=== PATIENT | female | born 1955 | race Caucasian/White ===

== ENCOUNTER → 2016-12-22 | Outpatient (CLI) | payer OTHER ==
--- NOTE | 2016-12-22 18:08 | CT ---
EXAMINATION TYPE: CT brain wo con DATE OF EXAM: 12/22/2016 5:47 PM COMPARISON: NONE HISTORY: Confusion and FITZGERALD. CT DLP: 975.1 mGycm Automated exposure control for dose reduction was used. FINDINGS: There is moderate patchy hypodensity in the periventricular white matter. There is mild enlargement o f the ventricles. There is no mass effect nor midline shift. There is no sign of intracranial hemorrh age. There is mild cerebral atrophy. There is probably hypodensity as well in the jane. IMPRESSION: Chronic small vessel ischemia. Mild normal pressure type hydrocephalus. No acute intracranial abnorma lity.
== END | disposition home or self-care (01) ==
LOC: RADCTMAIN 17:19
PROVIDERS: ATTEND Family Medicine
DX: I67.82 Cerebral ischemia (principal); G91.9 Hydrocephalus, unspecified
CPT/HCPCS: 70450

== ENCOUNTER → 2017-01-30 | Outpatient (CLI) | payer OTHER ==
--- NOTE | 2017-01-30 10:03 | US ---
EXAMINATION TYPE: US abdomen complete DATE OF EXAM: 01/30/2017 9:28 AM COMPARISON: NONE CLINICAL HISTORY: R94.4 Elevated Liver enzymes,Z86.19 HX HEP C. No pain, NPO EXAM MEASUREMENTS: Liver Length: 19.6 cm Gallbladder Wall: 0.1 cm CBD: 0.5 cm CHD: 0.4 Spleen: 10.2 cm Right Kidney: 12.2 x 5.1 x 4.2 cm Left Kidney: 10.7 x 4.9 x 6.1 cm Pancreas: echogenic, main pancreatic duct- 2.1mm Liver: echogenic, no masses or lesions seen Gallbladder: wnl Evidence for sonographic Bruce's sign: neg CBD: wnl CHD: wnl Spleen: wnl Right Kidney: multiple echogenic foci seen. Largest = 1.3 cm in the lower pole Left Kidney: multiple echogenic foci seen. Largest - 0.8 cm, in the upper pole. Upper IVC: seen Abd Aorta: seen The pancreas is echogenic and likely fatty infiltrated. The liver is enlarged measuring 20 cm. It is echogenic and likely fatty infiltrated. The gallbladder is unremarkable. Gallbladder wall measures 1.1 mm. The distal common hepatic duct buzz sures 4 mm. There are multiple echogenic foci seen within the right kidney there are nonshadowing. These may repr esent angiomyolipomas. There is a similar appearance to the left kidney. There is a 1 cm hypoechoic l esion in the upper pole of the left kidney. This does not meet the requirements of a simple cyst. The spleen is not enlarged. Visualized portions of the aorta and IVC are normal. IMPRESSION: 1. HEPATOMEGALY AND FATTY INFILTRATION OF THE LIVER. 2. MULTIPLE ECHOGENIC FOCI WITHIN THE KIDNEYS BILATERALLY THAT ARE NONSHADOWING AND MAY REPRESENT ANG IOMYOLIPOMAS. 3. PROBABLE FATTY INFILTRATION OF THE PANCREAS. 4. 1 CM LESION IN THE UPPER POLE OF THE LEFT KIDNEY DOES NOT MEET THE REQUIREMENTS OF A SIMPLE CYST. CT OR MR WOULD BE SUGGESTED.
== END | disposition home or self-care (01) ==
LOC: RADUSWWP 08:57
PROVIDERS: ATTEND Family Medicine
DX: R16.0 Hepatomegaly, not elsewhere classified (principal); K76.0 Fatty (change of) liver, not elsewhere classified; Z86.19 Personal history of other infectious and parasitic diseases
CPT/HCPCS: 76700

== ENCOUNTER → 2017-02-04 | Outpatient (CLI) | payer OTHER ==
[2017-02-04 12:13] LABS: CH 30.3; CHCM 33.8; HCT 40.3 % (34.0-46.0); HDW 2.71; HGB 13.6 gm/dL (11.4-16.0); MCH 30.3 pg (25.0-35.0); MCHC 33.7 g/dL (31.0-37.0); MCV 89.8 fL (80.0-100.0); Mean Platelet Volume 6.8; RBC 4.48 m/uL (3.80-5.40); RDW 14.1 % (11.5-15.5); WBC 9.4 k/uL (3.8-10.6)
[2017-02-04 13:49] LABS: ALT 129 U/L (9-52); AST 110 U/L (14-36); Alkaline Phosphatase 44 U/L (38-126); Anion Gap 14 mmol/L; Blood Urea Nitrogen 18 mg/dL (7-17); Calcium 9.8 mg/dL (8.4-10.2); Carbon Dioxide 25 mmol/L (22-30); Chloride 103 mmol/L (98-107); Glucose 211 mg/dL (74-99); Non-African American GFR(MDRD) >60 (>60 ml/min/1.73 sqM); Potassium 4.4 mmol/L (3.5-5.1); Sodium 142 mmol/L (137-145); Total Bilirubin 0.6 mg/dL (0.2-1.3); Total Protein 7.3 g/dL (6.3-8.2)
[2017-02-04 14:31] LABS: Vitamin B12 414 pg/mL (239-931)
== END | disposition home or self-care (01) ==
LOC: LABWHC1 11:39
PROVIDERS: ATTEND Psychiatry & Neurology Pain Medicine
DX: G91.2 (Idiopathic) normal pressure hydrocephalus (principal)
CPT/HCPCS: 36415; 80053; 82607; 84439; 84443; 84481; 85027

== ENCOUNTER → 2017-02-13 | Outpatient (CLI) | payer OTHER ==
[2017-02-13 18:06] LABS: Blood Urea Nitrogen 22 mg/dL (7-17); Non-African American GFR(MDRD) >60 (>60 ml/min/1.73 sqM)
--- NOTE | 2017-02-14 07:37 | CT ---
EXAMINATION TYPE: CT abdomen wo/w con DATE OF EXAM: 02/13/2017 6:36 PM HISTORY: Patient poor historian. Left side renal mass. Abnormal ultrasound. CT DLP: 723.8mGycm Automated Exposure Control for Dose Reduction was Utilized. CONTRAST: CT scan of the abdomen is performed with oral and without and with IV Contrast, patient injected with 100 mL of Omnipaque 300. COMPARISON: Complete abdominal ultrasound January 30, 2017. FINDINGS: LUNG BASES: Cardiomegaly is present. Coronary artery calcification in the RCA is noted. LIVER/GB: Noncontrast images show liver diffusely hypodense consistent with fatty infiltration. PANCREAS: No significant abnormality is seen. SPLEEN: There is 1 cm splenule in the inferior splenic hilum on axial image 21. ADRENALS: No significant abnormality is seen. KIDNEYS: There are multiple pole renal calculi identified bilaterally. Central calcifications could r eflect some vascular calcifications making accurate counting difficult. Calculi measure up to 6 mm in size in the left kidney upper pole level on axial image 24 and 6 mm lower pole level right kidney on axial image 39. Lobulated contour to both kidneys is seen. There is symmetric cortical medullary upt marielos and excretion without evidence of hydronephrosis or obstructing renal calculi bilaterally. Corre sponding to ultrasound upper pole level left kidney anteriorly there is 9 mm low dense lesion too sma ll to further characterize seen best image 23 series 11 but felt to reflect simple cyst. BOWEL: Normal-appearing appendix is seen from cecum. Oral contrast does not reach colonic level. Ther e is no suspicious small or large bowel dilatation. LYMPH NODES: No greater than 1cm abdominal lymph nodes are appreciated. OSSEOUS STRUCTURES: There is facet arthropathy lower lumbar levels. There is mild multilevel spurring in the visualized lower thoracic spine. OTHER: There is ectatic course to the abdominal aorta with mild to moderate calcified atherosclerotic change seen. There are small fat-containing umbilical hernia. IMPRESSION: 1. Multiple nonobstructing bilateral renal calculi. There is subcentimeter lesion medially upper pole level left kidney too small to further characterize felt to reflect simple cysts. No worrisome solid or cystic renal masses are noted bilaterally. 2. Diffuse fatty infiltration of liver is confirmed.
== END | disposition home or self-care (01) ==
LOC: RADCTMAIN 17:22
PROVIDERS: ATTEND Family Medicine
DX: N20.0 Calculus of kidney (principal); N28.9 Disorder of kidney and ureter, unspecified; K76.0 Fatty (change of) liver, not elsewhere classified
CPT/HCPCS: 82565; 84520; 74170; 36415; Q9967

== ENCOUNTER 2017-10-29 12:16 | Emergency (ER) | payer OTHER ==
[2017-10-29 12:30] VITALS: RESP 18
--- NOTE | 2017-10-29 13:14 | ED ---
Psych HPI - General Chief Complaint: Psychiatric Symptoms Stated Complaint: suicidal Time Seen by Provider: 10/29/17 12:19 Source: patient, family, EMS, RN notes reviewed Mode of arrival: EMS Limitations: physical limitation - History of Present Illness Initial Comments: This a 62-year-old female presents emergency Department with chief complaint of left ankle pain, difficulty and bleeding. Patient states she fell a few days ago seen at [facility]. Patient states she has CT of her head and neck, x-rays of her pelvis and it's a server engineer left ankle. Everything was normal except for small fracture of her coccyx region. Patient states the pain seems be unbearable and she states ever since she's been home she just been laying underground scooted along because of her left ankle. She states that she was told it was not fracture. Patient denies any headache or dizziness at this time. Patient states that she has been going on a bedpan or and a brief. She has had some problems with urinary tract infections in the past. She does state that she wishes she would just never wake up again she states that she has had thoughts that she rather just be though she states that she is not specifically suicidal. Family has petitioned her because of her thoughts and inability to care of herself at home. He shouldn't was supposed to start antidepressants though has not started them. - Related Data Home Medications Medication Instructions Recorded Confirmed Insulin Glargine,Hum.rec.anlog 25 unit SQ HS 10/29/17 10/29/17 [Lantus Solostar] Lisinopril 40 mg PO DAILY 10/29/17 10/29/17 Sertraline HCl [Zoloft] 50 mg PO DAILY 10/29/17 10/29/17 glipiZIDE [Glucotrol] 10 mg PO AC-BID 10/29/17 10/29/17 metFORMIN HCL 1,000 mg PO BID 10/29/17 10/29/17 traMADol HCL [Ultram] 50 mg PO Q6HR PRN 10/29/17 10/29/17 Previous Rx's Medication Instructions Recorded Acetaminophen-Codeine 300-30mg 1 tab PO Q4H PRN #20 tablet 10/29/17 [Tylenol #3] Ciprofloxacin HCl [Cipro] 500 mg PO Q12HR #14 tablet 10/29/17 Allergies Allergy/AdvReac Type Severity Reaction Status Date / Time Tetracyclines Allergy Unknown Verified 10/29/17 13:11 Review of Systems ROS Statement: Those systems with pertinent positive or pertinent negative responses have been documented in the HPI. ROS Other: All systems not noted in ROS Statement are negative. Past Medical History Past Medical History: Diabetes Mellitus, Hypertension History of Any Multi-Drug Resistant Organisms: None Reported Past Surgical History: Section, Orthopedic Surgery Past Psychological History: Depression Smoking Status: Current every day smoker Past Alcohol Use History: Occasional Past Drug Use History: None Reported General Exam Limitations: no limitations, physical limitation General appearance: alert, in no apparent distress Head exam: Present: atraumatic, normocephalic, normal inspection Eye exam: Present: normal appearance, PERRL, EOMI. Absent: scleral icterus, conjunctival injection, periorbital swelling ENT exam: Present: normal exam, normal oropharynx, mucous membranes moist Neck exam: Present: normal inspection, full ROM. Absent: tenderness, meningismus, lymphadenopathy Respiratory exam: Present: normal lung sounds bilaterally. Absent: respiratory distress, wheezes, rales, rhonchi, stridor Cardiovascular Exam: Present: regular rate, normal rhythm, normal heart sounds. Absent: systolic murmur, diastolic murmur, rubs, gallop, clicks GI/Abdominal exam: Present: soft, normal bowel sounds. Absent: distended, tenderness, guarding, rebound, rigid Extremities exam: Present: other (Left foot and ankle there is moderate ecchymosis noted tenderness over the lateral malleolus. Neurovascular intact) Back exam: Present: full ROM, tenderness (Tenderness of the lower coccyx sacral region) Neurological exam: Present: alert, oriented X3, CN II-XII intact, reflexes normal. Absent: motor sensory deficit Psychiatric exam: Present: depressed Skin exam: Present: warm, dry, intact, normal color. Absent: rash Course Vital Signs 10/29/17 10/29/17 12:21 14:27 Temperature 97.4 F L Pulse Rate 97 102 H Respiratory 18 18 Rate Blood Pressure 196/95 171/80 O2 Sat by Pulse 98 100 Oximetry Medical Decision Making - Medical Decision Making 62-year-old female presented emergency department for ankle pain, psychiatric evaluation. Patient reportedly had a fall a few days ago negative x-rays repeat x-rays here show no acute fracture. Patient was able to ambulate with assistance here she will be given an Aircast splint for support, written short course of pain medication and she is advised to use either her walker or cane that she has at home. Patient was evaluated by EPS his family states that she is depressed though they found no evidence of an patient criteria. She is not suicidal has no plan to harm her self. Patient will be follow-up outpatient and return for any worsening symptoms. Patient and family agree to plan - Lab Data Result diagrams: 10/29/17 13:08 10/29/17 13:08 Lab Results 10/29/17 10/29/17 10/29/17 Range/Units 13:08 13:08 14:20 WBC 9.5 (3.8-10.6) k/uL RBC 5.01 (3.80-5.40) m/uL Hgb 14.7 (11.4-16.0) gm/dL Hct 44.0 (34.0-46.0) % MCV 87.7 (80.0-100.0) fL MCH 29.3 (25.0-35.0) pg MCHC 33.4 (31.0-37.0) g/dL RDW 13.1 (11.5-15.5) % Plt Count 230 (150-450) k/uL Neutrophils % 72 % Lymphocytes % 22 % Monocytes % 4 % Eosinophils % 1 % Basophils % 0 % Neutrophils # 6.8 (1.3-7.7) k/uL Lymphocytes # 2.1 (1.0-4.8) k/uL Monocytes # 0.4 (0-1.0) k/uL Eosinophils # 0.1 (0-0.7) k/uL Basophils # 0.0 (0-0.2) k/uL Sodium 140 (137-145) mmol/L Potassium 3.8 (3.5-5.1) mmol/L Chloride 102 (98-107) mmol/L Carbon Dioxide 23 (22-30) mmol/L Anion Gap 15 mmol/L BUN 18 H (7-17) mg/dL Creatinine 0.56 (0.52-1.04) mg/dL Est GFR (MDRD) Af Amer >60 (>60 ml/min/1.73 sqM) Est GFR (MDRD) Non-Af >60 (>60 ml/min/1.73 sqM) Glucose 262 H (74-99) mg/dL Calcium 9.5 (8.4-10.2) mg/dL Total Bilirubin 0.7 (0.2-1.3) mg/dL AST 44 H (14-36) U/L ALT 58 H (9-52) U/L Alkaline Phosphatase 55 (38-126) U/L Creatine Kinase 338 H (30-135) U/L Total Protein 7.2 (6.3-8.2) g/dL Albumin 4.3 (3.5-5.0) g/dL Urine Color Yellow Urine Appearance Cloudy H (Clear) Urine pH 5.5 (5.0-8.0) Ur Specific [place] 1.019 (1.001-1.035) Urine Protein 1+ H (Negative) Urine Glucose (UA) 4+ H (Negative) Urine Ketones 2+ H (Negative) Urine Blood Small H (Negative) Urine Nitrite Positive H (Negative) Urine Bilirubin Negative (Negative) Urine Urobilinogen <2.0 (<2.0) mg/dL Ur Leukocyte Esterase Large H (Negative) Urine RBC 12 H (0-5) /hpf Urine WBC >182 H (0-5) /hpf Urine WBC Clumps Few H (None) /hpf Ur Squamous Epith Cells 6 H (0-4) /hpf Urine Bacteria Many H (None) /hpf Urine Mucus Rare H (None) /hpf Urine Yeast (Budding) Many H (None) /hpf Urine Opiates Screen Not Detected (NotDetected) Ur Oxycodone Screen Not Detected (NotDetected) Urine Methadone Screen Not Detected (NotDetected) Ur Propoxyphene Screen Not Detected (NotDetected) Ur Barbiturates Screen Not Detected (NotDetected) U Tricyclic Antidepress Not Detected (NotDetected) Ur Phencyclidine Scrn Not Detected (NotDetected) Ur Amphetamines Screen Not Detected (NotDetected) U Methamphetamines Scrn Not Detected (NotDetected) U Benzodiazepines Scrn Not Detected (NotDetected) Urine Cocaine Screen Not Detected (NotDetected) U Marijuana (THC) Screen Not Detected (NotDetected) Serum Alcohol <10 mg/dL Disposition Clinical Impression: Left ankle sprain, UTI (urinary tract infection), Depression Disposition: HOME SELF-CARE Condition: Stable Instructions: Ankle Sprain (ED) Additional Instructions: Please return to the Emergency Department if symptoms worsen or any other concerns. Prescriptions: Acetaminophen-Codeine 300-30mg [Tylenol #3] 1 tab PO Q4H PRN #20 tablet PRN Reason: pain Ciprofloxacin HCl [Cipro] 500 mg PO Q12HR #14 tablet Referrals: Nakita Meyer MD [Primary Care Provider] - 1-2 days Time of Disposition: 16:18
[2017-10-29 13:24] LABS: Basophils % (A) 0 %; Eosinophils # (A) 0.1 k/uL (0-0.7); Eosinophils % (A) 1 %; HGB 14.7 gm/dL (11.4-16.0); Lymphocytes # (A) 2.1 k/uL (1.0-4.8); Lymphocytes % (A) 22 %; MCH 29.3 pg (25.0-35.0); MCHC 33.4 g/dL (31.0-37.0); MCV 87.7 fL (80.0-100.0); Mean Platelet Volume 7.6; Monocytes # (A) 0.4 k/uL (0-1.0); Monocytes % (A) 4 %; Neutrophils # (A) 6.8 k/uL (1.3-7.7); Neutrophils % (A) 72 %; Platelet Count 230 k/uL (150-450); RBC 5.01 m/uL (3.80-5.40); RDW 13.1 % (11.5-15.5); WBC 9.5 k/uL (3.8-10.6)
[2017-10-29 13:32] LABS: ALT 58 U/L (9-52); AST 44 U/L (14-36); Albumin 4.3 g/dL (3.5-5.0); Alcohol <10 mg/dL; Alkaline Phosphatase 55 U/L (38-126); Anion Gap 15 mmol/L; Blood Urea Nitrogen 18 mg/dL (7-17); Calcium 9.5 mg/dL (8.4-10.2); Carbon Dioxide 23 mmol/L (22-30); Chloride 102 mmol/L (98-107); Creatine Kinase 338 U/L (30-135); Glucose 262 mg/dL (74-99); Potassium 3.8 mmol/L (3.5-5.1); Sodium 140 mmol/L (137-145); Total Bilirubin 0.7 mg/dL (0.2-1.3); Total Protein 7.2 g/dL (6.3-8.2)
--- NOTE | 2017-10-29 13:37 | XR ---
EXAMINATION TYPE: XR ankle complete LT DATE OF EXAM: 10/29/2017 COMPARISON: NONE HISTORY: Pain TECHNIQUE: 3 views of the left ankle are submitted for evaluation. FINDINGS: There is no evidence for fracture or dislocation. Ankle mortise is intact. Soft tissues are within normal limits. IMPRESSION: 1. No evidence for acute fracture.
[2017-10-29 14:44] LABS: Appearance,Urine Cloudy (Clear); Bacteria,Urine Many /hpf; Bilirubin,Urine Negative (Negative); Blood,Urine Small (Negative); Budding Yeast,Urine Many /hpf; Color,Urine Yellow; Glucose,Urine (UA) 4+ (Negative); Leukocyte Esterase,Urine Large (Negative); Mucus,Urine Rare /hpf; Nitrite,Urine Positive (Negative); PH, Urine 5.5 (5.0-8.0); Protein,Urine 1+ (Negative); RBC,Urine 12 /hpf (0-5); Specific Gravity,Urine 1.019 (1.001-1.035); Squamous Epithelial Cell,Urine 6 /hpf (0-4); Urobilinogen,Urine <2.0 mg/dL (<2.0); WBC,Urine >182 /hpf (0-5)
[2017-10-29] MEDS: LEVOFLOXACIN 500 MG TAB PO STA ×2 (14:52→15:14)
[2017-10-29] MEDS ORDERED: LISINOPRIL 20 MG TAB PO STA (14:52)
[2017-10-29 14:55] LABS: Amphetamine Screen,Urine Not Detected (NotDetected); Barbiturate Screen,Urine Not Detected (NotDetected); Benzodiazepines Screen,Urine Not Detected (NotDetected); Cocaine Screen,Urine Not Detected (NotDetected); Methadone Screen, Urine Not Detected (NotDetected); Opiate Screen,Urine Not Detected (NotDetected); Oxycodone Screen, Urine Not Detected (NotDetected); Phencyclidine Screen,Urine Not Detected (NotDetected); Tricyclic Antidepressant,Urine Not Detected (NotDetected); Urn Cannabinoid Scrn Not Detected (NotDetected)
[2017-10-29 15:20] LABS: Ketones,Urine 2+ (Negative)
[2017-10-29 16:49] VITALS: BP 162/77; PULSE 116; TEMP 97.3
== END 2017-10-29 16:50 | disposition home or self-care (01) ==
LOC: EC 12:16
DX: S93.402A Sprain of unspecified ligament of left ankle, initial encounter (principal); N39.0 Urinary tract infection, site not specified; F32.9 Major depressive disorder, single episode, unspecified; E11.9 Type 2 diabetes mellitus without complications; I10 Essential (primary) hypertension; Z79.4 Long term (current) use of insulin; Z79.899 Other long term (current) drug therapy; Z88.1 Allergy status to other antibiotic agents; W19.XXXA Unspecified fall, initial encounter
CPT/HCPCS: 82075; 36415; 80053; 82550; 85025; 81001; 80306; 80320; 73610; 99284; 29515; L4350

== ENCOUNTER → 2018-01-08 | Outpatient (CLI) | payer OTHER ==
--- NOTE | 2018-01-09 12:27 | MR ---
MR brain without contrast HISTORY: Memory loss, R 41.3 Multiplanar multisequence imaging through the brain Correlation to CT brain 12/22/2016. There are some technical limitations. There is no restricted diffusion. Cortical atrophy is again noted. White matter demyelination changes are extensive, there is abnormal increased signal also noted within the jane with a correlating low signal on T1-weighted images suggestive of some local encephalomalacia. Some encephalomalacia also terrazas spected within the corpus callosum and left cerebellar hemisphere. The pituitary, cervical medullary junction, cerebellopontine angles are within normal limits. No evident hemorrhage. Prominence of the ventricles likely in accordance with patient's cortical atrophy. The orbits show symmetric appearance . There are normal vascular flow voids. IMPRESSION: Exam is somewhat technically limited. Findings likely represent chronic small vessel isch emic changes, age related atrophy.
== END ==
LOC: RADMRIMAIN 19:45
PROVIDERS: ATTEND Psychiatry & Neurology Pain Medicine
DX: R41.3 Other amnesia (principal)
CPT/HCPCS: 70551

== ENCOUNTER 2018-03-05 14:16 | Inpatient (IN) | payer OTHER ==
[2018-03-05] MEDS ORDERED: SODIUM CHLORIDE 0.9% 1,000 ML IV STA ×2 (14:31)
[2018-03-05] MEDS ORDERED: RX INFO: IV CONTRAST WAS GIVEN 1 EACH MISC MISCELLANE PRN (14:31)
[2018-03-05] MEDS ORDERED: ACETAMINOPHEN IV (For NPO) 1,000 MG in EMPTY BAG 1 BAG IVPB STA (14:31)
[2018-03-05] MEDS ORDERED: cefTRIAXone 2,000 MG in SODIUM CHLORIDE 0.9% 100 ML IVPB STA (14:32)
[2018-03-05] MEDS ORDERED: cefTRIAXone IN SWFI 2,000 MG/20 ML SYRINGE IVP STA (14:34)
--- NOTE | 2018-03-05 14:58 | ED ---
General Adult HPI - General Chief complaint: Neuro Symptoms/Deficit Stated complaint: Poss CVA Time Seen by Provider: 03/05/18 14:22 Source: patient, family, EMS, RN notes reviewed, old records reviewed Mode of arrival: EMS Limitations: no limitations - History of Present Illness Initial comments: This is a 8-year-old female the ER for evaluation. Patient is accepted in transfer for evaluation regarding CVA. Patient had 2 visits to [facility] yesterday for evaluation. Personal for nausea vomiting second was for severe left-sided weakness and paralysis hemiparesis. Patient was found on ground at her house. By family, unknown time of onset of symptoms. Patient has history of CVA with history of diabetes and hypertension. Patient accepted in transfer for evaluation regarding CVA. Patient herself is complaining of severe left-sided weakness - Related Data Home Medications Medication Instructions Recorded Confirmed Insulin Glargine,Hum.rec.anlog 33 unit SQ HS 10/29/17 03/05/18 [Lantus Solostar] Lisinopril 40 mg PO DAILY 10/29/17 03/05/18 Sertraline HCl [Zoloft] 50 mg PO DAILY 10/29/17 03/05/18 glipiZIDE [Glucotrol] 10 mg PO AC-BID 10/29/17 03/05/18 metFORMIN HCL 1,000 mg PO BID 10/29/17 03/05/18 traMADol HCL [Ultram] 50 mg PO Q6HR PRN 10/29/17 03/05/18 Aspirin EC [Ecotrin Low Dose] 81 mg PO DAILY 03/05/18 03/05/18 Allergies Allergy/AdvReac Type Severity Reaction Status Date / Time Tetracyclines Allergy Unknown Verified 03/05/18 14:52 Review of Systems ROS Statement: Those systems with pertinent positive or pertinent negative responses have been documented in the HPI. ROS Other: All systems not noted in ROS Statement are negative. Past Medical History Past Medical History: CVA/TIA, Diabetes Mellitus, Hypertension Additional Past Medical History / Comment(s): cva 2005 History of Any Multi-Drug Resistant Organisms: None Reported Past Surgical History: Section, Orthopedic Surgery Additional Past Surgical History / Comment(s): left knee sx Past Psychological History: Depression Smoking Status: Current every day smoker Past Alcohol Use History: Occasional Past Drug Use History: None Reported General Exam - General Exam Comments Initial Comments: NIH of 15, left-sided hemiparesis with left gaze Limitations: no limitations General appearance: alert, in no apparent distress Head exam: Present: atraumatic, normocephalic, normal inspection Eye exam: Present: normal appearance, PERRL, EOMI. Absent: scleral icterus, conjunctival injection, periorbital swelling ENT exam: Present: normal exam, mucous membranes moist Neck exam: Present: normal inspection. Absent: tenderness, meningismus, lymphadenopathy Respiratory exam: Present: normal lung sounds bilaterally. Absent: respiratory distress, wheezes, rales, rhonchi, stridor Cardiovascular Exam: Present: regular rate, normal rhythm, normal heart sounds. Absent: systolic murmur, diastolic murmur, rubs, gallop, clicks GI/Abdominal exam: Present: soft, normal bowel sounds. Absent: distended, tenderness, guarding, rebound, rigid Extremities exam: Present: normal inspection, full ROM, normal capillary refill. Absent: tenderness, pedal edema, joint swelling, calf tenderness Back exam: Present: normal inspection Neurological exam: Present: alert, oriented X3, CN II-XII intact Psychiatric exam: Present: normal affect, normal mood Skin exam: Present: warm, dry, intact, normal color. Absent: rash Course Vital Signs 03/05/18 03/05/18 03/05/18 14:19 14:30 15:30 Temperature 98.8 F Pulse Rate 99 98 96 Respiratory 18 18 18 Rate Blood Pressure 159/74 182/86 161/77 O2 Sat by Pulse 95 98 98 Oximetry - Reevaluation(s) Reevaluation #1: 03/05/18 14:58 Spoke with transferring physician, positive CVA Reevaluation #2: 03/05/18 16:39 Note TPA secondary to a patient transfer secondary to time of onset, poor historian EKG Findings - EKG Comments: EKG Findings:: EKG shows normal sinus rhythm rate of 97, NH 196, QRS 90, QTc 474 Medical Decision Making - Medical Decision Making 62 female accepted in transfer for CVA with left-sided hemiparesis. Patient also noted to be fevers with UTI. We'll place on antibiotics rehydrate give aspirin admit patient for evaluation regarding CVA. Patient has history of CVA. Patient is poor historian, - Lab Data Result diagrams: 03/05/18 15:00 03/05/18 15:00 Lab Results 03/05/18 03/05/18 03/05/18 Range/Units 15:00 15:00 15:00 WBC 15.5 H (3.8-10.6) k/uL RBC 4.60 (3.80-5.40) m/uL Hgb 13.2 (11.4-16.0) gm/dL Hct 39.1 (34.0-46.0) % MCV 84.9 (80.0-100.0) fL MCH 28.6 (25.0-35.0) pg MCHC 33.7 (31.0-37.0) g/dL RDW 14.0 (11.5-15.5) % Plt Count 240 (150-450) k/uL Neutrophils % 86 % Lymphocytes % 9 % Monocytes % 3 % Eosinophils % 1 % Basophils % 0 % Neutrophils # 13.4 H (1.3-7.7) k/uL Lymphocytes # 1.4 (1.0-4.8) k/uL Monocytes # 0.5 (0-1.0) k/uL Eosinophils # 0.1 (0-0.7) k/uL Basophils # 0.0 (0-0.2) k/uL PT (9.0-12.0) sec INR (<1.2) APTT (22.0-30.0) sec Sodium 139 (137-145) mmol/L Potassium 3.4 L (3.5-5.1) mmol/L Chloride 101 (98-107) mmol/L Carbon Dioxide 24 (22-30) mmol/L Anion Gap 14 mmol/L BUN 17 (7-17) mg/dL Creatinine 0.47 L (0.52-1.04) mg/dL Est GFR (CKD-EPI)AfAm >90 (>60 ml/min/1.73 sqM) Est GFR (CKD-EPI)NonAf >90 (>60 ml/min/1.73 sqM) Glucose 182 H (74-99) mg/dL Calcium 9.2 (8.4-10.2) mg/dL Total Bilirubin 0.4 (0.2-1.3) mg/dL AST 21 (14-36) U/L ALT 38 (9-52) U/L Alkaline Phosphatase 46 (38-126) U/L Total Creatine Kinase 87 (30-135) U/L CK-MB (CK-2) 1.2 (0.0-2.4) ng/mL CK-MB (CK-2) Rel Index 1.4 Troponin I <0.012 (0.000-0.034) ng/mL Total Protein 6.9 (6.3-8.2) g/dL Albumin 4.3 (3.5-5.0) g/dL Urine Color Urine Appearance (Clear) Urine pH (5.0-8.0) Ur Specific [place] (1.001-1.035) Urine Protein (Negative) Urine Glucose (UA) (Negative) Urine Ketones (Negative) Urine Blood (Negative) Urine Nitrite (Negative) Urine Bilirubin (Negative) Urine Urobilinogen (<2.0) mg/dL Ur Leukocyte Esterase (Negative) Urine RBC (0-5) /hpf Urine WBC (0-5) /hpf Ur Squamous Epith Cells (0-4) /hpf Urine Mucus (None) /hpf Influenza Type A RNA (Not Detectd) Influenza Type B (PCR) (Not Detectd) 03/05/18 03/05/18 03/05/18 Range/Units 15:00 15:00 15:20 WBC (3.8-10.6) k/uL RBC (3.80-5.40) m/uL Hgb (11.4-16.0) gm/dL Hct (34.0-46.0) % MCV (80.0-100.0) fL MCH (25.0-35.0) pg MCHC (31.0-37.0) g/dL RDW (11.5-15.5) % Plt Count (150-450) k/uL Neutrophils % % Lymphocytes % % Monocytes % % Eosinophils % % Basophils % % Neutrophils # (1.3-7.7) k/uL Lymphocytes # (1.0-4.8) k/uL Monocytes # (0-1.0) k/uL Eosinophils # (0-0.7) k/uL Basophils # (0-0.2) k/uL PT 10.1 (9.0-12.0) sec INR 1.0 (<1.2) APTT 23.7 (22.0-30.0) sec Sodium (137-145) mmol/L Potassium (3.5-5.1) mmol/L Chloride (98-107) mmol/L Carbon Dioxide (22-30) mmol/L Anion Gap mmol/L BUN (7-17) mg/dL Creatinine (0.52-1.04) mg/dL Est GFR (CKD-EPI)AfAm (>60 ml/min/1.73 sqM) Est GFR (CKD-EPI)NonAf (>60 ml/min/1.73 sqM) Glucose (74-99) mg/dL Calcium (8.4-10.2) mg/dL Total Bilirubin (0.2-1.3) mg/dL AST (14-36) U/L ALT (9-52) U/L Alkaline Phosphatase (38-126) U/L Total Creatine Kinase (30-135) U/L CK-MB (CK-2) (0.0-2.4) ng/mL CK-MB (CK-2) Rel Index Troponin I (0.000-0.034) ng/mL Total Protein (6.3-8.2) g/dL Albumin (3.5-5.0) g/dL Urine Color Yellow Urine Appearance Clear (Clear) Urine pH 5.5 (5.0-8.0) Ur Specific [place] >1.050 H (1.001-1.035) Urine Protein 1+ H (Negative) Urine Glucose (UA) Negative (Negative) Urine Ketones Negative (Negative) Urine Blood Large H (Negative) Urine Nitrite Negative (Negative) Urine Bilirubin Negative (Negative) Urine Urobilinogen <2.0 (<2.0) mg/dL Ur Leukocyte Esterase Moderate H (Negative) Urine RBC 50 H (0-5) /hpf Urine WBC >182 H (0-5) /hpf Ur Squamous Epith Cells 13 H (0-4) /hpf Urine Mucus Occasional H (None) /hpf Influenza Type A RNA Not Detected (Not Detectd) Influenza Type B (PCR) Not Detected (Not Detectd) - Radiology Data Radiology results: report reviewed (S x-ray CT brain CTA had neck negative), image reviewed Disposition Clinical Impression: Cerebrovascular accident, UTI (urinary tract infection) Disposition: ADMITTED IP TO THIS HOSP Condition: Serious Is patient prescribed a controlled substance at d/c from ED?: No Referrals: Nakita Meyer MD [Primary Care Provider] - 1-2 days
--- NOTE | 2018-03-05 15:01 | CT ---
EXAMINATION TYPE: CT brain wo con for TPA DATE OF EXAM: 03/05/2018 COMPARISON: Prior CT brain 12/22/2016 HISTORY: Left sided weakness CT DLP: 853.3 mGycm Automated exposure control for dose reduction was used. Helical imaging through the brain. FINDINGS: Cerebral vascular calcifications are present. Cortical atrophy is again noted. There is no hemorrhage or hydrocephalus. Periventricular white matter shows patchy low attenuation as on prior exam. IMPRESSION: NO ACUTE ABNORMALITY. AGE-RELATED ATROPHY AND CHRONIC SMALL VESSEL ISCHEMIA.
--- NOTE | 2018-03-05 15:15 | CT ---
EXAMINATION TYPE: CT angio head neck DATE OF EXAM: 03/05/2018 HISTORY: Left sided weakness COMPARISON: CT brain same date CT DLP: 274.1 mGycm. Automated Exposure Control for Dose Reduction was Utilized. TECHNIQUE: CTA scan of the neck is performed with IV Contrast, patient injected with 65 mL of Isovue 370, axial images are obtained, coronal and sagittal reformatted images are reviewed. Three-D recons tructed images are created on an independent workstation and reviewed. FINDINGS: Carotid/Vascular Structures: No significant stenosis is evident. The thoracic aorta is patent, there is a three-vessel arch present. Left and right subclavian arteries, left and right common carotid art eries, innominate artery are patent. No evident dissection or embolus. No significant stenosis of the proximal internal carotid arteries is seen. Left vertebral artery is dominant. Basilar artery is pat ent. Internal carotid arteries are patent within the calvarium. No evident aneurysm. Cerebral vascula r calcifications are present. Other: Lung apices show no mass. Degenerative disc changes are present in the visualized spine. IMPRESSION: No evident embolus or aneurysm, no dissection. Cerebral vascular disease is noted.
[2018-03-05 15:16] LABS: Basophils % (A) 0 %; Eosinophils # (A) 0.1 k/uL (0-0.7); Eosinophils % (A) 1 %; HCT 39.1 % (34.0-46.0); HGB 13.2 gm/dL (11.4-16.0); Lymphocytes # (A) 1.4 k/uL (1.0-4.8); Lymphocytes % (A) 9 %; MCH 28.6 pg (25.0-35.0); MCHC 33.7 g/dL (31.0-37.0); MCV 84.9 fL (80.0-100.0); Monocytes # (A) 0.5 k/uL (0-1.0); Monocytes % (A) 3 %; Neutrophils # (A) 13.4 k/uL (1.3-7.7); Neutrophils % (A) 86 %; Platelet Count 240 k/uL (150-450); WBC 15.5 k/uL (3.8-10.6)
[2018-03-05 15:23] LABS: ALT 38 U/L (9-52); AST 21 U/L (14-36); Albumin 4.3 g/dL (3.5-5.0); Alkaline Phosphatase 46 U/L (38-126); Anion Gap 14 mmol/L; Blood Urea Nitrogen 17 mg/dL (7-17); Calcium 9.2 mg/dL (8.4-10.2); Carbon Dioxide 24 mmol/L (22-30); Chloride 101 mmol/L (98-107); Glucose 182 mg/dL (74-99); Potassium 3.4 mmol/L (3.5-5.1); Sodium 139 mmol/L (137-145); Total Bilirubin 0.4 mg/dL (0.2-1.3); Total Protein 6.9 g/dL (6.3-8.2)
[2018-03-05 15:26] LABS: Partial Thromboplastin Time 23.7 sec (22.0-30.0); Prothrombin Time 10.1 sec (9.0-12.0)
[2018-03-05 15:40] LABS: Creatine Kinase 87 U/L (30-135)
[2018-03-05 15:42] LABS: Appearance,Urine Clear (Clear); Bilirubin,Urine Negative (Negative); Blood,Urine Large (Negative); Color,Urine Yellow; Glucose,Urine (UA) Negative (Negative); Ketones,Urine Negative (Negative); Leukocyte Esterase,Urine Moderate (Negative); Mucus,Urine Occasional /hpf; Nitrite,Urine Negative (Negative); PH, Urine 5.5 (5.0-8.0); Protein,Urine 1+ (Negative); RBC,Urine 50 /hpf (0-5); Squamous Epithelial Cell,Urine 13 /hpf (0-4); Urobilinogen,Urine <2.0 mg/dL (<2.0); WBC,Urine >182 /hpf (0-5)
[2018-03-05 15:43] LABS: Specific Gravity,Urine >1.050 (1.001-1.035)
[2018-03-05 15:54] LABS: Creatine Kinase MB 1.2 ng/mL (0.0-2.4); Troponin I <0.012 ng/mL (0.000-0.034)
--- NOTE | 2018-03-05 16:27 | XR ---
EXAMINATION TYPE: XR chest 2V DATE OF EXAM: 03/05/2018 COMPARISON: NONE HISTORY: Altered mental status TECHNIQUE: Frontal and lateral views of the chest are obtained. FINDINGS: The patient is rotated. There are overlying cardiac leads. There is no focal air space [place] city, pleural effusion, or pneumothorax seen. The cardiac silhouette size is enlarged. The osseous structures are intact. IMPRESSION: Cardiomegaly.
[2018-03-05] MEDS ORDERED: ASPIRIN 325 MG TAB PO STA (16:39)
[2018-03-05] MEDS: ASPIRIN 325 MG TAB PO SCH (18:30)
[2018-03-05] MEDS: SODIUM CHLORIDE 0.9% 1,000 ML IV SCH ×2 (18:33→21:39)
--- NOTE | 2018-03-05 18:40 | P.HPIM ---
History of Present Illness H&P Date: 03/05/18 Chief Complaint: Left-sided weakness overall The patient is a right hand dominant 62-year-old obese female with a past medicall history of type 2 diabetes known to be insulin-dependent, essential hypertension who presents to the ER after being transferred here from [place]. The patient reports that her problems began last night when she fell approximately 10 PM was able to get up, EMS was called and she was taken to [place] where they reportedly did a CAT scan urinalysis which was reportedly negative, the patient reports that she was discharged home not being able to ambulate and subsequently fell at approximately 3 AM this morning, the patient reported feeling lightheaded prior to her fall, she reports a history of several episodes of diarrhea preceding the event. On waking up at approximately 11:30 today the patient was unable to move the left side of her body, she was also slurring her speech, and had a left-sided facial droop and eyelid ptosis. The patient does report some head trauma in the occipital area but denies any loss of consciousness or blurry vision. The patient has previously been seen by Dr. Blake in neurology clinic, the patient is an ongoing smoker. The patient denied any chest pain or shortness of breath. In the ER she was given aspirin and recommended for admission to rule out right MCA stroke. The patient's previous workup done at [place] was sent here on disc, on admission the patient was noted to have a urinalysis is of a UTI she was started on Rocephin. Also with noted leukocytosis of 15 Review of Systems 14 point review of systems negative except per HPI Past Medical History Past Medical History: CVA/TIA, Diabetes Mellitus, Hypertension Additional Past Medical History / Comment(s): cva 2005 History of Any Multi-Drug Resistant Organisms: None Reported Past Surgical History: Section, Orthopedic Surgery Additional Past Surgical History / Comment(s): left knee sx Past Psychological History: Depression Smoking Status: Current every day smoker Past Alcohol Use History: Occasional Past Drug Use History: None Reported Medications and Allergies Home Medications Medication Instructions Recorded Confirmed Type Insulin Glargine,Hum.rec.anlog 33 unit SQ HS 10/29/17 03/05/18 History [Lantus Solostar] Lisinopril 40 mg PO DAILY 10/29/17 03/05/18 History Sertraline HCl [Zoloft] 50 mg PO DAILY 10/29/17 03/05/18 History glipiZIDE [Glucotrol] 10 mg PO AC-BID 10/29/17 03/05/18 History metFORMIN HCL 1,000 mg PO BID 10/29/17 03/05/18 History traMADol HCL [Ultram] 50 mg PO Q6HR PRN 10/29/17 03/05/18 History Aspirin EC [Ecotrin Low Dose] 81 mg PO DAILY 03/05/18 03/05/18 History Allergies Allergy/AdvReac Type Severity Reaction Status Date / Time Tetracyclines Allergy Unknown Verified 03/05/18 14:52 Physical Exam Vitals: Vital Signs Temp Pulse Pulse Resp BP BP Pulse Ox 03/05/18 17:42 93 16 159/74 99 03/05/18 16:30 90 16 180/81 96 03/05/18 16:00 96 18 155/75 98 03/05/18 15:30 96 18 161/77 98 03/05/18 15:15 96 16 174/79 98 03/05/18 15:00 88 18 190/83 99 03/05/18 14:45 100 18 166/88 98 03/05/18 14:30 98 18 182/86 98 03/05/18 14:19 98.8 F 99 18 159/74 95 Intake and Output 03/05/18 03/05/18 03/05/18 06:59 14:59 22:59 Other: Weight 68.039 kg Constitutional: No acute distress, conversant, pleasant Eyes: Anicteric sclerae, moist conjunctiva, left eye ptosis ENMT: NC/AT,Oropharynx clear, no erythema, exudates Neck:Supple, FROM, no masses, or JVD, No carotid bruits; No thyromegaly Lungs: Clear to auscultation, Clear to percussion, Normal respiratory effort, no accessory muscle use Cardiovascular: Heart regular in rate and rhythm, No murmurs, gallops, or rubs no peripheral edema Abdominal: Soft Nontender, nom distended, no guarding, no rebound or rigidity, Normoactive bowel sounds No hepatomegaly, No splenomegaly, No palpable mass No abdominal wall hernia noted Skin: Normal temperature, tone, texture, turgor, No induration No subcutaneous nodules, No rash, lesions, No ulcers Extremities:No digital cyanosis No clubbing, Pedal pulses intact and symmetrical Radial pulses intact and symmetrical Normal gait and station, No calf tenderness Psychiatric: Alert and oriented to person, place and time, Appropriate affect Intact judgement Neuro: Left-sided hemiparesis, left-sided facial droop, eyelid ptosis. Results CBC & Chem 7: 03/05/18 15:00 03/05/18 15:00 Labs: Abnormal Lab Results - Last 24 Hours (Table) 03/05/18 03/05/18 03/05/18 Range/Units 15:00 15:00 15:20 WBC 15.5 H (3.8-10.6) k/uL Neutrophils # 13.4 H (1.3-7.7) k/uL Potassium 3.4 L (3.5-5.1) mmol/L Creatinine 0.47 L (0.52-1.04) mg/dL Glucose 182 H (74-99) mg/dL Ur Specific [place] >1.050 H (1.001-1.035) Urine Protein 1+ H (Negative) Urine Blood Large H (Negative) Ur Leukocyte Esterase Moderate H (Negative) Urine RBC 50 H (0-5) /hpf Urine WBC >182 H (0-5) /hpf Ur Squamous Epith Cells 13 H (0-4) /hpf Urine Mucus Occasional H (None) /hpf Assessment and Plan (1) Left hemiparesis Current Visit: Yes Status: Acute Code(s): G81.94 - HEMIPLEGIA, UNSPECIFIED AFFECTING LEFT NONDOMINANT SIDE SNOMED Code(s): 670110019 (2) Hypertensive emergency Current Visit: Yes Status: Acute Code(s): I16.1 - HYPERTENSIVE EMERGENCY SNOMED Code(s): 636118706342578 (3) Sepsis Current Visit: Yes Status: Acute Code(s): A41.9 - SEPSIS, UNSPECIFIED ORGANISM SNOMED Code(s): 86816553 (4) Type 2 diabetes mellitus with hyperglycemia Current Visit: Yes Status: Acute Code(s): E11.65 - TYPE 2 DIABETES MELLITUS WITH HYPERGLYCEMIA SNOMED Code(s): 168371021034146 (5) UTI (urinary tract infection) Current Visit: Yes Status: Acute Code(s): N39.0 - URINARY TRACT INFECTION, SITE NOT SPECIFIED SNOMED Code(s): 90522889 (6) Recurrent falls Current Visit: Yes Status: Acute Code(s): R29.6 - REPEATED FALLS SNOMED Code(s): 148309767 Plan: Patient is admitted to the telemetry unit on the neurology unit, and is currently nothing by mouth plan to do a swallow eval, continue with daily aspirin, will order MRI of the head, carotid Dopplers, echocardiogram, and A1c. Patient with hypertensive emergency we'll allow permissive hypertension in attempt to get her blood pressure down systolically in the 150-160 range. Continue with neuro checks consult PTOT and neurology for further recommendations. Review of the patient's records indicates she had a MRI of the head 01/03/18 indicating cerebral atrophy with chronic vessel ischemic disease we'll continue to treat the patient's UTI with Rocephin, start her on gentle hydration with normal saline, check blood and urine cultures, place her on fall precautions and continue to follow her clinical course. We'll place her on lower extremity SCDs for DVT prophylaxis
[2018-03-05 18:58] LABS: Glucose,Whole Blood 109 mg/dL (75-99)
[2018-03-05] MEDS: ATORVASTATIN 20 MG TAB PO SCH (20:18)
[2018-03-05] MEDS: INSULIN DETEMIR 100 UNIT/ML 10 ML VIAL SQ SCH (20:30)
[2018-03-05] MEDS: NICOTINE 14MG/24HR PATCH TRANSDERM SCH (20:49)
[2018-03-06 01:12] LABS: Hemoglobin A1C 7.4 % (4.0-6.0)
[2018-03-06 02:45] LABS: Glucose,Whole Blood 108 mg/dL (75-99)
[2018-03-06 06:40] LABS: Cholesterol 196 mg/dL (<200); HDL Cholesterol 49 mg/dL (40-60); LDL Cholesterol,Calculated 122 mg/dL (0-99); Triglycerides 127 mg/dL (<150)
[2018-03-06 06:45] LABS: Glucose,Whole Blood 159 mg/dL (75-99)
[2018-03-06] MEDS ORDERED: cloNIDine HCL 0.2 MG TAB PO STA (08:11)
--- NOTE | 2018-03-06 08:53 | P.PN ---
Subjective Progress Note Date: 03/06/18 Patient wanting to go home because she had poor sleep last night also complain of stuffiness. Patient would still slurred speech, reports that her tongue feels heavy, still with left sided hemiparesis. Eyelid ptosis and facial droop. Patient's blood pressure elevated systolically in the 200s this morning. Scheduled for MRI shortly. Objective - Vital Signs Vital signs: Vital Signs Temp 97.8 F 03/06/18 04:00 Pulse 90 03/06/18 04:00 Resp 16 03/06/18 04:00 BP 187/99 03/06/18 04:00 Pulse Ox 99 03/06/18 04:00 Intake & Output 03/05/18 03/06/18 03/06/18 18:59 06:59 18:59 Intake Total 100 0 Output Total 850 Balance 100 -850 Weight 68.039 kg 68.5 kg Intake: Intake, IV Titration 100 Amount Sodium Chloride 0.9% 1, 100 000 ml @ 100 mls/hr IV . Q10H [facility] Rx#:[id number] Oral 0 Output: Urine 850 Other: Voiding Method Indwelling Catheter Indwelling Catheter # Voids 1 - Labs CBC & Chem 7: 03/05/18 15:00 03/05/18 15:00 Labs: Abnormal Lab Results - Last 24 Hours (Table) 03/05/18 03/05/18 03/05/18 Range/Units 15:00 15:00 15:20 WBC 15.5 H (3.8-10.6) k/uL Neutrophils # 13.4 H (1.3-7.7) k/uL Potassium 3.4 L (3.5-5.1) mmol/L Creatinine 0.47 L (0.52-1.04) mg/dL Glucose 182 H (74-99) mg/dL POC Glucose (mg/dL) (75-99) mg/dL LDL Cholesterol, Calc (0-99) mg/dL Ur Specific [place] >1.050 H (1.001-1.035) Urine Protein 1+ H (Negative) Urine Blood Large H (Negative) Ur Leukocyte Esterase Moderate H (Negative) Urine RBC 50 H (0-5) /hpf Urine WBC >182 H (0-5) /hpf Ur Squamous Epith Cells 13 H (0-4) /hpf Urine Mucus Occasional H (None) /hpf 03/05/18 03/06/18 03/06/18 Range/Units 18:55 02:34 06:13 WBC (3.8-10.6) k/uL Neutrophils # (1.3-7.7) k/uL Potassium (3.5-5.1) mmol/L Creatinine (0.52-1.04) mg/dL Glucose (74-99) mg/dL POC Glucose (mg/dL) 109 H 108 H (75-99) mg/dL LDL Cholesterol, Calc 122 H (0-99) mg/dL Ur Specific [place] (1.001-1.035) Urine Protein (Negative) Urine Blood (Negative) Ur Leukocyte Esterase (Negative) Urine RBC (0-5) /hpf Urine WBC (0-5) /hpf Ur Squamous Epith Cells (0-4) /hpf Urine Mucus (None) /hpf 03/06/18 Range/Units 06:31 WBC (3.8-10.6) k/uL Neutrophils # (1.3-7.7) k/uL Potassium (3.5-5.1) mmol/L Creatinine (0.52-1.04) mg/dL Glucose (74-99) mg/dL POC Glucose (mg/dL) 159 H (75-99) mg/dL LDL Cholesterol, Calc (0-99) mg/dL Ur Specific [place] (1.001-1.035) Urine Protein (Negative) Urine Blood (Negative) Ur Leukocyte Esterase (Negative) Urine RBC (0-5) /hpf Urine WBC (0-5) /hpf Ur Squamous Epith Cells (0-4) /hpf Urine Mucus (None) /hpf Assessment and Plan (1) Left hemiparesis Narrative/Plan: * Concern for acute MCA CVA with resultant left hemiparesis facial droop, slurred speech and eyelid ptosis * Continue with daily aspirin 325 mg by mouth daily * Neurology Dr. Blake has been consulted for further recommendations * Bedside swallow eval, PT OT consultation * Patient scheduled for MRI and echocardiogram shortly Current Visit: Yes Status: Acute Code(s): G81.94 - HEMIPLEGIA, UNSPECIFIED AFFECTING LEFT NONDOMINANT SIDE SNOMED Code(s): 144716933 (2) Hypertensive emergency Narrative/Plan: * Target blood pressure range systolically 150s to 160s, continue to allow permissive hypertension * We'll give her clonidine 0.2 mg 1 and restart her home dose of lisinopril 40 mg by mouth daily * Continue to monitor closely * Current Visit: Yes Status: Acute Code(s): I16.1 - HYPERTENSIVE EMERGENCY SNOMED Code(s): 221811566239310 (3) Sepsis Narrative/Plan: * Secondary to UTI urine cultures ordered * Patient afebrile, CBC pending * Continue empiric treatment with Rocephin Current Visit: Yes Status: Acute Code(s): A41.9 - SEPSIS, UNSPECIFIED ORGANISM SNOMED Code(s): 42016132 (4) Type 2 diabetes mellitus with hyperglycemia Narrative/Plan: * Continue with correctional scale coverage, patient nothing by mouth we'll advance diet if she passes her bedside swallow * A1c pending * Continue to monitor blood sugars Current Visit: Yes Status: Acute Code(s): E11.65 - TYPE 2 DIABETES MELLITUS WITH HYPERGLYCEMIA SNOMED Code(s): 038302946287556 (5) UTI (urinary tract infection) Current Visit: Yes Status: Acute Code(s): N39.0 - URINARY TRACT INFECTION, SITE NOT SPECIFIED SNOMED Code(s): 29445533 (6) Recurrent falls Current Visit: Yes Status: Acute Code(s): R29.6 - REPEATED FALLS SNOMED Code(s): 888856181 Plan: Anticipate discharge in 2 days
[2018-03-06 09:38] LABS: Basophils % (A) 0 %; Eosinophils # (A) 0.1 k/uL (0-0.7); Eosinophils % (A) 1 %; HCT 41.2 % (34.0-46.0); HGB 13.6 gm/dL (11.4-16.0); Lymphocytes # (A) 1.4 k/uL (1.0-4.8); Lymphocytes % (A) 10 %; MCH 28.4 pg (25.0-35.0); MCHC 32.9 g/dL (31.0-37.0); MCV 86.1 fL (80.0-100.0); Mean Platelet Volume 7.5; Monocytes # (A) 0.5 k/uL (0-1.0); Monocytes % (A) 4 %; Neutrophils # (A) 11.5 k/uL (1.3-7.7); Neutrophils % (A) 85 %; Platelet Count 235 k/uL (150-450); RBC 4.78 m/uL (3.80-5.40); WBC 13.6 k/uL (3.8-10.6)
[2018-03-06 10:09] LABS: Anion Gap 17 mmol/L; Blood Urea Nitrogen 11 mg/dL (7-17); Calcium 8.9 mg/dL (8.4-10.2); Carbon Dioxide 19 mmol/L (22-30); Chloride 104 mmol/L (98-107); Glucose 153 mg/dL (74-99); Potassium 3.2 mmol/L (3.5-5.1); Sodium 140 mmol/L (137-145)
[2018-03-06] MEDS: cefTRIAXone IN SWFI 1,000 MG/10 ML SYRINGE IVP SCH (11:06)
[2018-03-06] MEDS: LISINOPRIL 20 MG TAB PO SCH (11:06)
[2018-03-06] MEDS: ASPIRIN 325 MG TAB PO SCH (11:06)
[2018-03-06 11:55] LABS: Glucose,Whole Blood 193 mg/dL (75-99)
--- NOTE | 2018-03-06 13:48 | MR ---
Brain MRI without contrast HISTORY: Left-sided hemiparesis, weakness Multiplanar multisequence imaging through the brain Correlation to prior brain MR 01/08/2018 Restricted diffusion is noted within the jane which is an interval finding compatible with subacute i schemia. Corresponding signal change is noted on inversion recovery and T2-weighted sequences. White matter signal changes are again noted as on prior on inversion recovery and T2-weighted sequences, th ere are confluent and scattered areas of hyperintensity present. Cortical atrophy is noted. There is no evident hemorrhage or hydrocephalus. Increased signal is noted within the jane as on prior on inve rsion recovery and T2-weighted sequences. Focal encephalomalacia again noted within the jane and infe rior left cerebellar hemisphere with some surrounding gliosis. Cerebellopontine angles, corpus callosum, pituitary, cervical medullary junction are stable. IMPRESSION: Subacute infarct in the brainstem. Chronic small vessel ischemic changes. Additional find ings above.
--- NOTE | 2018-03-06 16:23 | ECHOF ---
Referral Reason:L hemiparesis MEASUREMENTS -------- HEIGHT: 160.0 cm WEIGHT: 68.5 kg BP: IVSd: 1.4 cm (0.6 - 1.1) LVIDd: 4.1 cm (3.9 - 5.3) LVPWd: 1.3 cm (0.6 - 1.1) IVSs: 1.6 cm LVIDs: 3.9 cm LVPWs: 0.8 cm LAESV Index (A-L): 39.54 ml/m Ao Diam: 3.9 cm (2.0 - 3.7) LA Diam: 3.7 cm (2.7 - 3.8) MV EXCURSION: 12.148 mm (> 18.000) MV EF SLOPE: 62 mm/s (70 - 150) EPSS: 0.3 cm MV E [place]: 0.61 m/s MV DecT: 198 ms MV A [place]: 1.00 m/s MV E/A Ratio: 0.61 AR PHT: 452 ms RAP: 5.00 mmHg RVSP: 11.07 mmHg FINDINGS -------- Sinus rhythm. This was a technically adequate study. The left ventricular size is normal. There is mild concentric left ventricular hypertrophy. Overa ll left ventricular systolic function is normal with, an EF between 55 - 60 %. The right ventricle is normal in size. The left atrial size is normal. LA is moderately dilated 34-39 ml/m2 The right atrial size is normal. There is mild aortic valve sclerosis. There is mild aortic regurgitation. Mild mitral annular calcification present. Mild mitral regurgitation is present. Mild tricuspid regurgitation present. There is no evidence of pulmonary hypertension. The right v entricular systolic pressure, as measured by Doppler, is 11.07mmHg. There is no pulmonic regurgitation present. The aortic root size is normal. There is no pericardial effusion. CONCLUSIONS -------- 1. The left ventricular size is normal. 2. There is mild concentric left ventricular hypertrophy. 3. Overall left ventricular systolic function is normal with, an EF between 55 - 60 %. 4. LA is moderately dilated 34-39 ml/m2 5. There is mild aortic valve sclerosis. 6. There is mild aortic regurgitation. 7. Mild mitral annular calcification present. 8. Mild mitral regurgitation is present. 9. Mild tricuspid regurgitation present. 10. There is no evidence of pulmonary hypertension. 11. The right ventricular systolic pressure, as measured by Doppler, is 11.07mmHg. 12. There is no pulmonic regurgitation present. 13. The aortic root size is normal. 14. There is no pericardial effusion. PROJECT ECONOMIST: Deepika Johnson RDCS
[2018-03-06] MEDS: SODIUM CHLORIDE 0.9% 1,000 ML IV SCH ×2 (17:59→19:45)
[2018-03-06 18:46] LABS: Glucose,Whole Blood 178 mg/dL (75-99)
--- NOTE | 2018-03-06 19:18 | P.CNNES ---
History of Present Illness Consult date: 03/06/18 Requesting physician: Jonnie Marr Reason for Consult: CVA History of Present Illness: Patient is a pleasant 62-year-old female who is being evaluated by the neurology service on 03/06/2018 per the request of Dr. Marr for CVA. Patient has a history of hypertension, and insulin-dependent diabetes mellitus. Patient is transferred here from [facility] for stroke. Patient states she was going to the bathroom last evening and her left leg gave out on her and she fell. Family was unable to pick the patient up and called 911. Patient was taken to [facility]. Patient had a computed tomography scan which was reportedly negative. And the patient was discharged home. Patient could not move her left side and family placed her on the floor on a blanket. In the morning patient still was unable to move some they called 911 and patient was again taken to [facility]. Patient was transferred to [facility] for neurological consult. Patient states she takes low-dose aspirin in the home setting. CTA shows no evidence of embolus or aneurysm. CT of the brain showed no acute findings. MRI of the brain showed an acute brainstem infarct. Vital signs on admission were temp 98.8, pulse 99, respiratory rate 18, blood pressure 159/74, and O2 sat 95% on room air. WBC was 15.5, potassium 3.4, creatinine 0.47, and glucose was 182. Urinalysis revealed a UTI. At the time of my evaluation, patient's resting comfortably in bed and appears to be in no acute distress. Family is at the bedside. Review of Systems REVIEW OF SYSTEMS: Otherwise unremarkable and noncontributory. Past Medical History Past Medical History: CVA/TIA, Diabetes Mellitus, Hypertension Additional Past Medical History / Comment(s): cva 2005 History of Any Multi-Drug Resistant Organisms: None Reported Past Surgical History: Section, Orthopedic Surgery Additional Past Surgical History / Comment(s): left knee sx Past Psychological History: Depression Smoking Status: Current every day smoker Past Alcohol Use History: Occasional Past Drug Use History: None Reported Medications and Allergies Home Medications Medication Instructions Recorded Confirmed Type Insulin Glargine,Hum.rec.anlog 33 unit SQ HS 10/29/17 03/05/18 History [Lantus Solostar] Lisinopril 40 mg PO DAILY 10/29/17 03/05/18 History Sertraline HCl [Zoloft] 50 mg PO DAILY 10/29/17 03/05/18 History glipiZIDE [Glucotrol] 10 mg PO AC-BID 10/29/17 03/05/18 History metFORMIN HCL 1,000 mg PO BID 10/29/17 03/05/18 History traMADol HCL [Ultram] 50 mg PO Q6HR PRN 10/29/17 03/05/18 History Aspirin EC [Ecotrin Low Dose] 81 mg PO DAILY 03/05/18 03/05/18 History Allergies Allergy/AdvReac Type Severity Reaction Status Date / Time Tetracyclines Allergy Unknown Verified 03/05/18 14:52 Physical Examination - Vital Signs Vital Signs: Vital Signs Temp Pulse Resp BP Pulse Ox 03/06/18 16:00 99.1 F 85 18 135/71 94 L 03/06/18 15:35 93 L 03/06/18 12:00 100 F H 91 18 148/86 100 03/06/18 08:00 100.1 F H 89 16 217/106 90 L 03/06/18 04:00 97.8 F 79 16 187/99 99 03/06/18 00:00 98 F 88 16 188/102 97 03/05/18 21:10 98.8 F 90 16 188/117 95 03/05/18 20:00 86 16 Intake and Output 03/06/18 03/06/18 03/06/18 06:59 14:59 22:59 Intake Total 0 500 230 Output Total 850 900 Balance -850 500 -670 Intake: Intake, IV Titration 500 Amount Sodium Chloride 0.9% 1, 500 000 ml @ 100 mls/hr IV . Q10H [facility] Rx#:[id number] Oral 0 230 Output: Urine 850 900 Other: Voiding Method Indwelling Catheter Indwelling Catheter # Voids 1 Weight 68.5 kg PHYSICAL EXAM: GENERAL APPEARANCE: Patient is a well-developed, female who appears to be in no acute distress. HEENT: Normocephalic, atraumatic, left facial droop noted Neck is supple with no masses felt. CARDIOVASCULAR: Regular rate and rhythm. ABDOMEN: Nontender, nondistended. EXTREMITIES: Show no edema or clubbing. NEUROLOGICAL EXAM: Patient is awake, alert, and oriented 3. Speech is slightly dysarthric due to left facial droop. Language is normal. Strength is 5/5 in right upper and lower extremity. Strength is 0/5 in left upper and lower extremity. Left facial droop noted on cranial nerve testing. Sensory exam to light touch is normal in all 4 extremities. No tremors or seizure-like activity noted. Results - Laboratory Findings CBC and BMP: 03/06/18 06:13 03/06/18 06:13 Abnormal Lab Findings: Abnormal Labs 03/05/18 03/05/18 03/05/18 15:00 15:00 15:20 WBC 15.5 H Neutrophils # 13.4 H Potassium 3.4 L Carbon Dioxide Creatinine 0.47 L Glucose 182 H POC Glucose (mg/dL) LDL Cholesterol, Calc Ur Specific [place] >1.050 H Urine Protein 1+ H Urine Blood Large H Ur Leukocyte Esterase Moderate H Urine RBC 50 H Urine WBC >182 H Ur Squamous Epith Cells 13 H Urine Mucus Occasional H 03/05/18 03/06/18 03/06/18 18:55 02:34 06:13 WBC Neutrophils # Potassium Carbon Dioxide Creatinine Glucose POC Glucose (mg/dL) 109 H 108 H LDL Cholesterol, Calc 122 H Ur Specific [place] Urine Protein Urine Blood Ur Leukocyte Esterase Urine RBC Urine WBC Ur Squamous Epith Cells Urine Mucus 03/06/18 03/06/18 03/06/18 06:13 06:13 06:31 WBC 13.6 H Neutrophils # 11.5 H Potassium 3.2 L Carbon Dioxide 19 L Creatinine 0.46 L Glucose 153 H POC Glucose (mg/dL) 159 H LDL Cholesterol, Calc Ur Specific [place] Urine Protein Urine Blood Ur Leukocyte Esterase Urine RBC Urine WBC Ur Squamous Epith Cells Urine Mucus 03/06/18 03/06/18 11:52 18:29 WBC Neutrophils # Potassium Carbon Dioxide Creatinine Glucose POC Glucose (mg/dL) 193 H 178 H LDL Cholesterol, Calc Ur Specific [place] Urine Protein Urine Blood Ur Leukocyte Esterase Urine RBC Urine WBC Ur Squamous Epith Cells Urine Mucus Assessment and Plan (1) Cerebrovascular accident Current Visit: Yes Status: Acute Code(s): I63.9 - CEREBRAL INFARCTION, UNSPECIFIED SNOMED Code(s): 238617030 (2) Hypertensive emergency Current Visit: Yes Status: Acute Code(s): I16.1 - HYPERTENSIVE EMERGENCY SNOMED Code(s): 159457091293633 (3) Left hemiparesis Current Visit: Yes Status: Acute Code(s): G81.94 - HEMIPLEGIA, UNSPECIFIED AFFECTING LEFT NONDOMINANT SIDE SNOMED Code(s): 752102354 (4) Type 2 diabetes mellitus with hyperglycemia Current Visit: Yes Status: Acute Code(s): E11.65 - TYPE 2 DIABETES MELLITUS WITH HYPERGLYCEMIA SNOMED Code(s): 353071988180462 (5) UTI (urinary tract infection) Current Visit: Yes Status: Acute Code(s): N39.0 - URINARY TRACT INFECTION, SITE NOT SPECIFIED SNOMED Code(s): 46468067 Plan: Recommendation: MRI of the brain shows patient had an acute brainstem infarct. No evidence of hemorrhage. CTA did not show evidence of any stenosis or aneurysmal change. Patient continues to have left hemiparesis. I will switch her aspirin to Plavix 75 mg by mouth daily. I will order an EEG, fasting lipid panel, and serum homocysteine level. I recommend PT OT and speech to evaluate and treat. Continue neurological checks. I will continue to follow with you. Further recommendations to follow. Thank you for allowing me to participate in the care of your patient. Feel free to call with any questions or concerns. I performed an examination of the patient and discussed the management with the SMALLTALK DEVELOPER. I have reviewed the SMALLTALK DEVELOPER notes and agree with the findings and plan of care.
[2018-03-06] MEDS: NICOTINE 14MG/24HR PATCH TRANSDERM SCH (19:44)
[2018-03-06] MEDS: ATORVASTATIN 20 MG TAB PO SCH (19:45)
[2018-03-06 21:13] LABS: Cholesterol 195 mg/dL (<200); HDL Cholesterol 46 mg/dL (40-60); LDL Cholesterol,Calculated 116 mg/dL (0-99); Triglycerides 166 mg/dL (<150)
[2018-03-06] MEDS: INSULIN DETEMIR 100 UNIT/ML 10 ML VIAL SQ SCH (21:38)
[2018-03-07] MEDS: LISINOPRIL 20 MG TAB PO SCH (05:37)
[2018-03-07 06:35] LABS: Glucose,Whole Blood 178 mg/dL (75-99)
[2018-03-07] MEDS ORDERED: cloNIDine HCL 0.1 MG TAB PO STA (07:14)
[2018-03-07 07:41] LABS: Basophils % (A) 0 %; Eosinophils # (A) 0.1 k/uL (0-0.7); Eosinophils % (A) 1 %; HCT 44.8 % (34.0-46.0); HGB 14.1 gm/dL (11.4-16.0); Lymphocytes # (A) 1.4 k/uL (1.0-4.8); Lymphocytes % (A) 14 %; MCH 27.8 pg (25.0-35.0); MCHC 31.5 g/dL (31.0-37.0); MCV 88.3 fL (80.0-100.0); Mean Platelet Volume 6.8; Monocytes # (A) 0.4 k/uL (0-1.0); Monocytes % (A) 4 %; Neutrophils # (A) 8.2 k/uL (1.3-7.7); Neutrophils % (A) 80 %; Platelet Count 216 k/uL (150-450); RBC 5.08 m/uL (3.80-5.40); WBC 10.3 k/uL (3.8-10.6)
[2018-03-07 08:04] LABS: Anion Gap 19 mmol/L; Blood Urea Nitrogen 14 mg/dL (7-17); Carbon Dioxide 19 mmol/L (22-30); Chloride 105 mmol/L (98-107); Glucose 184 mg/dL (74-99); Potassium 3.2 mmol/L (3.5-5.1); Sodium 143 mmol/L (137-145)
[2018-03-07] MEDS: ASPIRIN 325 MG TAB PO SCH (09:09)
[2018-03-07] MEDS: amLODIPine 10 MG TAB PO SCH (09:09)
[2018-03-07] MEDS: SODIUM CHLORIDE 0.9% 1,000 ML IV SCH ×2 (09:09→21:53)
[2018-03-07] MEDS: FLUTICASONE 50MCG/SPRAY NASAL 16GM EA NOSTRIL PRN (10:01)
[2018-03-07] MEDS: cefTRIAXone IN SWFI 1,000 MG/10 ML SYRINGE IVP SCH (10:01)
--- NOTE | 2018-03-07 10:26 | P.PN ---
Subjective Progress Note Date: 03/07/18 Patient reports poor sleep last night. Patient would still slurred speech, reports that her tongue feels heavy, still with left sided hemiparesis. Eyelid ptosis and facial droop. Patient's blood pressure have been improved but are still elevated. No acute events overnight Objective - Vital Signs Vital signs: Vital Signs Temp 98.2 F 03/07/18 08:00 Pulse 83 03/07/18 08:00 Resp 18 03/07/18 08:00 BP 154/92 03/07/18 08:00 Pulse Ox 94 L 03/07/18 08:00 Intake & Output 03/06/18 03/07/18 03/07/18 18:59 06:59 18:59 Intake Total 730 Output Total 900 850 Balance -170 -850 Weight 67.5 kg Intake: Intake, IV Titration 500 Amount Sodium Chloride 0.9% 1, 500 000 ml @ 100 mls/hr IV . Q10H [facility] Rx#:[id number] Oral 230 Output: Urine 900 850 Other: Voiding Method Indwelling Catheter Indwelling Catheter # Voids 0 # Bowel Movements 0 - Exam Constitutional: No acute distress, conversant, pleasant Eyes: Anicteric sclerae, moist conjunctiva, left eye ptosis ENMT: NC/AT,Oropharynx clear, no erythema, exudates Neck:Supple, FROM, no masses, or JVD, No carotid bruits; No thyromegaly Lungs: Clear to auscultation, Clear to percussion, Normal respiratory effort, no accessory muscle use Cardiovascular: Heart regular in rate and rhythm, No murmurs, gallops, or rubs no peripheral edema Abdominal: Soft Nontender, nom distended, no guarding, no rebound or rigidity, Normoactive bowel sounds No hepatomegaly, No splenomegaly, No palpable mass No abdominal wall hernia noted Skin: Normal temperature, tone, texture, turgor, No induration No subcutaneous nodules, No rash, lesions, No ulcers Extremities:No digital cyanosis No clubbing, Pedal pulses intact and symmetrical Radial pulses intact and symmetrical Normal gait and station, No calf tenderness Psychiatric: Alert and oriented to person, place and time, Appropriate affect Intact judgement Neuro: Left-sided hemiparesis, left-sided facial droop, eyelid ptosis. - Labs CBC & Chem 7: 03/07/18 07:08 03/07/18 07:08 Labs: Abnormal Lab Results - Last 24 Hours (Table) 03/05/18 03/06/18 03/06/18 Range/Units 18:10 06:13 11:52 Neutrophils # (1.3-7.7) k/uL Potassium 3.2 L (3.5-5.1) mmol/L Carbon Dioxide 19 L (22-30) mmol/L Creatinine 0.46 L (0.52-1.04) mg/dL Glucose 153 H (74-99) mg/dL POC Glucose (mg/dL) 193 H (75-99) mg/dL Hemoglobin A1c 7.4 H (4.0-6.0) % Triglycerides (<150) mg/dL LDL Cholesterol, Calc (0-99) mg/dL 03/06/18 03/06/18 03/07/18 Range/Units 18:29 20:35 06:32 Neutrophils # (1.3-7.7) k/uL Potassium (3.5-5.1) mmol/L Carbon Dioxide (22-30) mmol/L Creatinine (0.52-1.04) mg/dL Glucose (74-99) mg/dL POC Glucose (mg/dL) 178 H 178 H (75-99) mg/dL Hemoglobin A1c (4.0-6.0) % Triglycerides 166 H (<150) mg/dL LDL Cholesterol, Calc 116 H (0-99) mg/dL 03/07/18 03/07/18 Range/Units 07:08 07:08 Neutrophils # 8.2 H (1.3-7.7) k/uL Potassium 3.2 L (3.5-5.1) mmol/L Carbon Dioxide 19 L (22-30) mmol/L Creatinine 0.45 L (0.52-1.04) mg/dL Glucose 184 H (74-99) mg/dL POC Glucose (mg/dL) (75-99) mg/dL Hemoglobin A1c (4.0-6.0) % Triglycerides (<150) mg/dL LDL Cholesterol, Calc (0-99) mg/dL Microbiology - Last 24 Hours (Table) 03/05/18 18:10 Blood Culture - Preliminary Blood No Growth after 24 hours 03/05/18 18:21 Blood Culture - Preliminary Blood No Growth after 24 hours 03/05/18 15:20 Urine Culture - Preliminary Urine,Clean Catch Assessment and Plan (1) Brainstem stroke Narrative/Plan: MRI confirming subacute brainstem stroke with resultant left hemiparesis facial droop, slurred speech and eyelid ptosis * Continue with daily aspirin 325 mg by mouth daily * Neurology Dr. Blake has been consulted for further recommendations * Patient passed bedside swallow was advanced to a diabetic diet * Echocardiogram showing normal LV function with EF of 55-60%with moderately dilated left atrium Current Visit: Yes Status: Acute Code(s): I63.9 - CEREBRAL INFARCTION, UNSPECIFIED SNOMED Code(s): 681883375 (2) Hypertensive emergency Narrative/Plan: * Target blood pressure range systolically 150s to 160s, continue to allow permissive hypertension * We'll give her clonidine 0.1 mg 1 and continue home dose of lisinopril 40 mg by mouth daily and Norvasc 10 mg by mouth daily we will add chlorthalidone to regimen * Continue to monitor closely * Current Visit: Yes Status: Acute Code(s): I16.1 - HYPERTENSIVE EMERGENCY SNOMED Code(s): 476825168621859 (3) Hyperlipidemia LDL goal <70 Narrative/Plan: * LDL 116 * Initiated on Lipitor this hospitalization will continue with 20 mg daily at bedtime Current Visit: Yes Status: Acute Code(s): E78.5 - HYPERLIPIDEMIA, UNSPECIFIED SNOMED Code(s): 15246373 (4) Hypokalemia Narrative/Plan: * Replace and recheck Current Visit: Yes Status: Acute Code(s): E87.6 - HYPOKALEMIA SNOMED Code( s): 59145449 (5) Type 2 diabetes mellitus with hyperglycemia Narrative/Plan: * Continue with correctional scale coverage, patient nothing by mouth we'll advance to diabetic diet * A1c is 7.4 * Continue to monitor blood sugars Current Visit: Yes Status: Acute Code(s): E11.65 - TYPE 2 DIABETES MELLITUS WITH HYPERGLYCEMIA SNOMED Code(s): 508358519250887 (6) Sepsis Narrative/Plan: * Secondary to UTI urine cultures ordered * Patient afebrile, CBC pending * Continue empiric treatment with Rocephin Current Visit: Yes Status: Resolved Code(s): A41.9 - SEPSIS, UNSPECIFIED ORGANISM SNOMED Code(s): 89420637 (7) UTI (urinary tract infection) Narrative/Plan: * Continue Rocephin and urine cultures are pending Current Visit: Yes Status: Acute Code(s): N39.0 - URINARY TRACT INFECTION, SITE NOT SPECIFIED SNOMED Code(s): 04508961 (8) Recurrent falls Current Visit: Yes Status: Acute Code(s): R29.6 - REPEATED FALLS SNOMED Code(s): 820707995 (9) Left hemiparesis Narrative/Plan: * Secondary to problem #1 Current Visit: Yes Status: Acute Code(s): G81.94 - HEMIPLEGIA, UNSPECIFIED AFFECTING LEFT NONDOMINANT SIDE SNOMED Code(s): 294953102 Plan: Initiate Lovenox for DVT prophylaxis
[2018-03-07] MEDS ORDERED: POTASSIUM CHLORIDE ER 20 MEQ TAB.ER PO ONE (11:00)
[2018-03-07 12:06] LABS: Glucose,Whole Blood 171 mg/dL (75-99)
[2018-03-07] MEDS: ENOXAPARIN 40 MG/0.4 ML SYRINGE SQ SCH (12:33)
[2018-03-07] MEDS: CHLORTHALIDONE 25 MG TAB PO SCH (12:33)
[2018-03-07 17:06] LABS: Glucose,Whole Blood 168 mg/dL (75-99)
--- NOTE | 2018-03-07 19:25 | P.PN ---
Subjective Progress Note Date: 03/07/18 Patient is a pleasant 62-year-old female who is being followed by the neurology service for CVA. Patient came in with left-sided hemiparesis and left facial droop. Left-sided weakness continues. Patient states she slept a few hours last night and therefore feels somewhat better. No improvement of left hemiparesis although. Patient had MRI of the brain which showed an acute brainstem infarct. CTA did not show any evidence of embolus or aneurysm. At the time of my evaluation, patient's resting comfortably in bed and appears to be in no acute distress. Objective - Vital Signs Vital signs: Vital Signs Temp 97.1 F L 03/07/18 15:34 Pulse 78 03/07/18 15:34 Resp 18 03/07/18 15:34 BP 152/76 03/07/18 15:34 Pulse Ox 94 L 03/07/18 15:34 Intake & Output 03/07/18 03/07/18 03/08/18 06:59 18:59 06:59 Intake Total 2130 Output Total 850 Balance -850 2130 Weight 67.5 kg 67.5 kg Intake: Intake, IV Titration 1600 Amount Sodium Chloride 0.9% 1, 1600 000 ml @ 100 mls/hr IV . Q10H [facility] Rx#:[id number] Oral 530 Output: Urine 850 Other: Voiding Method Indwelling Catheter Indwelling Catheter # Voids 0 0 # Bowel Movements 0 - Exam PHYSICAL EXAM: GENERAL APPEARANCE: Patient is a well-developed, female who appears to be in no acute distress. HEENT: Normocephalic, atraumatic, left facial droop noted, left ptosis Neck is supple with no masses felt. CARDIOVASCULAR: Regular rate and rhythm. ABDOMEN: Nontender, nondistended. EXTREMITIES: Show no edema or clubbing. NEUROLOGICAL EXAM: Patient is awake, alert, and oriented 3. Speech is mildly dysarthric due to left facial droop. Language is normal. Strength is 5/5 in right upper and lower extremity. Strength is 0/5 in left upper and lower extremity. Left facial droop noted on cranial nerve testing. Sensory exam to light touch is normal in all 4 extremities. No tremors or seizure-like activity noted. - Labs CBC & Chem 7: 03/07/18 07:08 03/07/18 07:08 Labs: Abnormal Lab Results - Last 24 Hours (Table) 03/05/18 03/06/18 03/07/18 Range/Units 18:10 20:35 06:32 Neutrophils # (1.3-7.7) k/uL Potassium (3.5-5.1) mmol/L Carbon Dioxide (22-30) mmol/L Creatinine (0.52-1.04) mg/dL Glucose (74-99) mg/dL POC Glucose (mg/dL) 178 H (75-99) mg/dL Hemoglobin A1c 7.4 H (4.0-6.0) % Triglycerides 166 H (<150) mg/dL LDL Cholesterol, Calc 116 H (0-99) mg/dL 03/07/18 03/07/18 03/07/18 Range/Units 07:08 07:08 12:01 Neutrophils # 8.2 H (1.3-7.7) k/uL Potassium 3.2 L (3.5-5.1) mmol/L Carbon Dioxide 19 L (22-30) mmol/L Creatinine 0.45 L (0.52-1.04) mg/dL Glucose 184 H (74-99) mg/dL POC Glucose (mg/dL) 171 H (75-99) mg/dL Hemoglobin A1c (4.0-6.0) % Triglycerides (<150) mg/dL LDL Cholesterol, Calc (0-99) mg/dL 03/07/18 Range/Units 17:01 Neutrophils # (1.3-7.7) k/uL Potassium (3.5-5.1) mmol/L Carbon Dioxide (22-30) mmol/L Creatinine (0.52-1.04) mg/dL Glucose (74-99) mg/dL POC Glucose (mg/dL) 168 H (75-99) mg/dL Hemoglobin A1c (4.0-6.0) % Triglycerides (<150) mg/dL LDL Cholesterol, Calc (0-99) mg/dL Microbiology - Last 24 Hours (Table) 03/05/18 15:20 Urine Culture - Final Urine,Clean Catch Strep agalactiae - (group b) 03/05/18 18:10 Blood Culture - Preliminary Blood No Growth after 24 hours 03/05/18 18:21 Blood Culture - Preliminary Blood No Growth after 24 hours Assessment and Plan (1) Cerebrovascular accident Current Visit: Yes Status: Acute Code(s): I63.9 - CEREBRAL INFARCTION, UNSPECIFIED SNOMED Code(s): 464888348 (2) Hypertensive emergency Current Visit: Yes Status: Acute Code(s): I16.1 - HYPERTENSIVE EMERGENCY SNOMED Code(s): 579797223944898 (3) Left hemiparesis Current Visit: Yes Status: Acute Code(s): G81.94 - HEMIPLEGIA, UNSPECIFIED AFFECTING LEFT NONDOMINANT SIDE SNOMED Code(s): 817054110 (4) Type 2 diabetes mellitus with hyperglycemia Current Visit: Yes Status: Acute Code(s): E11.65 - TYPE 2 DIABETES MELLITUS WITH HYPERGLYCEMIA SNOMED Code(s): 590734596646231 (5) UTI (urinary tract infection) Current Visit: Yes Status: Acute Code(s): N39.0 - URINARY TRACT INFECTION, SITE NOT SPECIFIED SNOMED Code(s): 34228134 Plan: Recommendation: MRI of the brain shows patient had an acute brainstem infarct. No evidence of hemorrhage. CTA did not show evidence of any stenosis or aneurysmal change. Patient continues to have left hemiparesis. Continue Plavix 75 mg by mouth daily. EEG was ordered. Her fasting lipid panel was elevated and I will increase Lipitor to 40 mg daily at bedtime. Serum homocysteine level is pending. I recommend PT OT and speech to evaluate and treat. Continue neurological checks. I will continue to follow with you. Further recommendations to follow. I performed an examination of the patient and discussed the management with the [employer]. I have reviewed the [employer] WORK[employer] notes and agree with the findings and plan of care.
[2018-03-07] MEDS: INSULIN DETEMIR 100 UNIT/ML 10 ML VIAL SQ SCH (21:53)
[2018-03-07] MEDS: CLOPIDOGREL 75 MG TAB PO SCH (21:53)
[2018-03-07] MEDS: ZOLPIDEM 5 MG TAB PO SCH (21:54)
[2018-03-07] MEDS: NICOTINE 14MG/24HR PATCH TRANSDERM SCH (21:54)
[2018-03-07] MEDS: ATORVASTATIN 40 MG TAB PO SCH (21:55)
[2018-03-08 00:01] LABS: Glucose,Whole Blood 219 mg/dL (75-99)
[2018-03-08] MEDS: SODIUM CHLORIDE 0.9% 1,000 ML IV SCH ×2 (05:56→16:12)
[2018-03-08 06:00] LABS: Glucose,Whole Blood 193 mg/dL (75-99)
[2018-03-08] MEDS: INSULIN ASPART 100 UNIT/ML 1 ML 10 ML VIAL SQ PRN ×2 (06:52→18:09)
--- NOTE | 2018-03-08 08:55 | P.PN ---
Subjective Progress Note Date: 03/08/18 Patient reports poor sleep last night and continues to perseverate on reportedly her sleep was despite my redirection that she should be more focused on, ongoing plan of care in regards to rehab. Patient would still slurred speech, reports that her tongue feels heavy, still with left sided hemiparesis. Eyelid ptosis and facial droop. Patient's blood pressure have been improved but are still elevated. No acute events overnight Objective - Vital Signs Vital signs: Vital Signs Temp 97.0 F L 03/08/18 08:00 Pulse 92 03/08/18 08:00 Resp 16 03/08/18 08:00 BP 176/84 03/08/18 08:00 Pulse Ox 95 03/08/18 08:00 Intake & Output 03/07/18 03/08/18 03/08/18 18:59 06:59 18:59 Intake Total 2130 Balance 2130 Weight 67.5 kg Intake: Intake, IV Titration 1600 Amount Sodium Chloride 0.9% 1, 1600 000 ml @ 100 mls/hr IV . Q10H [facility] Rx#:[id number] Oral 530 Other: Voiding Method Indwelling Catheter Incontinent Incontinent # Voids 0 2 # Bowel Movements 0 - Exam Constitutional: No acute distress, conversant, pleasant Eyes: Anicteric sclerae, moist conjunctiva, left eye ptosis ENMT: NC/AT,Oropharynx clear, no erythema, exudates Neck:Supple, FROM, no masses, or JVD, No carotid bruits; No thyromegaly Lungs: Clear to auscultation, Clear to percussion, Normal respiratory effort, no accessory muscle use Cardiovascular: Heart regular in rate and rhythm, No murmurs, gallops, or rubs no peripheral edema Abdominal: Soft Nontender, nom distended, no guarding, no rebound or rigidity, Normoactive bowel sounds No hepatomegaly, No splenomegaly, No palpable mass No abdominal wall hernia noted Skin: Normal temperature, tone, texture, turgor, No induration No subcutaneous nodules, No rash, lesions, No ulcers Extremities:No digital cyanosis No clubbing, Pedal pulses intact and symmetrical Radial pulses intact and symmetrical Normal gait and station, No calf tenderness Psychiatric: Alert and oriented to person, place and time, Appropriate affect Intact judgement Neuro: Left-sided hemiparesis, left-sided facial droop, eyelid ptosis. - Labs CBC & Chem 7: 03/07/18 07:08 03/07/18 07:08 Labs: Abnormal Lab Results - Last 24 Hours (Table) 03/07/18 03/07/18 03/07/18 Range/Units 12:01 17:01 23:59 POC Glucose (mg/dL) 171 H 168 H 219 H (75-99) mg/dL 03/08/18 Range/Units 05:55 POC Glucose (mg/dL) 193 H (75-99) mg/dL Microbiology - Last 24 Hours (Table) 03/05/18 18:10 Blood Culture - Preliminary Blood No Growth after 48 hours 03/05/18 18:21 Blood Culture - Preliminary Blood No Growth after 48 hours 03/05/18 15:20 Urine Culture - Final Urine,Clean Catch Strep agalactiae - (group b) Assessment and Plan (1) Brainstem stroke Narrative/Plan: MRI confirming subacute brainstem stroke with resultant left hemiparesis facial droop, slurred speech and eyelid ptosis * Continue with daily aspirin 325 mg by mouth daily * Neurology Dr. Blake has been consulted for further recommendations * Patient passed bedside swallow was advanced to a diabetic diet * Echocardiogram showing normal LV function with EF of 55-60%with moderately dilated left atrium * Consult placed for rehab Current Visit: Yes Status: Acute Code(s): I63.9 - CEREBRAL INFARCTION, UNSPECIFIED SNOMED Code(s): 324198703 (2) Hypertensive emergency Narrative/Plan: * Blood pressure still elevated today Target blood pressure range systolically 150s to 160s, continue to allow permissive hypertension * Add metoprolol 25 mg by mouth twice a day to regimen continue home dose of lisinopril 40 mg by mouth daily and Norvasc 10 mg by mouth daily , chlorthalidone 25 mg by mouth daily * Continue to monitor closely Current Visit: Yes Status: Acute Code(s): I16.1 - HYPERTENSIVE EMERGENCY SNOMED Code(s): 561098441767739 (3) Hyperlipidemia LDL goal <70 Narrative/Plan: * LDL 116 * Initiated on Lipitor this hospitalization will continue with 20 mg daily at bedtime Current Visit: Yes Status: Acute Code(s): E78.5 - HYPERLIPIDEMIA, UNSPECIFIED SNOMED Code(s): 61020343 (4) Hypokalemia Narrative/Plan: * Replace and recheck Current Visit: Yes Status: Acute Code(s): E87.6 - HYPOKALEMIA SNOMED Code( s): 30198225 (5) Type 2 diabetes mellitus with hyperglycemia Narrative/Plan: * Continue with correctional scale coverage, patient nothing by mouth we'll advance to diabetic diet * A1c is 7.4 * Continue to monitor blood sugars Current Visit: Yes Status: Acute Code(s): E11.65 - TYPE 2 DIABETES MELLITUS WITH HYPERGLYCEMIA SNOMED Code(s): 787874046930360 (6) Sepsis Narrative/Plan: * Secondary to UTI urine cultures ordered * Patient afebrile, CBC pending * Continue empiric treatment with Rocephin Current Visit: Yes Status: Resolved Code(s): A41.9 - SEPSIS, UNSPECIFIED ORGANISM SNOMED Code(s): 01766179 (7) UTI (urinary tract infection) Narrative/Plan: * Continue Rocephin and urine cultures growing group B strep agalactiae Current Visit: Yes Status: Acute Code(s): N39.0 - URINARY TRACT INFECTION, SITE NOT SPECIFIED SNOMED Code(s): 08028512 (8) Recurrent falls Current Visit: Yes Status: Acute Code(s): R29.6 - REPEATED FALLS SNOMED Code(s): 952835501 (9) Left hemiparesis Current Visit: Yes Status: Acute Code(s): G81.94 - HEMIPLEGIA, UNSPECIFIED AFFECTING LEFT NONDOMINANT SIDE SNOMED Code(s): 110553392 Plan: Patient needs improved blood pressure control antihypertensive regimen adjusted , patient will continue to remain on selective until her blood pressure is improved and a rehab consult placed.
[2018-03-08] MEDS: LISINOPRIL 20 MG TAB PO SCH (09:43)
[2018-03-08] MEDS: CHLORTHALIDONE 25 MG TAB PO SCH (09:43)
[2018-03-08] MEDS: amLODIPine 10 MG TAB PO SCH (09:43)
[2018-03-08] MEDS: CLOPIDOGREL 75 MG TAB PO SCH (09:43)
[2018-03-08] MEDS: ENOXAPARIN 40 MG/0.4 ML SYRINGE SQ SCH (09:43)
[2018-03-08] MEDS: METOPROLOL TARTRATE 25 MG TAB PO SCH ×2 (09:44→21:29)
[2018-03-08] MEDS: cefTRIAXone IN SWFI 1,000 MG/10 ML SYRINGE IVP SCH (09:44)
[2018-03-08 09:45] LABS: Anion Gap 17 mmol/L; Blood Urea Nitrogen 19 mg/dL (7-17); Calcium 9.6 mg/dL (8.4-10.2); Carbon Dioxide 22 mmol/L (22-30); Chloride 103 mmol/L (98-107); Glucose 273 mg/dL (74-99); Potassium 3.5 mmol/L (3.5-5.1); Sodium 142 mmol/L (137-145)
--- NOTE | 2018-03-08 10:42 | P.CONS ---
History of Present Illness - Chief Complaint Gait disturbance, left hemiplegia - History of Present Illness I had the opportunity to see patient for inpatient rehab consultation with regard to gait disturbance. She was admitted to [facility] March 05 acute onset left-sided weakness. Seen by Dr. Blake who reports head CT and CTA negative. Chest x-ray with cardiomegaly. Brain MRI demonstrated subacute brainstem infarct as well as chronic ischemic change. PT evaluated patient. OT and speech prescribed. Previous functional history as elicited from patient: 62-year-old right-handed white female who is lives in one floor home with sister in mother. Retired. They share the cooking and laundry. Laundry in basement. Patient independent with standing shower and gait with out device. Does not drive. Smokes a half pack per day and does not drink alcohol. Family history father with strokes and [place]. Review of Systems Review of systems: ENT: Denies sneezes or discharge. Eyes: Denies discharge or photophobia. Cardiac: Denies chest pain or palpitation. Pulmonary: Denies cough or shortness of breath. Breast: Denies discharge or lumps. Gastrointestinal: Denies nausea, emesis, constipation, diarrhea. Genitourinary: Denies discharge or frequency. Musculoskeletal: Denies muscle or bone aches. Neurologic: Left-sided weakness and numbness. Endocrine: Denies shakes or sweats. Oncology: Denies cancers. Dermatologic: Denies rash, itching, pruritus. ALLERGY/immunology: Denies sneezes, rashes. Past Medical History Past Medical History: CVA/TIA, Diabetes Mellitus, Hypertension Additional Past Medical History / Comment(s): cva 2005 History of Any Multi-Drug Resistant Organisms: None Reported Past Surgical History: Section, Orthopedic Surgery Additional Past Surgical History / Comment(s): left knee sx Past Psychological History: Depression Smoking Status: Current every day smoker Past Alcohol Use History: Occasional Past Drug Use History: None Reported Medications and Allergies Home Medications Medication Instructions Recorded Confirmed Type Insulin Glargine,Hum.rec.anlog 33 unit SQ HS 10/29/17 03/05/18 History [Lantus Solostar] Lisinopril 40 mg PO DAILY 10/29/17 03/05/18 History Sertraline HCl [Zoloft] 50 mg PO DAILY 10/29/17 03/05/18 History glipiZIDE [Glucotrol] 10 mg PO AC-BID 10/29/17 03/05/18 History metFORMIN HCL 1,000 mg PO BID 10/29/17 03/05/18 History traMADol HCL [Ultram] 50 mg PO Q6HR PRN 10/29/17 03/05/18 History Aspirin EC [Ecotrin Low Dose] 81 mg PO DAILY 03/05/18 03/05/18 History Allergies Allergy/AdvReac Type Severity Reaction Status Date / Time Tetracyclines Allergy Unknown Verified 03/05/18 14:52 Physical Exam Vitals: Vital Signs Temp Pulse Resp BP Pulse Ox 03/08/18 08:00 97.0 F L 92 16 176/84 95 03/08/18 04:00 97.8 F 80 18 175/86 95 03/08/18 00:00 98.7 F 87 18 157/76 97 03/07/18 20:00 97.7 F 92 18 158/74 95 03/07/18 15:34 97.1 F L 78 18 152/76 94 L 03/07/18 12:00 97 F L 80 18 161/80 96 Intake and Output 03/07/18 03/08/18 03/08/18 22:59 06:59 14:59 Intake Total 1830 Balance 1830 Intake: Intake, IV Titration 1600 Amount Sodium Chloride 0.9% 1, 1600 000 ml @ 100 mls/hr IV . Q10H [facility] Rx#:[id number] Oral 230 Other: Voiding Method Incontinent Incontinent Incontinent # Voids 1 2 # Bowel Movements 0 0 Skin: Good color, texture, turgor. General: Medium build and comfortable appearance. Head: Normocephalic, atraumatic. Eyes: Symmetric. Pupils equal round. Ears: Symmetric. Hearing within normal limits. Mouth: Clear. Neck: Supple. Carotid without bruit. Cardiac: Regular rate and rhythm. Lungs: Clear anteriorly and posteriorly. Abdomen: Soft active nontender. Extremities: Normal tone. Neurological: Mental status: Alert, cooperative, pleasant. Cranial nerves: Symmetric facial tone and trapezius. Motor: Normal strength and isolation right arm and leg. Left arm and leg poor and generally in flexion synergy. Sensation: Intact depressed left side. DTRs: Symmetric and equal throughout. Mobility: Sits with moderate assistance. Results CBC & Chem 7: 03/07/18 07:08 03/08/18 09:16 Labs: Abnormal Lab Results - Last 24 Hours (Table) 03/07/18 03/07/18 03/07/18 Range/Units 12:01 17:01 23:59 BUN (7-17) mg/dL Creatinine (0.52-1.04) mg/dL Glucose (74-99) mg/dL POC Glucose (mg/dL) 171 H 168 H 219 H (75-99) mg/dL 03/08/18 03/08/18 Range/Units 05:55 09:16 BUN 19 H (7-17) mg/dL Creatinine 0.50 L (0.52-1.04) mg/dL Glucose 273 H (74-99) mg/dL POC Glucose (mg/dL) 193 H (75-99) mg/dL Microbiology - Last 24 Hours (Table) 03/05/18 18:10 Blood Culture - Preliminary Blood No Growth after 48 hours 03/05/18 18:21 Blood Culture - Preliminary Blood No Growth after 48 hours 03/05/18 15:20 Urine Culture - Final Urine,Clean Catch Strep agalactiae - (group b) Chest x-ray: report reviewed (Cardiomegaly.) CT Scan - head: report reviewed (Due to. CTA negative.) MRI - head: report reviewed (Brainstem infarct. Chronic ischemic change.) Assessment and Plan (1) Brainstem stroke Current Visit: Yes Status: Acute Code(s): I63.9 - CEREBRAL INFARCTION, UNSPECIFIED SNOMED Code(s): 880986404 Plan: Impression: 1. Gait disturbance. 2. Brainstem stroke result in left hemiparesthesias. 3. Diabetes. 4. Hypertension. Comments and plan: At this time PT, OT, MEDICAL CLAIMS REPRESENTATIVE ordered. Follow therapies with yourself. 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
--- NOTE | 2018-03-08 15:48 | EEG ---
ELECTROENCEPHALOGRAM REPORT DATE OF SERVICE: 03/08/2018. REASON FOR TESTING: Stroke. DESCRIPTION OF THE PROCEDURE: This EEG was performed using a 21 channel digital electroencephalograph, following international 10-20 system. DESCRIPTION OF THE RECORDING: From the beginning of the tracing, with patient's eyes closed, the background rhythm was mostly consisting of 8 Hz alpha frequency in the posterior occipital leads. No obvious asymmetry is seen. Photic stimulation was performed with a minimal driving response seen. No pathological waves were elicited. Frequent muscle and movement artifacts are seen. Hyperventilation was not performed. The patient does reach stage II of sleep during the tracing and occasional sleep spindles are seen. No epileptiform discharges were seen throughout the tracing. Her EKG lead showed a regular rate and rhythm. INTERPRETATION: This asleep and awake EEG can be considered within normal limits. There was no asymmetry seen. No epileptiform discharges were noticed. The absence of epileptiform discharges does not rule out the diagnosis of epilepsy, therefore clinical correlation is recommended. MMCHARLY / BROOK: [id number] /
[2018-03-08] MEDS: FLUTICASONE 50MCG/SPRAY NASAL 16GM EA NOSTRIL PRN (15:56)
--- NOTE | 2018-03-08 16:38 | P.PN ---
Subjective Progress Note Date: 03/08/18 Patient is a pleasant 62-year-old female who is being followed by the neurology service for CVA. Patient came in with left-sided hemiparesis and left facial droop. Left-sided weakness continues. Patient states she slept a few hours last night and therefore feels somewhat better. No improvement of left hemiparesis although. Patient had MRI of the brain which showed an acute brainstem infarct. CTA did not show any evidence of embolus or aneurysm. At the time of my evaluation, patient's resting comfortably in bed and appears to be in no acute distress. 03/08/2018 Patient is a pleasant 62-year-old female who is being followed by the neurology service for CVA. Patient continues to have left hemiparesis and left facial droop. Patient has left ptosis. Patient had CTA which did not show any evidence of embolus or aneurysm. Patient did have MRI of the brain which did show an acute brainstem infarct. EEG was done and was normal. Patient is eating and swallowing without difficulty. At the time of my evaluation, patient is resting comfortably in bed and appears to be in no acute distress. Objective - Vital Signs Vital signs: Vital Signs Temp 97.0 F L 03/08/18 16:00 Pulse 80 03/08/18 16:00 Resp 16 03/08/18 16:00 BP 165/77 03/08/18 16:00 Pulse Ox 93 L 03/08/18 16:00 Intake & Output 03/07/18 03/08/18 03/08/18 18:59 06:59 18:59 Intake Total 2130 356 Balance 2130 356 Weight 67.5 kg Intake: Intake, IV Titration 1600 Amount Sodium Chloride 0.9% 1, 1600 000 ml @ 100 mls/hr IV . Q10H [facility] Rx#:[id number] Oral 530 356 Other: Voiding Method Indwelling Catheter Incontinent Incontinent # Voids 0 2 2 # Bowel Movements 0 0 - Exam PHYSICAL EXAM: GENERAL APPEARANCE: Patient is a well-developed, female who appears to be in no acute distress. HEENT: Normocephalic, atraumatic, left facial droop noted, left ptosis Neck is supple with no masses felt. CARDIOVASCULAR: Regular rate and rhythm. ABDOMEN: Nontender, nondistended. EXTREMITIES: Show no edema or clubbing. NEUROLOGICAL EXAM: Patient is awake, alert, and oriented 3. Speech is mildly dysarthric due to left facial droop. Language is normal. Strength is 5/5 in right upper and lower extremity. Strength is 0/5 in left upper and lower extremity. Left facial droop mildly improved on cranial nerve testing. Patient does appear to have a new right facial droop as well. Sensory exam to light touch is normal in all 4 extremities. No tremors or seizure-like activity noted. - Labs CBC & Chem 7: 03/07/18 07:08 03/08/18 09:16 Labs: Abnormal Lab Results - Last 24 Hours (Table) 03/07/18 03/07/18 03/08/18 Range/Units 17:01 23:59 05:55 BUN (7-17) mg/dL Creatinine (0.52-1.04) mg/dL Glucose (74-99) mg/dL POC Glucose (mg/dL) 168 H 219 H 193 H (75-99) mg/dL 03/08/18 Range/Units 09:16 BUN 19 H (7-17) mg/dL Creatinine 0.50 L (0.52-1.04) mg/dL Glucose 273 H (74-99) mg/dL POC Glucose (mg/dL) (75-99) mg/dL Microbiology - Last 24 Hours (Table) 03/05/18 18:10 Blood Culture - Preliminary Blood No Growth after 48 hours 03/05/18 18:21 Blood Culture - Preliminary Blood No Growth after 48 hours 03/05/18 15:20 Urine Culture - Final Urine,Clean Catch Strep agalactiae - (group b) Assessment and Plan (1) Cerebrovascular accident Current Visit: Yes Status: Acute Code(s): I63.9 - CEREBRAL INFARCTION, UNSPECIFIED SNOMED Code(s): 753759670 (2) Hypertensive emergency Current Visit: Yes Status: Acute Code(s): I16.1 - HYPERTENSIVE EMERGENCY SNOMED Code(s): 970826039117741 (3) Left hemiparesis Current Visit: Yes Status: Acute Code(s): G81.94 - HEMIPLEGIA, UNSPECIFIED AFFECTING LEFT NONDOMINANT SIDE SNOMED Code(s): 343879705 (4) Type 2 diabetes mellitus with hyperglycemia Current Visit: Yes Status: Acute Code(s): E11.65 - TYPE 2 DIABETES MELLITUS WITH HYPERGLYCEMIA SNOMED Code(s): 442940792111896 (5) UTI (urinary tract infection) Current Visit: Yes Status: Acute Code(s): N39.0 - URINARY TRACT INFECTION, SITE NOT SPECIFIED SNOMED Code(s): 30914164 Plan: Recommendation: MRI of the brain shows patient had an acute brainstem infarct. No evidence of hemorrhage. CTA did not show evidence of any stenosis or aneurysmal change. Patient continues to have left hemiparesis. Continue Plavix 75 mg by mouth daily. EEG was normal. Her fasting lipid panel was elevated and she will continue Lipitor 40 mg daily at bedtime. Serum homocysteine level is normal. I recommend PT OT and speech to evaluate and treat. Continue neurological checks. Patient was evaluated for possible inpatient rehab. I do feel patient needs inpatient rehab following discharge. I will continue to follow with you on an as-needed basis. Feel free to call with any questions or concerns. I performed an examination of the patient and discussed the management with the UTILITIES GROUND WORKER. I have reviewed the UTILITIES GROUND WORKER notes and agree with the findings and plan of care.
[2018-03-08 16:59] LABS: Glucose,Whole Blood 258 mg/dL (75-99)
[2018-03-08 20:49] LABS: Glucose,Whole Blood 265 mg/dL (75-99)
[2018-03-08] MEDS ORDERED: ACETAMINOPHEN TAB 325 MG TAB PO PRN (21:02)
[2018-03-08] MEDS: ATORVASTATIN 40 MG TAB PO SCH (21:29)
[2018-03-08] MEDS: ZOLPIDEM 5 MG TAB PO SCH (21:32)
[2018-03-08] MEDS: INSULIN DETEMIR 100 UNIT/ML 10 ML VIAL SQ SCH (21:32)
[2018-03-09] MEDS: SODIUM CHLORIDE 0.9% 1,000 ML IV SCH ×2 (02:12→11:58)
[2018-03-09 05:57] LABS: Glucose,Whole Blood 247 mg/dL (75-99)
[2018-03-09] MEDS ORDERED: METOPROLOL TARTRATE 50 MG TAB PO STA (07:30)
[2018-03-09] MEDS: NICOTINE 14MG/24HR PATCH TRANSDERM SCH (07:39)
[2018-03-09] MEDS: cefTRIAXone IN SWFI 1,000 MG/10 ML SYRINGE IVP SCH (09:26)
[2018-03-09] MEDS: amLODIPine 10 MG TAB PO SCH (09:26)
[2018-03-09] MEDS: CLOPIDOGREL 75 MG TAB PO SCH (09:27)
[2018-03-09] MEDS: CHLORTHALIDONE 25 MG TAB PO SCH (09:27)
[2018-03-09] MEDS: ENOXAPARIN 40 MG/0.4 ML SYRINGE SQ SCH (09:27)
[2018-03-09] MEDS: LISINOPRIL 20 MG TAB PO SCH (09:27)
[2018-03-09] MEDS ORDERED: METOPROLOL TARTRATE 25 MG TAB PO STA (09:29)
[2018-03-09 11:53] LABS: Glucose,Whole Blood 250 mg/dL (75-99)
[2018-03-09] MEDS ORDERED: hydrALAZINE HCL 25 MG TAB PO PRN (14:56)
--- NOTE | 2018-03-09 15:33 | P.PN ---
Subjective Progress Note Date: 03/09/18 Patient reports that her sleep last night she is eating well, still has left- sided hemiparesis with left Eyelid ptosis and facial droop. Patient's blood pressure have been improved but are still elevated. No acute events overnight Objective - Vital Signs Vital signs: Vital Signs Temp 97.4 F L 03/09/18 15:10 Pulse 74 03/09/18 15:10 Resp 17 03/09/18 15:10 BP 146/84 03/09/18 15:10 Pulse Ox 98 03/09/18 15:10 Intake & Output 03/08/18 03/09/18 03/09/18 18:59 06:59 18:59 Intake Total 596 180 Balance 596 180 Weight 120 kg Intake: Oral 596 180 Other: Voiding Method Incontinent Incontinent Incontinent # Voids 2 1 # Bowel Movements 1 - Exam Constitutional: No acute distress, conversant, pleasant Eyes: Anicteric sclerae, moist conjunctiva, left eye ptosis ENMT: NC/AT,Oropharynx clear, no erythema, exudates Neck:Supple, FROM, no masses, or JVD, No carotid bruits; No thyromegaly Lungs: Clear to auscultation, Clear to percussion, Normal respiratory effort, no accessory muscle use Cardiovascular: Heart regular in rate and rhythm, No murmurs, gallops, or rubs no peripheral edema Abdominal: Soft Nontender, nom distended, no guarding, no rebound or rigidity, Normoactive bowel sounds No hepatomegaly, No splenomegaly, No palpable mass No abdominal wall hernia noted Skin: Normal temperature, tone, texture, turgor, No induration No subcutaneous nodules, No rash, lesions, No ulcers Extremities:No digital cyanosis No clubbing, Pedal pulses intact and symmetrical Radial pulses intact and symmetrical Normal gait and station, No calf tenderness Psychiatric: Alert and oriented to person, place and time, Appropriate affect Intact judgement Neuro: Left-sided hemiparesis, left-sided facial droop, eyelid ptosis. - Labs CBC & Chem 7: 03/07/18 07:08 03/08/18 09:16 Labs: Abnormal Lab Results - Last 24 Hours (Table) 03/08/18 03/08/18 03/09/18 Range/Units 16:57 20:47 05:53 POC Glucose (mg/dL) 258 H 265 H 247 H (75-99) mg/dL 03/09/18 Range/Units 11:48 POC Glucose (mg/dL) 250 H (75-99) mg/dL Microbiology - Last 24 Hours (Table) 03/05/18 18:10 Blood Culture - Preliminary Blood No Growth after 72 hours 03/05/18 18:21 Blood Culture - Preliminary Blood No Growth after 72 hours Assessment and Plan (1) Hypertensive emergency Narrative/Plan: * Blood pressure still elevated today Target blood pressure range systolically 150s to 160s, continue to allow permissive hypertension * Increase metoprolol to 50 mg by mouth twice a day to regimen continue home dose of lisinopril 40 mg by mouth daily and Norvasc 10 mg by mouth daily , chlorthalidone 25 mg by mouth daily * We'll add hydralazine for when necessary SBP greater than 160 * Continue to monitor closely Current Visit: Yes Status: Acute Code(s): I16.1 - HYPERTENSIVE EMERGENCY SNOMED Code(s): 920434850632009 (2) Brainstem stroke Narrative/Plan: MRI confirming subacute brainstem stroke with resultant left hemiparesis facial droop, slurred speech and eyelid ptosis * Continue with daily aspirin 325 mg by mouth daily * Neurology Dr. Blake has been consulted for further recommendations * Patient passed bedside swallow was advanced to a diabetic diet * Echocardiogram showing normal LV function with EF of 55-60%with moderately dilated left atrium * Consult placed for rehab Current Visit: Yes Status: Acute Code(s): I63.9 - CEREBRAL INFARCTION, UNSPECIFIED SNOMED Code(s): 265053895 (3) Hyperlipidemia LDL goal <70 Narrative/Plan: * LDL 116 * Initiated on Lipitor this hospitalization will continue with 20 mg daily at bedtime Current Visit: Yes Status: Acute Code(s): E78.5 - HYPERLIPIDEMIA, UNSPECIFIED SNOMED Code(s): 73978259 (4) Hypokalemia Narrative/Plan: * Replace and recheck Current Visit: Yes Status: Acute Code(s): E87.6 - HYPOKALEMIA SNOMED Code( s): 53872772 (5) Type 2 diabetes mellitus with hyperglycemia Narrative/Plan: * Continue with correctional scale coverage, patient nothing by mouth we'll advance to diabetic diet * A1c is 7.4 * Continue to monitor blood sugars Current Visit: Yes Status: Acute Code(s): E11.65 - TYPE 2 DIABETES MELLITUS WITH HYPERGLYCEMIA SNOMED Code(s): 331835049007640 (6) Sepsis Narrative/Plan: * Secondary to UTI urine cultures ordered * Patient afebrile, CBC pending * Continue empiric treatment with Rocephin Current Visit: Yes Status: Resolved Code(s): A41.9 - SEPSIS, UNSPECIFIED ORGANISM SNOMED Code(s): 41796277 (7) UTI (urinary tract infection) Narrative/Plan: * Treated with Rocephin and urine cultures growing group B strep agalactiae Current Visit: Yes Status: Resolved Code(s): N39.0 - URINARY TRACT INFECTION , SITE NOT SPECIFIED SNOMED Code(s): 29846144 (8) Recurrent falls Current Visit: Yes Status: Acute Code(s): R29.6 - REPEATED FALLS SNOMED Code(s): 474559501 (9) Left hemiparesis Current Visit: Yes Status: Acute Code(s): G81.94 - HEMIPLEGIA, UNSPECIFIED AFFECTING LEFT NONDOMINANT SIDE SNOMED Code(s): 513504949 Plan: Anticipate discharge tomorrow if blood pressures are improved
[2018-03-09 17:21] LABS: Glucose,Whole Blood 242 mg/dL (75-99)
[2018-03-09] MEDS: INSULIN ASPART 100 UNIT/ML 1 ML 10 ML VIAL SQ PRN (18:55)
[2018-03-09] MEDS: ATORVASTATIN 40 MG TAB PO SCH (19:59)
[2018-03-09] MEDS: METOPROLOL TARTRATE 50 MG TAB PO SCH (20:00)
[2018-03-09] MEDS: ZOLPIDEM 5 MG TAB PO SCH (20:05)
[2018-03-09 20:46] LABS: Glucose,Whole Blood 267 mg/dL (75-99)
[2018-03-09] MEDS: INSULIN DETEMIR 100 UNIT/ML 10 ML VIAL SQ SCH (22:07)
[2018-03-10 01:34] LABS: Glucose,Whole Blood 225 mg/dL (75-99)
[2018-03-10 06:09] LABS: Glucose,Whole Blood 452 mg/dL (75-99)
[2018-03-10] MEDS ORDERED: INSULIN ASPART 100 UNIT/ML 1 ML 10 ML VIAL SQ ONE (06:20)
[2018-03-10] MEDS: NICOTINE 14MG/24HR PATCH TRANSDERM SCH (06:37)
--- NOTE | 2018-03-10 08:35 | P.DS ---
Providers Date of admission: 03/05/18 16:40 Expected date of discharge: 03/10/18 Attending physician: Jnonie Marr MD Consults: 03/05/18 16:41 Consult Physician Routine Consulting Provider: John Blake Consult Reason/Comments: cva Do you want consulting provider notified?: Yes 03/08/18 08:43 Consult Physician Routine Consulting Provider: Rios Sáncehz Consult Reason/Comments: Eval for REhab Do you want consulting provider notified?: Yes Primary care physician: Nakita Meyer MD - Discharge Diagnosis(es) (1) Brainstem stroke Current Visit: Yes Status: Acute (2) Hypertensive emergency Current Visit: Yes Status: Acute (3) Hyperlipidemia LDL goal <70 Current Visit: Yes Status: Acute (4) Hypokalemia Current Visit: Yes Status: Acute (5) Type 2 diabetes mellitus with hyperglycemia Current Visit: Yes Status: Acute (6) Sepsis Current Visit: Yes Status: Resolved (7) UTI (urinary tract infection) Current Visit: Yes Status: Resolved (8) Recurrent falls Current Visit: Yes Status: Acute (9) Left hemiparesis Current Visit: Yes Status: Acute Hospital Course: The patient is a 62-year-old female who was transferred here from [place] after she presented with left-sided hemiparesis, left facial droop and eye ptosis she was admitted on the telemetry unit to rule out acute CVA. She had a CT of the head that was negative for any acute cranial pathology only age- related chronic ischemic small vessel disease, CT of the neck showed no evidence of embolus or aneurysm or dissection. The patient was started on stroke protocol with aspirin, echocardiogram showed an ejection normal ejection fraction of 55-60% with preserved LV function. Subsequent MRI of the brain showed a subacute infarct in the brainstem, neurology was consulted and the patient was switched to Plavix, EEG was also performed that showed no seizure- like activity. PT OT and speech was consulted to see the patient. On presentation the patient was noted to have sepsis secondary to UTI she was started on empiric IV antibiotics with Rocephin, her leukocytosis resolved urine cultures did come back positive for strep agalactiae. The patient was also noted to be in hypertensive emergency a post CVA, she was allowed to have permissive hypertension with very gradual blood pressure control. Her blood pressures were controlled with Norvasc, chlorthalidone, metoprolol and lisinopril. She was eventually discharged tomorrow if ongoing rehab and physical therapy for her acute CVA with residual left-sided hemiparesis left- sided facial droop and eye ptosis. This discharge process took approximately 35 minutes Physical exam Constitutional: No acute distress, conversant, pleasant Eyes: Anicteric sclerae, moist conjunctiva, left eye ptosis ENMT: NC/AT,Oropharynx clear, no erythema, exudates Neck:Supple, FROM, no masses, or JVD, No carotid bruits; No thyromegaly Lungs: Clear to auscultation, Clear to percussion, Normal respiratory effort, no accessory muscle use Cardiovascular: Heart regular in rate and rhythm, No murmurs, gallops, or rubs no peripheral edema Abdominal: Soft Nontender, nom distended, no guarding, no rebound or rigidity, Normoactive bowel sounds No hepatomegaly, No splenomegaly, No palpable mass No abdominal wall hernia noted Skin: Normal temperature, tone, texture, turgor, No induration No subcutaneous nodules, No rash, lesions, No ulcers Extremities:No digital cyanosis No clubbing, Pedal pulses intact and symmetrical Radial pulses intact and symmetrical Normal gait and station, No calf tenderness Psychiatric: Alert and oriented to person, place and time, Appropriate affect Intact judgement Neuro: Left-sided hemiparesis, left-sided facial droop, eyelid ptosis. Prescriptions at discharge Plavix 75 mg by mouth daily Norvasc 10 mg by mouth daily Lisinopril 40 mg by mouth daily Atorvastatin 40 mg by mouth daily at bedtime Metoprolol 50 mg by mouth twice a day Patient Condition at Discharge: Serious Plan - Discharge Summary Discharge Rx Participant: Yes New Discharge Prescriptions: New amLODIPine [Norvasc] 10 mg PO DAILY #30 tab Atorvastatin [Lipitor] 40 mg PO HS #30 tab Chlorthalidone [Hygroton] 25 mg PO DAILY #30 tab Clopidogrel [Plavix] 75 mg PO DAILY #30 tab Metoprolol Tartrate [Lopressor] 50 mg PO BID #60 tab Continue traMADol HCL [Ultram] 50 mg PO Q6HR PRN PRN Reason: Pain metFORMIN HCL 1,000 mg PO BID glipiZIDE [Glucotrol] 10 mg PO AC-BID Lisinopril 40 mg PO DAILY Sertraline HCl [Zoloft] 50 mg PO DAILY Insulin Glargine,Hum.rec.anlog [Lantus Solostar] 33 unit SQ HS Aspirin EC [Ecotrin Low Dose] 81 mg PO DAILY Discharge Medication List Insulin Glargine,Hum.rec.anlog [Lantus Solostar] 33 unit SQ HS 10/29/17 [History ] Lisinopril 40 mg PO DAILY 10/29/17 [History] Sertraline HCl [Zoloft] 50 mg PO DAILY 10/29/17 [History] glipiZIDE [Glucotrol] 10 mg PO AC-BID 10/29/17 [History] metFORMIN HCL 1,000 mg PO BID 10/29/17 [History] traMADol HCL [Ultram] 50 mg PO Q6HR PRN 10/29/17 [History] Aspirin EC [Ecotrin Low Dose] 81 mg PO DAILY 03/05/18 [History] Atorvastatin [Lipitor] 40 mg PO HS #30 tab 03/10/18 [Rx] Chlorthalidone [Hygroton] 25 mg PO DAILY #30 tab 03/10/18 [Rx] Clopidogrel [Plavix] 75 mg PO DAILY #30 tab 03/10/18 [Rx] Metoprolol Tartrate [Lopressor] 50 mg PO BID #60 tab 03/10/18 [Rx] amLODIPine [Norvasc] 10 mg PO DAILY #30 tab 03/10/18 [Rx] Follow up Appointment(s)/Referral(s): Nakita Meyer MD [Primary Care Provider] - 1-2 days Raphael Schmidt [NON-STAFF] - As Needed John Blake MD [STAFF PHYSICIAN] - 1 Week Discharge Disposition: DC/TRNS INTERMEDIATE CARE FAC
[2018-03-10] MEDS: amLODIPine 10 MG TAB PO SCH (09:19)
[2018-03-10] MEDS: CHLORTHALIDONE 25 MG TAB PO SCH (09:19)
[2018-03-10] MEDS: METOPROLOL TARTRATE 50 MG TAB PO SCH (09:19)
[2018-03-10] MEDS: CLOPIDOGREL 75 MG TAB PO SCH (09:19)
[2018-03-10] MEDS: LISINOPRIL 20 MG TAB PO SCH (09:20)
[2018-03-10] MEDS: ENOXAPARIN 40 MG/0.4 ML SYRINGE SQ SCH (09:21)
[2018-03-10 10:25] VITALS: BP 157/73; PULSE 83; RESP 16; TEMP 96.6
[2018-03-10] MEDS: FLUTICASONE 50MCG/SPRAY NASAL 16GM EA NOSTRIL PRN (10:49)
[2018-03-10 12:02] LABS: Glucose,Whole Blood 305 mg/dL (75-99)
== END 2018-03-10 16:00 | DRG 64 ==
LOC: EC 14:16 → 6SEL 16:40
PROVIDERS: ADMIT Family Medicine; ATTEND Family Medicine
DX: I63.9 Cerebral infarction, unspecified (principal); A41.9 Sepsis, unspecified organism; I69.354 Hemiplegia and hemiparesis following cerebral infarction affecting left non-dominant side; I16.1 Hypertensive emergency; N39.0 Urinary tract infection, site not specified; E11.65 Type 2 diabetes mellitus with hyperglycemia; E66.9 Obesity, unspecified; E78.5 Hyperlipidemia, unspecified; E87.6 Hypokalemia; F17.210 Nicotine dependence, cigarettes, uncomplicated; F32.9 Major depressive disorder, single episode, unspecified; I11.9 Hypertensive heart disease without heart failure; R29.6 Repeated falls; S09.90XA Unspecified injury of head, initial encounter; W19.XXXA Unspecified fall, initial encounter; Z79.4 Long term (current) use of insulin; Z79.82 Long term (current) use of aspirin; Z79.899 Other long term (current) drug therapy; Z82.3 Family history of stroke; Z82.49 Family history of ischemic heart disease and other diseases of the circulatory system; Z79.84 Long term (current) use of oral hypoglycemic drugs; Z88.1 Allergy status to other antibiotic agents; R29.714 NIHSS score 14
CPT/HCPCS: 36415; 70450; 70496; 70498; 70551; 71046; 80048; 80053; 80061; 81001; 82550; 82553; 83036; 83090; 84484; 85025; 85610; 85730; 87040; 87086; 87502; 93005; 93306; 94760; 95819; 96361; 96374; 96375; 99285

== ENCOUNTER 2018-03-16 02:58 | Inpatient (IN) | payer OTHER ==
[2018-03-16] MEDS ORDERED: ONDANSETRON 4 MG/2 ML VIAL IVP STA (03:18)
[2018-03-16 03:34] LABS: Basophils # (A) 0.1 k/uL (0-0.2); Basophils % (A) 0 %; Eosinophils # (A) 0.1 k/uL (0-0.7); Eosinophils % (A) 0 %; HCT 43.1 % (34.0-46.0); Lymphocytes # (A) 1.3 k/uL (1.0-4.8); Lymphocytes % (A) 9 %; MCH 28.2 pg (25.0-35.0); MCHC 32.6 g/dL (31.0-37.0); MCV 86.4 fL (80.0-100.0); Mean Platelet Volume 7.2; Monocytes # (A) 0.5 k/uL (0-1.0); Monocytes % (A) 3 %; Neutrophils # (A) 13.8 k/uL (1.3-7.7); Neutrophils % (A) 87 %; Platelet Count 266 k/uL (150-450); RBC 4.98 m/uL (3.80-5.40); RDW 13.7 % (11.5-15.5); WBC 15.8 k/uL (3.8-10.6)
[2018-03-16 03:50] LABS: Albumin 3.3 g/dL (3.5-5.0); Calcium 7.6 mg/dL (8.4-10.2); Potassium 3.3 mmol/L (3.5-5.1); Total Bilirubin 0.4 mg/dL (0.2-1.3); Total Protein 5.8 g/dL (6.3-8.2)
--- NOTE | 2018-03-16 04:10 | XR ---
EXAM: XR Kub CLINICAL HISTORY: pain TECHNIQUE: X-ray kub. COMPARISON: CT examination 02/13/17. FINDINGS/IMPRESSION: Patient is rotated. Portions of the abdomen/flanks clipped. Bowel gas pattern is nonobstructive. Calcifications seen in region the kidneys are compatible with stones which were also seen on the previous CT examination
[2018-03-16] MEDS ORDERED: SODIUM CHLORIDE 0.9% 1,000 ML IV ONE ×2 (06:46→07:58)
--- NOTE | 2018-03-16 07:55 | ED ---
Nausea/Vomiting/Diarrhea HPI - General Chief complaint: Nausea/Vomiting/Diarrhea Stated complaint: Nausea, vomiting Time Seen by Provider: 03/16/18 03:01 Source: EMS Mode of arrival: EMS Limitations: physical limitation - History of Present Illness Initial comments: This patient is a 62-year-old woman transferred here [facility] to be evaluated for multiple rounds of vomiting with some coffee ground emesis. The patient had recently been in the hospital here for a CVA. When I interview the patient, the history is somewhat limited as there appears to be some mild to moderate underlying dementia. The patient denies chest or abdominal pain. There is no dyspnea. She is not aware of any change in bowel movements though she does not recall when her last bowel movement occurred. MD complaint: nausea, vomiting -: hour(s) Description of Vomiting: food contents, coffee grounds Associated Abdominal Pain: No Consistency: constant Improves with: none Worsens with: none Associated Symptoms: denies other symptoms - Related Data Home Medications Medication Instructions Recorded Confirmed Insulin Glargine,Hum.rec.anlog 33 unit SQ HS 10/29/17 03/05/18 [Lantus Solostar] Lisinopril 40 mg PO DAILY 10/29/17 03/05/18 Sertraline HCl [Zoloft] 50 mg PO DAILY 10/29/17 03/05/18 glipiZIDE [Glucotrol] 10 mg PO AC-BID 10/29/17 03/05/18 metFORMIN HCL 1,000 mg PO BID 10/29/17 03/05/18 traMADol HCL [Ultram] 50 mg PO Q6HR PRN 10/29/17 03/05/18 Aspirin EC [Ecotrin Low Dose] 81 mg PO DAILY 03/05/18 03/05/18 Previous Rx's Medication Instructions Recorded Atorvastatin [Lipitor] 40 mg PO HS #30 tab 03/10/18 Chlorthalidone [Hygroton] 25 mg PO DAILY #30 tab 03/10/18 Clopidogrel [Plavix] 75 mg PO DAILY #30 tab 03/10/18 Metoprolol Tartrate [Lopressor] 50 mg PO BID #60 tab 03/10/18 amLODIPine [Norvasc] 10 mg PO DAILY #30 tab 03/10/18 Allergies Allergy/AdvReac Type Severity Reaction Status Date / Time Tetracyclines Allergy Unknown Verified 03/16/18 02:59 Review of Systems ROS Statement: Those systems with pertinent positive or pertinent negative responses have been documented in the HPI. ROS Other: All systems not noted in ROS Statement are negative. Limitations: ROS unobtainable due to patients medical condition Constitutional: Denies: fever Respiratory: Denies: cough, dyspnea Cardiovascular: Denies: chest pain, syncope Gastrointestinal: Reports: nausea, vomiting, hematemesis (Coffee-ground). Denies: abdominal pain, diarrhea, melena, hematochezia Musculoskeletal: Denies: back pain Neurological: Denies: headache Past Medical History Past Medical History: CVA/TIA, Diabetes Mellitus, Hypertension Additional Past Medical History / Comment(s): cva 2006 History of Any Multi-Drug Resistant Organisms: None Reported Past Surgical History: Section, Orthopedic Surgery Additional Past Surgical History / Comment(s): left knee sx Past Psychological History: Depression Smoking Status: Current every day smoker Past Alcohol Use History: Occasional Past Drug Use History: None Reported General Exam Limitations: no limitations General appearance: alert, in no apparent distress Head exam: Present: atraumatic, normocephalic Eye exam: Present: normal appearance ENT exam: Present: other (Sided facial droop) Neck exam: Present: normal inspection Respiratory exam: Present: normal lung sounds bilaterally. Absent: respiratory distress, wheezes, rales, rhonchi, stridor Cardiovascular Exam: Present: regular rate, normal rhythm, normal heart sounds. Absent: systolic murmur, diastolic murmur, rubs, gallop GI/Abdominal exam: Present: soft, normal bowel sounds. Absent: tenderness, guarding, rebound, mass, pulsatile mass, hernia Extremities exam: Present: normal inspection, normal capillary refill. Absent: pedal edema, calf tenderness Back exam: Present: normal inspection. Absent: CVA tenderness (R), CVA tenderness (L) Neurological exam: Present: alert, motor sensory deficit (sided weakness). Absent: oriented X3 (Patient is oriented to person and recognizes that she is in a health care facility but could not state the date) Skin exam: Present: warm, dry, intact, normal color. Absent: rash Course Vital Signs 03/16/18 03/16/18 03/16/18 02:59 04:05 06:00 Temperature 97.5 F L Pulse Rate 88 88 90 Respiratory 18 20 18 Rate Blood Pressure 124/65 137/76 108/60 O2 Sat by Pulse 92 L 97 97 Oximetry 03/16/18 03/16/18 06:25 07:00 Temperature Pulse Rate 92 84 Respiratory 20 18 Rate Blood Pressure 103/64 112/56 O2 Sat by Pulse 98 97 Oximetry Medical Decision Making - Lab Data Result diagrams: 03/16/18 03:08 03/16/18 03:08 Lab Results 03/16/18 03/16/18 Range/Units 03:08 03:08 WBC 15.8 H (3.8-10.6) k/uL RBC 4.98 (3.80-5.40) m/uL Hgb 14.0 (11.4-16.0) gm/dL Hct 43.1 (34.0-46.0) % MCV 86.4 (80.0-100.0) fL MCH 28.2 (25.0-35.0) pg MCHC 32.6 (31.0-37.0) g/dL RDW 13.7 (11.5-15.5) % Plt Count 266 (150-450) k/uL Neutrophils % 87 % Lymphocytes % 9 % Monocytes % 3 % Eosinophils % 0 % Basophils % 0 % Neutrophils # 13.8 H (1.3-7.7) k/uL Lymphocytes # 1.3 (1.0-4.8) k/uL Monocytes # 0.5 (0-1.0) k/uL Eosinophils # 0.1 (0-0.7) k/uL Basophils # 0.1 (0-0.2) k/uL Sodium 141 (137-145) mmol/L Potassium 3.3 L (3.5-5.1) mmol/L Chloride 102 (98-107) mmol/L Carbon Dioxide 22 (22-30) mmol/L Anion Gap 17 mmol/L BUN 77 H (7-17) mg/dL Creatinine 1.32 H (0.52-1.04) mg/dL Est GFR (CKD-EPI)AfAm 51 (>60 ml/min/1.73 sqM) Est GFR (CKD-EPI)NonAf 44 (>60 ml/min/1.73 sqM) Glucose 231 H (74-99) mg/dL Calcium 7.6 L (8.4-10.2) mg/dL Total Bilirubin 0.4 (0.2-1.3) mg/dL AST 20 (14-36) U/L ALT 41 (9-52) U/L Alkaline Phosphatase 40 (38-126) U/L Total Protein 5.8 L (6.3-8.2) g/dL Albumin 3.3 L (3.5-5.0) g/dL Amylase 42 (30-110) U/L Lipase 33 (23-300) U/L Disposition Clinical Impression: Dehydration, Hematemesis with nausea, Hypokalemia Disposition: ADMITTED IP TO THIS HOSP Condition: Fair Referrals: Nakita Meyer MD [Primary Care Provider] - 1-2 days
[2018-03-16] MEDS ORDERED: traMADol 50 MG TAB PO PRN (08:01)
[2018-03-16] MEDS ORDERED: LISINOPRIL 20 MG TAB PO SCH (09:00)
[2018-03-16] MEDS ORDERED: metFORMIN 500 MG TAB PO SCH (09:00)
[2018-03-16] MEDS ORDERED: CHLORTHALIDONE 25 MG TAB PO SCH (09:00)
[2018-03-16] MEDS ORDERED: ONDANSETRON 4 MG/2 ML VIAL ONE (10:02)
[2018-03-16] MEDS: SERTRALINE 50 MG TAB PO SCH (10:17)
[2018-03-16] MEDS: METOPROLOL TARTRATE 50 MG TAB PO SCH ×2 (10:17→20:25)
[2018-03-16] MEDS: amLODIPine 10 MG TAB PO SCH (10:17)
[2018-03-16] MEDS: ASPIRIN 81 MG PO SCH (10:17)
[2018-03-16] MEDS: CLOPIDOGREL 75 MG TAB PO SCH (10:17)
[2018-03-16] MEDS ORDERED: ACETAMINOPHEN TAB 325 MG TAB PO PRN (10:26)
[2018-03-16] MEDS ORDERED: DOCUSATE 100 MG CAP PO PRN (10:26)
[2018-03-16] MEDS ORDERED: ONDANSETRON 4 MG/2 ML VIAL IVP PRN (10:26)
--- NOTE | 2018-03-16 10:28 | P.HPIM ---
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 She was recently here from [address] [place] [address] secondary to new onset left-sided weakness. She was found to have a brainstem infarct. She was also found have a urinary tract infection was treated with IV antibiotics. She was seen by neurology and subsequently discharged to the halfway. In the ER she underwent an extensive evaluation. Her initial vital signs were found to be within normal limits. Laboratory analysis showed an elevated white blood cell count, elevated creatinine 1.3 and a low potassium of 3.3. She was found have a negative KUB. She was started on IV fluids and arrangements were made for admission. Patient seen and examined at bedside. She states she started vomiting yesterday with dinner. She states that it has been brown and green. She denies any blood. She denies any belly pain. She has not had diarrhea but complains of constipation. Family then presents to bedside and states that she has not had a bowel movement being at the halfway. She denies any chest pain, shortness of breath, dysuria, she does have urinary incontinence. She has chronic left-sided upper and lower extremity weakness as well as left-sided facial droop but this has not changed since being discharged. She denies any difficulty swallowing or choking episodes. Family is concerned she has not been eating at the halfway and has continued to dwindle. She has no other complaints currently. Review of Systems Positives: + Vomiting, + decreased appetite, + left-sided weakness Pertinent positives and negatives as discussed in HPI, a complete review of systems was performed and all other systems are negative. Past Medical History Past Medical History: CVA/TIA, Diabetes Mellitus, Hyperlipidemia, Hypertension Additional Past Medical History / Comment(s): Pt recently admitted to [facility] on with brainstem CVA-L sided hemiparesis/speech involvement, UTI with sepesis. Other hx: prior CVA 2005 which "slowed her down mentally" per her sister and LGYamileth History of Any Multi-Drug Resistant Organisms: None Reported Past Surgical History: Section, Orthopedic Surgery Additional Past Surgical History / Comment(s): Open left knee sx as a teen. Past Anesthesia/Blood Transfusion Reactions: No Reported Reaction Smoking Status: Current every day smoker Past Alcohol Use History: None Reported Past Drug Use History: None Reported Additional History: Lives at a halfway, mostly bedbound but getting up to wheelchair at this time. - Past Family History Father Family Medical History: CVA/TIA, Myocardial Infarction (IA) Additional Family Medical History / Comment(s): Father had a IA at the age of 56yrs. He had a CVA at 71 yrs of age and after that event. Mother Family Medical History: Hyperlipidemia, Hypertension Medications and Allergies Home Medications Medication Instructions Recorded Confirmed Type RX: Lisinopril 40 mg PO DAILY@0900 10/29/17 03/16/18 History RX: Sertraline HCl [Zoloft] 50 mg PO DAILY@0900 10/29/17 03/16/18 History RX: glipiZIDE [Glucotrol] 10 mg PO BID@0600,1700 10/29/17 03/16/18 History RX: metFORMIN HCL 1,000 mg PO BID@0900,1700 10/29/17 03/16/18 History RX: traMADol HCL [Ultram] 50 mg PO Q6HR PRN 10/29/17 03/16/18 History RX: Aspirin EC [Ecotrin Low Dose] 81 mg PO DAILY@0900 03/05/18 03/16/18 History RX: Atorvastatin [Lipitor] 40 mg PO HS #30 tab 03/10/18 03/16/18 Rx RX: Chlorthalidone [Hygroton] 25 mg PO DAILY #30 tab 03/10/18 03/16/18 Rx RX: Clopidogrel [Plavix] 75 mg PO DAILY #30 tab 03/10/18 03/16/18 Rx RX: Metoprolol Tartrate [Lopressor] 50 mg PO BID #60 tab 03/10/18 03/16/18 Rx RX: amLODIPine [Norvasc] 10 mg PO DAILY #30 tab 03/10/18 03/16/18 Rx Insulin Glargine,Hum.rec.anlog 33 units SQ HS 03/16/18 03/16/18 History [Aldair Vee U-100] Allergies Allergy/AdvReac Type Severity Reaction Status Date / Time Tetracyclines Allergy Unknown Verified 03/16/18 08:40 Physical Exam Osteopathic Statement: *. No significant issues noted on an osteopathic structural exam other than those noted in the History and Physical/Consult. Vitals: Vital Signs Temp Pulse Pulse Resp BP BP Pulse Ox 03/16/18 09:25 96.2 F L 93 18 131/60 97 03/16/18 08:39 97.6 F 85 18 108/62 100 03/16/18 07:00 84 18 112/56 97 03/16/18 06:25 92 20 103/64 98 03/16/18 06:00 90 18 108/60 97 03/16/18 04:05 88 20 137/76 97 03/16/18 02:59 97.5 F L 88 18 124/65 92 L Intake and Output 03/15/18 03/16/18 03/16/18 22:59 06:59 14:59 Other: Weight 69.672 kg General: non toxic, mild distress, appears older than stated age, normal weight Derm: no unusual rashes/lesions no unusual ecchymoses, warm, dry Head: atraumatic, normocephalic, symmetric Eyes: EOMI, lid lag on the left, anicteric sclera, pupils equal round reactive to light ENT: Nose and ears atraumatic, no thrush, no pharyngeal erythema Neck: No thyromegaly, no cervical lymphadenopathy, trachea midline, supple Mouth: no lip lesion, mucus membranes moist Cardiovascular: S1S2 reg, no murmur, positive posterior tibial pulse bilateral, no edema, capillary refill less than 2 seconds Lungs: CTA bilateral, no rhonchi, no rales , no accessory muscle use Abdominal: soft, nontender to palpation, no guarding, no appreciable organomegaly, normal bowel sounds Ext: no gross muscle atrophy, muscle strength 5 out of 5 right upper extremity, right lower extremity. Muscle strength is 0 out of 5 in left upper extremity and left lower extremity, no contractures, Neuro: Left-sided facial droop with left eyelid lag, loss of nasolabial fold on the left, light touch intact all 4 extremities, but decreased on the left, finger to nose within normal limits on the right unable to participate on the left, Psych: Alert, oriented, appropriate affect Results CBC & Chem 7: 03/16/18 03:08 03/16/18 03:08 Labs: Abnormal Lab Results - Last 24 Hours (Table) 03/16/18 03/16/18 Range/Units 03:08 03:08 WBC 15.8 H (3.8-10.6) k/uL Neutrophils # 13.8 H (1.3-7.7) k/uL Potassium 3.3 L (3.5-5.1) mmol/L BUN 77 H (7-17) mg/dL Creatinine 1.32 H (0.52-1.04) mg/dL Glucose 231 H (74-99) mg/dL Calcium 7.6 L (8.4-10.2) mg/dL Total Protein 5.8 L (6.3-8.2) g/dL Albumin 3.3 L (3.5-5.0) g/dL Comments: EKG reveals normal sinus rhythm at a rate of 88, left axis deviated, GA 168, QRS 92, QTC 747, nonspecific ST-T wave changes Chest x-ray: pending Abdominal x-ray: report reviewed Thrombosis Risk Factor Assmnt - DVT/VTE Prophylaxis DVT/VTE Prophylaxis: Pharmacologic Prophylaxis ordered - Choose All That Apply Any of the Below Risk Factors Present?: Yes Each Factor Represents 1 point: Age 41-60 years, Sepsis (< 1month) Other Risk Factors: Yes Other congenital or acquired thrombophilia - If yes, enter type in comment: No Each Risk Factor Represents 5 Points: Stroke (< 1 month) Thrombosis Risk Factor Assessment Total Risk Factor Score: 7 Thrombosis Risk Factor Assessment Level: High Risk Assessment and Plan Assessment: Acute kidney injury with dehydration -IV fluids -Hold MALA inhibitor and diuretic -Follow basic metabolic profile -Avoid nephrotoxic agents -If no improvement in a.m. then consult nephrology -Renal ultrasound, also possible with renal stone on KUB Vomiting - prn zofran - Possible due to severe constipation versus gastroenteritis -When necessary Colace -ABD x-ray - check UA Leukocytosis, undetermined cause -May be secondary to dehydration and vomiting -Check UA will need straight cath -Check x-ray -Check abdominal x-ray -Check procalcitonin -Check CBC and follow fever profiles -No antibiotics unless definitive source is found Diabetes mellitus type 2 -Hold metformin and sulfonylurea -Sliding-scale insulin -Hemoglobin A1c was just checked at halfway and was 7.3 Hypertension -Follow blood pressures -Hold MALA inhibitor secondary to a cat -Continue with Norvasc Dyslipidemia -Follow statin Functional debility secondary to recent stroke with left-sided weakness -Continue aspirin, Plavix, statin -Consult PT and speech therapy Moderate protein calorie malnutrition with albumin 3.3, decreased oral intake -Have speech reevaluate patient to ensure diet consistent seat is appropriate -Supplementation - consult dietitian Surrogate decision-maker: sister Yamileth CODE STATUS:DNR DVT prophylaxis: Lovenox Discussed with: Patient, family, nursing Anticipated discharge: 48-[address]: return to halfway A total of 65 minutes was spent on the care of this complex patient more than 50 % of the time was spent in counseling and care coordination.
--- NOTE | 2018-03-16 11:36 | XR ---
EXAMINATION TYPE: XR abdomen acute w cxr DATE OF EXAM: 03/16/2018 COMPARISON: CT abdomen pelvis 03/05/2018 from outside institution HISTORY: Vomiting, difficulty swallowing TECHNIQUE: Supine, upright, and frontal chest views of the abdomen and chest are obtained. FINDINGS: The heart is enlarged. There is no evidence for pneumoperitoneum. The bowel gas pattern is unremarkable as there is air throughout nondilated small and large bowel. No sizeable air fluid levels. No mass effects are seen. Multiple calcifications are present as noted on CT within the kidneys and mesenteric and peripheral v asculature IMPRESSION: Cardiomegaly. Nephrolithiasis, peripheral vascular occlusive disease
[2018-03-16 11:55] VITALS: BMI 24.7
[2018-03-16 12:04] LABS: Glucose,Whole Blood 308 mg/dL (75-99)
[2018-03-16 12:23] LABS: Appearance,Urine Cloudy (Clear); Bacteria,Urine Rare /hpf; Bilirubin,Urine Negative (Negative); Blood,Urine Trace (Negative); Budding Yeast,Urine Occasional /hpf; Color,Urine Yellow; Glucose,Urine (UA) 2+ (Negative); Hyaline Casts,Urine 1 /lpf (0-2); Ketones,Urine Negative (Negative); Leukocyte Esterase,Urine Large (Negative); Mucus,Urine Rare /hpf; Nitrite,Urine Negative (Negative); Protein,Urine Trace (Negative); RBC,Urine 9 /hpf (0-5); Specific Gravity,Urine 1.013 (1.001-1.035); Squamous Epithelial Cell,Urine 5 /hpf (0-4); Urobilinogen,Urine <2.0 mg/dL (<2.0); WBC,Urine 54 /hpf (0-5)
[2018-03-16] MEDS: INSULIN ASPART 100 UNIT/ML 1 ML 10 ML VIAL SQ SCH ×3 (13:10→22:06)
--- NOTE | 2018-03-16 15:24 | US ---
EXAMINATION TYPE: US kidneys/renal and bladder DATE OF EXAM: 03/16/2018 COMPARISON: x-ray 03/16/2018,CT 02/13/2017 and 03/05/2018 from outside institution, US 01/30/2017 CLINICAL HISTORY: ESTELLE, possible stone. Recent stroke. patient was unable to roll onto her side during the exam due to left side weakness EXAM MEASUREMENTS: Right Kidney: 11.0 x 5.0 x 5.0 cm Left Kidney: 10.1 x 5.4 x 5.3 cm Right Kidney: No hydronephrosis. Multiple echogenic foci visualized, largest lower pole 0.9 cm Left Kidney: No hydronephrosis. Multiple echogenic foci visualized, largest mid pole 1.0 cm Bladder: wnl Bilateral Jets seen: No There is no evidence for hydronephrosis at this point in time. No masses are identified. Cortical m edullary differentiation is maintained. The urinary bladder is anechoic. There is no ascites. IMPRESSION: Bilateral nephrolithiasis.
[2018-03-16 17:19] LABS: Glucose,Whole Blood 271 mg/dL (75-99)
[2018-03-16] MEDS ORDERED: glipiZIDE 10 MG TAB PO SCH (17:30)
[2018-03-16] MEDS: cefTRIAXone IN SWFI 1,000 MG/10 ML SYRINGE IVP SCH (20:25)
[2018-03-16] MEDS: ATORVASTATIN 40 MG TAB PO SCH (20:25)
[2018-03-16] MEDS ORDERED: INSULIN DETEMIR 100 UNIT/ML 10 ML VIAL SQ SCH (21:00)
[2018-03-16] MEDS ORDERED: MELATONIN 5 MG TABLET PO PRN (21:00)
[2018-03-16 22:11] LABS: Glucose,Whole Blood 172 mg/dL (75-99)
[2018-03-17 07:28] LABS: Glucose,Whole Blood 240 mg/dL (75-99)
[2018-03-17] MEDS: METOPROLOL TARTRATE 50 MG TAB PO SCH ×2 (08:22→20:29)
[2018-03-17] MEDS: CLOPIDOGREL 75 MG TAB PO SCH (08:22)
[2018-03-17] MEDS: INSULIN ASPART 100 UNIT/ML 1 ML 10 ML VIAL SQ SCH ×4 (08:22→20:56)
[2018-03-17] MEDS: cefTRIAXone IN SWFI 1,000 MG/10 ML SYRINGE IVP SCH (08:22)
[2018-03-17] MEDS: ENOXAPARIN 40 MG/0.4 ML SYRINGE SQ SCH (08:22)
[2018-03-17] MEDS: amLODIPine 10 MG TAB PO SCH (08:22)
[2018-03-17] MEDS: ASPIRIN 81 MG PO SCH (08:22)
[2018-03-17] MEDS: SERTRALINE 50 MG TAB PO SCH (08:22)
[2018-03-17 09:04] LABS: HCT 41.9 % (34.0-46.0); HGB 13.8 gm/dL (11.4-16.0); MCH 29.2 pg (25.0-35.0); MCHC 32.9 g/dL (31.0-37.0); MCV 88.6 fL (80.0-100.0); Mean Platelet Volume 7.3; Platelet Count 252 k/uL (150-450); RBC 4.73 m/uL (3.80-5.40); RDW 13.6 % (11.5-15.5); WBC 11.6 k/uL (3.8-10.6)
[2018-03-17 09:16] LABS: Albumin 3.9 g/dL (3.5-5.0); Calcium 9.2 mg/dL (8.4-10.2); Magnesium 2.1 mg/dL (1.6-2.3); Potassium 3.7 mmol/L (3.5-5.1); Total Bilirubin 0.4 mg/dL (0.2-1.3); Total Protein 6.6 g/dL (6.3-8.2)
[2018-03-17] MEDS ORDERED: BISACODYL 5 MG TABLET.DR PO PRN (11:27)
--- NOTE | 2018-03-17 11:34 | P.PN ---
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 She was recently here from 03/05-03/10 secondary to new onset left-sided weakness. She was found to have a brainstem infarct. She was also found have a urinary tract infection was treated with IV antibiotics. She was seen by neurology and subsequently discharged to the fdc. In the ER she underwent an extensive evaluation. Her initial vital signs were found to be within normal limits. Laboratory analysis showed an elevated white blood cell count, elevated creatinine 1.3 and a low potassium of 3.3. She was found have a negative KUB. She was started on IV fluids and arrangements were made for admission for dehydration and intractable vomiting. On arrival to the floor she was still having vomiting. She was noted to have an elevated white blood cell count. She underwent an acute abdominal series including chest x-ray. She was found to have some fecal stasis on my review of the x-ray. Her chest x- ray was negative. UA revealed probable infection. We also did an ultrasound of the kidneys and bladder which demonstrated bilateral nephrolithiasis. She was started on Rocephin and urine culture was ordered. By the morning of her dehydration was improving and her vomiting resolved. Patient seen and examined at bedside. She complains of being thirsty, she states it is hard for her to get access to water and beverages due to her immobility. She states that her vomiting is completely resolved. She denies any belly pain. She is not having any cough or fever. We discussed at length that she likely has another urinary tract infection. I told her she also has bilateral kidney stones bypass urology to see her. We also discussed that her dehydration is improving but she would benefit from another 24 hours of IV fluids as her creatinine is still 0.3 above baseline. Objective - Vital Signs Vital signs: Vital Signs Temp 97.0 F L 03/17/18 05:53 Pulse 68 03/17/18 05:53 Resp 15 03/17/18 05:53 BP 117/67 03/17/18 05:53 Pulse Ox 92 L 03/17/18 05:53 Intake & Output 03/16/18 03/17/18 03/17/18 18:59 06:59 18:59 Intake Total 600 Balance 600 Weight 69.672 kg 69.672 kg Intake: Oral 600 Other: Voiding Method Incontinent Incontinent Incontinent # Voids 2 1 - Exam General: non toxic, no distress, appears at stated age Derm: warm, dry Head: atraumatic, normocephalic, left-sided facial droop Eyes: EOMI, + lid lag on the left, anicteric sclera Mouth: no lip lesion, mucus membranes moist Cardiovascular: S1S2 reg, no murmur, positive posterior tibial pulse bilateral, Lungs: Decreased breath sounds bilateral bases, no rhonchi, no rales , no accessory muscle use Abdominal: soft, nontender to palpation, no guarding, no appreciable organomegaly Ext: no gross muscle atrophy, no edema, no contractures Neuro: Left sided facial droop, left hemiplegia Psych: Alert, oriented, appropriate affect - Labs CBC & Chem 7: 03/17/18 08:36 03/17/18 08:36 Labs: Abnormal Lab Results - Last 24 Hours (Table) 03/16/18 03/16/18 03/16/18 Range/Units 03:08 12:01 12:05 WBC (3.8-10.6) k/uL BUN (7-17) mg/dL Glucose (74-99) mg/dL POC Glucose (mg/dL) 308 H (75-99) mg/dL Procalcitonin 0.12 H (0.02-0.09) ng/mL Urine Appearance Cloudy H (Clear) Urine Protein Trace H (Negative) Urine Glucose (UA) 2+ H (Negative) Urine Blood Trace H (Negative) Ur Leukocyte Esterase Large H (Negative) Urine RBC 9 H (0-5) /hpf Urine WBC 54 H (0-5) /hpf Ur Squamous Epith Cells 5 H (0-4) /hpf Urine Bacteria Rare H (None) /hpf Urine Mucus Rare H (None) /hpf Urine Yeast (Budding) Occasional H (None) /hpf 03/16/18 03/16/18 03/17/18 Range/Units 17:17 21:59 07:08 WBC (3.8-10.6) k/uL BUN (7-17) mg/dL Glucose (74-99) mg/dL POC Glucose (mg/dL) 271 H 172 H 240 H (75-99) mg/dL Procalcitonin (0.02-0.09) ng/mL Urine Appearance (Clear) Urine Protein (Negative) Urine Glucose (UA) (Negative) Urine Blood (Negative) Ur Leukocyte Esterase (Negative) Urine RBC (0-5) /hpf Urine WBC (0-5) /hpf Ur Squamous Epith Cells (0-4) /hpf Urine Bacteria (None) /hpf Urine Mucus (None) /hpf Urine Yeast (Budding) (None) /hpf 03/17/18 03/17/18 Range/Units 08:36 08:36 WBC 11.6 H (3.8-10.6) k/uL BUN 63 H (7-17) mg/dL Glucose 280 H (74-99) mg/dL POC Glucose (mg/dL) (75-99) mg/dL Procalcitonin (0.02-0.09) ng/mL Urine Appearance (Clear) Urine Protein (Negative) Urine Glucose (UA) (Negative) Urine Blood (Negative) Ur Leukocyte Esterase (Negative) Urine RBC (0-5) /hpf Urine WBC (0-5) /hpf Ur Squamous Epith Cells (0-4) /hpf Urine Bacteria (None) /hpf Urine Mucus (None) /hpf Urine Yeast (Budding) (None) /hpf Microbiology - Last 24 Hours (Table) 03/16/18 12:05 Urine Culture - Preliminary Urine,Voided Assessment and Plan Assessment: Acute kidney injury with dehydration -IV fluids -Off MALA inhibitor and diuretic -Follow basic metabolic profile -Avoid nephrotoxic agents UTI, present on admission -IV fluids -Rocephin -Urine culture Nephrolithiasis -Await urology consultation -Concern is recurrent urinary tract infections with nephrolithiasis. Constipation -Colace twice a day and when necessary to go lax Diabetes mellitus type 2 -Off metformin and sulfonylurea -Sliding-scale insulin, Levemir -Hemoglobin A1c was just checked at fdc and was 7.3 Hypertension -Follow blood pressures -Hold MALA inhibitor secondary to a cat -Continue with Norvasc Dyslipidemia -Follow statin Functional debility secondary to recent stroke with left-sided weakness -Continue aspirin, Plavix, statin -Consult PT and speech therapy Moderate protein calorie malnutrition with albumin 3.3, decreased oral intake -Have speech reevaluate patient to ensure diet consistent seat is appropriate -Supplementation - consult dietitian Vomiting, resolved Surrogate decision-maker: sister Yamileth CODE STATUS:DNR DVT prophylaxis: Lovenox Discussed with: Patient, nursing Anticipated discharge: 24-[address]: return to fdc A total of 25 minutes was spent on the care of this complex patient more than 50 % of the time was spent in counseling and care coordination.
--- NOTE | 2018-03-17 12:29 | P.GSCN ---
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 She was in the hospital approximately 2 weeks ago for evaluation of this and at that time was noted to have a Streptococcus agalactiae urinary tract infection which was treated with Rocephin. She was on no antibiotics at the time of discharge. Since that time she apparently has had a poor appetite and recently developed nausea and vomiting. She was admitted through the emergency room on 03/16 due to dehydration. BUN/creatinine were 77/1.32. BUN/ creatinine had been 19/0.5 on 03/08. Urinalysis at the time of admission suggested a possible urinary tract infection and the patient has been started on antibiotics. Renal ultrasound performed on 03/16 showed no abnormalities of the kidneys. The patient apparently has a history of recurrent urinary tract infections which date back over 6 months. She had a Klebsiella oxytocin the UTI in 2016. According to her sister who is her legal guardian she has had other infections treated since then. The patient is a poor historian and denied urinary leakage but had been wearing depends at the time of this admission. She says she usually voids every 1-3 hours during the day and has no nocturia. She says her bowels have been moving fairly normally. Review of Systems - Constitutional Reports poor appetite, Denies chills, Denies fever - Gastrointestinal Reports nausea, Reports vomiting, Denies constipation, Denies diarrhea - Genitourinary Genitourinary: Reports as per HPI Past Medical History Past Medical History: CVA/TIA, Diabetes Mellitus, Hyperlipidemia, Hypertension Additional Past Medical History / Comment(s): Pt recently admitted to [facility] on with brainstem CVA-L sided hemiparesis/speech involvement, UTI with sepesis. Other hx: prior CVA 2005 which "slowed her down mentally" per her sister and Yamileth RUSH History of Any Multi-Drug Resistant Organisms: None Reported Past Surgical History: Section, Orthopedic Surgery (Left knee) Additional Past Surgical History / Comment(s): Open left knee sx as a teen. Past Anesthesia/Blood Transfusion Reactions: No Reported Reaction Smoking Status: Current every day smoker Past Alcohol Use History: None Reported Past Drug Use History: None Reported - Past Family History Father Family Medical History: CVA/TIA, Myocardial Infarction (MD) Additional Family Medical History / Comment(s): Father had a MD at the age of 56yrs. He had a CVA at 71 yrs of age and after that event. Mother Family Medical History: Hyperlipidemia, Hypertension Medications and Allergies Home Medications Medication Instructions Recorded Confirmed Type Lisinopril 40 mg PO DAILY@0900 10/29/17 03/16/18 History Sertraline HCl [Zoloft] 50 mg PO DAILY@0900 10/29/17 03/16/18 History glipiZIDE [Glucotrol] 10 mg PO BID@0600,1700 10/29/17 03/16/18 History metFORMIN HCL 1,000 mg PO BID@0900,1700 10/29/17 03/16/18 History traMADol HCL [Ultram] 50 mg PO Q6HR PRN 10/29/17 03/16/18 History Aspirin EC [Ecotrin Low Dose] 81 mg PO DAILY@0900 03/05/18 03/16/18 History Atorvastatin [Lipitor] 40 mg PO HS #30 tab 03/10/18 03/16/18 Rx Chlorthalidone [Hygroton] 25 mg PO DAILY #30 tab 03/10/18 03/16/18 Rx Clopidogrel [Plavix] 75 mg PO DAILY #30 tab 03/10/18 03/16/18 Rx Metoprolol Tartrate [Lopressor] 50 mg PO BID #60 tab 03/10/18 03/16/18 Rx amLODIPine [Norvasc] 10 mg PO DAILY #30 tab 03/10/18 03/16/18 Rx Insulin Glargine,Hum.rec.anlog 33 units SQ HS 03/16/18 03/16/18 History [Basaglar Mariusz U-100] Allergies Allergy/AdvReac Type Severity Reaction Status Date / Time Tetracyclines Allergy Unknown Verified 03/16/18 08:40 Surgical - Exam Vital Signs Temp Pulse Resp BP Pulse Ox 97.5 F L 88 18 124/65 92 L 03/16/18 02:59 03/16/18 02:59 03/16/18 02:59 03/16/18 02:59 03/16/18 02:59 - General well developed, no pain, obese - Respiratory normal respiratory effort - Abdomen Abdomen: soft, non tender, no organomegaly, no masses - Genitourinary other (A Jc catheter is in place and is draining urine with a moderate amount of sediment.) - Neurologic memory loss, other (Weakness in the left arm and leg with drooping of left side of face) Results - Labs 03/17/18 08:36 03/17/18 08:36 Abnormal Lab Results - Last 24 Hours (Table) 03/16/18 03/16/18 03/16/18 Range/Units 03:08 12:05 17:17 WBC (3.8-10.6) k/uL BUN (7-17) mg/dL Glucose (74-99) mg/dL POC Glucose (mg/dL) 271 H (75-99) mg/dL Procalcitonin 0.12 H (0.02-0.09) ng/mL Urine Appearance Cloudy H (Clear) Urine Protein Trace H (Negative) Urine Glucose (UA) 2+ H (Negative) Urine Blood Trace H (Negative) Ur Leukocyte Esterase Large H (Negative) Urine RBC 9 H (0-5) /hpf Urine WBC 54 H (0-5) /hpf Ur Squamous Epith Cells 5 H (0-4) /hpf Urine Bacteria Rare H (None) /hpf Urine Mucus Rare H (None) /hpf Urine Yeast (Budding) Occasional H (None) /hpf 03/16/18 03/17/18 03/17/18 Range/Units 21:59 07:08 08:36 WBC 11.6 H (3.8-10.6) k/uL BUN (7-17) mg/dL Glucose (74-99) mg/dL POC Glucose (mg/dL) 172 H 240 H (75-99) mg/dL Procalcitonin (0.02-0.09) ng/mL Urine Appearance (Clear) Urine Protein (Negative) Urine Glucose (UA) (Negative) Urine Blood (Negative) Ur Leukocyte Esterase (Negative) Urine RBC (0-5) /hpf Urine WBC (0-5) /hpf Ur Squamous Epith Cells (0-4) /hpf Urine Bacteria (None) /hpf Urine Mucus (None) /hpf Urine Yeast (Budding) (None) /hpf 03/17/18 Range/Units 08:36 WBC (3.8-10.6) k/uL BUN 63 H (7-17) mg/dL Glucose 280 H (74-99) mg/dL POC Glucose (mg/dL) (75-99) mg/dL Procalcitonin (0.02-0.09) ng/mL Urine Appearance (Clear) Urine Protein (Negative) Urine Glucose (UA) (Negative) Urine Blood (Negative) Ur Leukocyte Esterase (Negative) Urine RBC (0-5) /hpf Urine WBC (0-5) /hpf Ur Squamous Epith Cells (0-4) /hpf Urine Bacteria (None) /hpf Urine Mucus (None) /hpf Urine Yeast (Budding) (None) /hpf Microbiology - Last 24 Hours (Table) 03/16/18 12:05 Urine Culture - Preliminary Urine,Voided Diabetes panel 03/17/18 Range/Units 08:36 Sodium 142 (137-145) mmol/L Potassium 3.7 (3.5-5.1) mmol/L Chloride 99 (98-107) mmol/L Carbon Dioxide 27 (22-30) mmol/L BUN 63 H (7-17) mg/dL Creatinine 0.87 (0.52-1.04) mg/dL Glucose 280 H (74-99) mg/dL Calcium 9.2 (8.4-10.2) mg/dL AST 22 (14-36) U/L ALT 40 (9-52) U/L Alkaline Phosphatase 52 (38-126) U/L Total Protein 6.6 (6.3-8.2) g/dL Albumin 3.9 (3.5-5.0) g/dL Calcium panel 03/17/18 Range/Units 08:36 Calcium 9.2 (8.4-10.2) mg/dL Albumin 3.9 (3.5-5.0) g/dL Pituitary panel 03/17/18 Range/Units 08:36 Sodium 142 (137-145) mmol/L Potassium 3.7 (3.5-5.1) mmol/L Chloride 99 (98-107) mmol/L Carbon Dioxide 27 (22-30) mmol/L BUN 63 H (7-17) mg/dL Creatinine 0.87 (0.52-1.04) mg/dL Glucose 280 H (74-99) mg/dL Calcium 9.2 (8.4-10.2) mg/dL Adrenal panel 03/17/18 Range/Units 08:36 Sodium 142 (137-145) mmol/L Potassium 3.7 (3.5-5.1) mmol/L Chloride 99 (98-107) mmol/L Carbon Dioxide 27 (22-30) mmol/L BUN 63 H (7-17) mg/dL Creatinine 0.87 (0.52-1.04) mg/dL Glucose 280 H (74-99) mg/dL Calcium 9.2 (8.4-10.2) mg/dL Total Bilirubin 0.4 (0.2-1.3) mg/dL AST 22 (14-36) U/L ALT 40 (9-52) U/L Alkaline Phosphatase 52 (38-126) U/L Total Protein 6.6 (6.3-8.2) g/dL Albumin 3.9 (3.5-5.0) g/dL Assessment and Plan (1) Incomplete bladder emptying Narrative/Plan: Post void residual was checked this morning and was approximately 250 mL. A Jc catheter was inserted. The patient's incomplete bladder emptying could be related to her acute CVA however chronic incomplete bladder emptying related to her diabetes could also be a possibility. Her incomplete bladder emptying may also be a contributory cause of her recurrent urinary tract infections. The patient's catheter should be left in place until it has been established as to whether or not she has a urinary tract infection at the present time. If she does have an infection the catheter could be removed after the infection has been treated. Although the patient does have an elevated post void residual it is not excessive and I would prefer that the patient not have a chronic indwelling catheter as this will clearly lead to recurrent infections. If the patient is discharged in the next day or two she could have a postvoid residual checked at her skilled nursing in a week or two to see if this is improving or worsening. Current Visit: Yes Status: Acute Code(s): R33.9 - RETENTION OF URINE, UNSPECIFIED SNOMED Code(s): 523986602
[2018-03-17 12:31] LABS: Glucose,Whole Blood 293 mg/dL (75-99)
[2018-03-17 17:12] LABS: Glucose,Whole Blood 208 mg/dL (75-99)
[2018-03-17] MEDS: ATORVASTATIN 40 MG TAB PO SCH (20:29)
[2018-03-17] MEDS: DOCUSATE 100 MG CAP PO SCH (20:29)
[2018-03-17] MEDS ORDERED: INSULIN DETEMIR 100 UNIT/ML 10 ML VIAL SQ SCH (21:00)
[2018-03-17 21:04] LABS: Glucose,Whole Blood 311 mg/dL (75-99)
[2018-03-18 07:32] LABS: Glucose,Whole Blood 154 mg/dL (75-99)
[2018-03-18] MEDS: INSULIN ASPART 100 UNIT/ML 1 ML 10 ML VIAL SQ SCH ×2 (07:55→12:14)
[2018-03-18] MEDS: cefTRIAXone IN SWFI 1,000 MG/10 ML SYRINGE IVP SCH (07:56)
[2018-03-18] MEDS: ENOXAPARIN 40 MG/0.4 ML SYRINGE SQ SCH (07:56)
[2018-03-18] MEDS: CLOPIDOGREL 75 MG TAB PO SCH (07:56)
[2018-03-18] MEDS: ASPIRIN 81 MG PO SCH (07:56)
[2018-03-18] MEDS: DOCUSATE 100 MG CAP PO SCH (07:56)
[2018-03-18] MEDS: SERTRALINE 50 MG TAB PO SCH (07:57)
[2018-03-18 08:03] VITALS: BP 114/71; PULSE 60; RESP 15; TEMP 97.8
[2018-03-18 08:36] LABS: HCT 42.3 % (34.0-46.0); HGB 14.1 gm/dL (11.4-16.0); MCH 29.1 pg (25.0-35.0); MCHC 33.4 g/dL (31.0-37.0); MCV 87.2 fL (80.0-100.0); Mean Platelet Volume 7.2; Platelet Count 224 k/uL (150-450); RBC 4.85 m/uL (3.80-5.40); RDW 13.6 % (11.5-15.5); WBC 11.9 k/uL (3.8-10.6)
[2018-03-18 08:53] LABS: Anion Gap 14 mmol/L; Blood Urea Nitrogen 36 mg/dL (7-17); Calcium 9.4 mg/dL (8.4-10.2); Carbon Dioxide 30 mmol/L (22-30); Chloride 99 mmol/L (98-107); Glucose 178 mg/dL (74-99); Potassium 3.6 mmol/L (3.5-5.1); Sodium 143 mmol/L (137-145)
[2018-03-18] MEDS: amLODIPine 10 MG TAB PO SCH (10:23)
[2018-03-18] MEDS: METOPROLOL TARTRATE 50 MG TAB PO SCH (10:24)
--- NOTE | 2018-03-18 11:48 | P.DS ---
Providers Date of admission: 03/16/18 08:01 Expected date of discharge: 03/18/18 Attending physician: Lorna Moreno DO Consults: 03/16/18 18:07 Consult Physician Routine Consulting Provider: Omi Guzmán Consult Reason/Comments: recurrent UTI with b/l nephrolithasis Do you want consulting provider notified?: Yes, Notify in am Primary care physician: Nakita Meyer MD - Discharge Diagnosis(es) (1) ESTELLE (acute kidney injury) Current Visit: Yes Status: Acute (2) Vomiting Current Visit: Yes Status: Acute (3) Incomplete bladder emptying Current Visit: Yes Status: Acute (4) UTI (urinary tract infection) Current Visit: No Status: Resolved (5) Dehydration Current Visit: Yes Status: Acute (6) Nephrolithiasis Current Visit: Yes Status: Acute (7) Constipation Current Visit: Yes Status: Acute (8) DM type 2 (diabetes mellitus, type 2) Current Visit: Yes Status: Acute (9) HTN (hypertension) Current Visit: Yes Status: Acute (10) HLD (hyperlipidemia) Current Visit: Yes Status: Acute (11) Physical debility Current Visit: Yes Status: Acute (12) Moderate protein-calorie malnutrition Current Visit: Yes Status: Acute Hospital Course: Patient is a 62-year-old female with a significant past medical history for recent brainstem CVA on 03/05/2018, diabetes, hypertension, and dyslipidemia who was sent in from her shelter secondary to vomiting. She was recently here from 03/05-03/10 secondary to new onset left-sided weakness. She was found to have a brainstem infarct. She was also found have a urinary tract infection was treated with IV antibiotics. She was seen by neurology and subsequently discharged to the shelter. In the ER she underwent an extensive evaluation. Her initial vital signs were found to be within normal limits. Laboratory analysis showed an elevated white blood cell count, elevated creatinine 1.3 and a low potassium of 3.3. She was found have a negative KUB. She was started on IV fluids and arrangements were made for admission for dehydration and intractable vomiting. On arrival to the floor she was still having vomiting. She was noted to have an elevated white blood cell count. She underwent an acute abdominal series including chest x-ray. She was found to have some fecal stasis on my review of the x-ray. Her chest x- ray was negative. UA revealed probable infection. We also did an ultrasound of the kidneys and bladder which demonstrated bilateral nephrolithiasis. She was started on Rocephin and urine culture was ordered. By the morning of 03/17 her dehydration was improving and her vomiting resolved. Her procalcitonin was slightly elevated. Urine culture grew urogenital anthony but had been obtained through a straight cath which should have no bacteria and we will therefore treat as an infection. She was seen by urology who found urinary retention and recommended a alexander cath be placed. Urology recommends that alexander been kept in place in until UTI treated and then voiding trial. They recommended she follows up with them if she has urinary retention after Alexander is discontinued. She was able to tolerate a regular diet. Her dehydration resolved and her kidney function was active baseline. I have recommended that she receive 8 ounces of water every 6 hours to prevent dehydration in the future. She also will be taken off of her hydrochlorothiazide and her lisinopril dose has been decreased. She was taken off of Norvasc secondary to low blood pressures. She was discharged back to [facility] in stable condition. She will complete an additional 5 days of Keflex. Patient seen and examined at bedside. She denies any chest pain or shortness of breath. She is tolerating her diet. Sister present at bedside and plan of care explained. Vital signs reviewed and stable. General: non toxic, no distress, appears at stated age Derm: warm, dry Head: atraumatic, normocephalic, symmetric Eyes: EOMI, + lid lag on left, anicteric sclera Mouth: no lip lesion, mucus membranes moist Cardiovascular: S1S2 reg, no murmur, positive posterior tibial pulse bilateral, Lungs: CTA bilateral, no rhonchi, no rales , no accessory muscle use Abdominal: soft, nontender to palpation, no guarding, no appreciable organomegaly Ext: no gross muscle atrophy, no edema, no contractures Neuro: Left-sided facial droop, left-sided hemiplegia Psych: Alert, oriented, appropriate affect A total of 45 minutes of time were spent preparing this complex discharge summary . Pertinent Studies: No evidence of hydronephrosis no masses identified on renal ultrasound KUB-no acute process Acute abdominal series-no intra-abdominal process Patient Condition at Discharge: Fair Plan - Discharge Summary Discharge Rx Participant: No New Discharge Prescriptions: New Bisacodyl [Dulcolax] 5 mg PO DAILY PRN tablet. PRN Reason: Constipation Lisinopril [Zestril] 10 mg PO DAILY #30 tab Cephalexin [Keflex] 250 mg PO Q6HR #20 cap Continue metFORMIN HCL 1,000 mg PO BID@0900,1700 glipiZIDE [Glucotrol] 10 mg PO BID@0600,1700 Sertraline HCl [Zoloft] 50 mg PO DAILY@0900 Aspirin EC [Ecotrin Low Dose] 81 mg PO DAILY@0900 Atorvastatin [Lipitor] 40 mg PO HS #30 tab Clopidogrel [Plavix] 75 mg PO DAILY #30 tab Metoprolol Tartrate [Lopressor] 50 mg PO BID #60 tab Insulin Glargine,Hum.rec.anlog [Basaglar Kwikpen U-100] 33 units SQ HS traMADol HCL [Ultram] 50 mg PO Q6HR PRN #30 tablet PRN Reason: Pain Discontinued Lisinopril 40 mg PO DAILY@0900 amLODIPine [Norvasc] 10 mg PO DAILY #30 tab Chlorthalidone [Hygroton] 25 mg PO DAILY #30 tab Discharge Medication List Sertraline HCl [Zoloft] 50 mg PO DAILY@0900 10/29/17 [History] glipiZIDE [Glucotrol] 10 mg PO BID@0600,1700 10/29/17 [History] metFORMIN HCL 1,000 mg PO BID@0900,1700 10/29/17 [History] Aspirin EC [Ecotrin Low Dose] 81 mg PO DAILY@0900 03/05/18 [History] Atorvastatin [Lipitor] 40 mg PO HS #30 tab 03/10/18 [Rx] Clopidogrel [Plavix] 75 mg PO DAILY #30 tab 03/10/18 [Rx] Metoprolol Tartrate [Lopressor] 50 mg PO BID #60 tab 03/10/18 [Rx] Insulin Glargine,Hum.rec.anlog [Basaglar Kwikpen U-100] 33 units SQ HS 03/16/18 [History] Bisacodyl [Dulcolax] 5 mg PO DAILY PRN tablet. 03/18/18 [Rx] Cephalexin [Keflex] 250 mg PO Q6HR #20 cap 03/18/18 [Rx] Lisinopril [Zestril] 10 mg PO DAILY #30 tab 03/18/18 [Rx] traMADol HCL [Ultram] 50 mg PO Q6HR PRN #30 tablet 03/18/18 [Rx] Follow up Appointment(s)/Referral(s): Nakita Meyer MD [Primary Care Provider] - 1-2 days Spike Marquez MD [STAFF PHYSICIAN] - As Needed [facility] [place], [NON-STAFF] - Patient Instructions/Handouts: Gastrointestinal Bleeding (DC), Urinary Tract Infection in Women (DC) Activity/Diet/Wound Care/Special Instructions: continue consistent carb diet as tolerated activity as tolerated, left side flaccid from old CVA Out of bed three times daily 8oz water q 6 hours Indwelling alexander inserted 03/17/18, do not discontinue until UTI is treated,in 1 week discontinue alexander and preform voiding trial. If pt has urinary retention will need to follow with Dr. Delaney Repeat BMP in 3-5 days DX: ESTELLE Crason(sister)
[2018-03-18 12:08] LABS: Glucose,Whole Blood 191 mg/dL (75-99)
== END 2018-03-18 12:52 | DRG 683 ==
LOC: EC 02:58 → 4MS4W 08:01
PROVIDERS: ADMIT Internal Medicine; ATTEND Internal Medicine
PROC: 0T9B70Z Drainage of Bladder with Drainage Device, Via Natural or Artificial Opening (ICD-10-PCS; principal; 2018-03-17)
DX: N17.9 Acute kidney failure, unspecified (principal); E44.0 Moderate protein-calorie malnutrition; I69.354 Hemiplegia and hemiparesis following cerebral infarction affecting left non-dominant side; K92.0 Hematemesis; N39.0 Urinary tract infection, site not specified; E11.9 Type 2 diabetes mellitus without complications; E78.5 Hyperlipidemia, unspecified; E86.0 Dehydration; E87.6 Hypokalemia; F17.200 Nicotine dependence, unspecified, uncomplicated; I10 Essential (primary) hypertension; K59.00 Constipation, unspecified; N20.0 Calculus of kidney; I69.392 Facial weakness following cerebral infarction; Z66 Do not resuscitate; Z79.02 Long term (current) use of antithrombotics/antiplatelets; Z79.899 Other long term (current) drug therapy; Z82.49 Family history of ischemic heart disease and other diseases of the circulatory system; Z87.440 Personal history of urinary (tract) infections; Z82.3 Family history of stroke; Z79.82 Long term (current) use of aspirin; Z79.4 Long term (current) use of insulin; Z88.1 Allergy status to other antibiotic agents; I69.311 Memory deficit following cerebral infarction; Z68.24 Body mass index [BMI] 24.0-24.9, adult; R33.9 Retention of urine, unspecified; Z74.01 Bed confinement status
CPT/HCPCS: 36415; 74018; 74022; 76770; 80048; 80053; 81001; 82150; 83690; 83735; 84145; 85025; 85027; 87086; 96361; 96374; 99285

== ENCOUNTER → 2018-04-07 | Outpatient (CLI) | payer OTHER ==
--- NOTE | 2018-04-07 11:42 | FL ---
MODIFIED SWALLOW / DEGLUTITION STUDY DATE OF EXAM: 04/07/2018 CLINICAL HISTORY: 62-year-old female with stroke and Dysphagia. Tilting episodes. TECHNIQUE: Deglutition study is performed utilizing thin liquid barium, honey and nectar thick liqui d barium, barium thick applesauce, and barium coated cracker. Total fluoroscopy time: 2 minutes 32 seconds. Total images: None, real-time fluoroscopy support was provided to speech pathology. COMPARISON: None. FINDINGS: There is delayed swallow. [id number] aspiration is noted with thin liquids. This is e liminated with chin tuck maneuver. The remaining consistencies show no evidence for penetration or as piration. No significant pharyngeal residue was appreciated. IMPRESSION: 1. Delayed swallow. 2. Mild to moderate aspiration with thin liquids. This is eliminated which chin tuck maneuver. 3. Please refer to speech therapist notes for further details if necessary.
== END | disposition home or self-care (01) ==
LOC: RADFLMAIN 10:13
PROVIDERS: ATTEND Family Medicine
DX: R13.10 Dysphagia, unspecified (principal)
CPT/HCPCS: 74230

== ENCOUNTER 2019-03-04 09:36 | Inpatient (IN) | payer OTHER ==
--- NOTE | 2019-03-04 09:47 | ED ---
General Adult HPI - General Stated complaint: Altered Mental Status Time Seen by Provider: 03/04/19 09:36 Source: patient, EMS, RN notes reviewed, old records reviewed Mode of arrival: EMS - History of Present Illness Initial comments: This is a 63-year-old female history of CVA with left paresis who was sent in from [facility] for evaluation for possible sepsis. Patient was given IV antibiotics, Ceftin, for urinary tract infection for the past 2 days. She seemed to not be getting better he has had decreased activity. Reports of fever and mottling. Patient was sent here by EMS. Patient did seem to respond to personnel. No mildly reported blood glucose over was elevated. She also is reported to be diaphoretic. - Related Data Home Medications Medication Instructions Recorded Confirmed Sertraline HCl [Zoloft] 50 mg PO DAILY@0900 10/29/17 03/04/19 Aspirin EC [Ecotrin Low Dose] 81 mg PO DAILY@0900 03/05/18 03/04/19 Acetaminophen [Tylenol 8 Hour] 650 mg PO Q4H PRN 03/04/19 03/04/19 Benzocaine 20 % Gel [Orajel] 1 applic TOPICAL Q8H PRN 03/04/19 03/04/19 Bisacodyl [Dulcolax] 5 mg PO DAILY PRN 03/04/19 03/04/19 Cefuroxime Axetil [Ceftin] 500 mg PO BID@0000,1200 03/04/19 03/04/19 Clopidogrel [Plavix] 75 mg PO HS 03/04/19 03/04/19 Clotrimazole/Betamethasone Dip 1 applic TOPICAL BID PRN 03/04/19 03/04/19 [Lotrisone Cream] Hydrophilic Cream [Triad Cream] 1 applic TOPICAL BID 03/04/19 03/04/19 Insulin Glargine,Hum.rec.anlog 50 unit SQ HS 03/04/19 03/04/19 [Lantus Solostar] Insulin Regular [HumuLIN R] 4 units SQ BID@1100,1700 03/04/19 03/04/19 Lactose-Reduced Food [Ensure Plus] 120 ml PO TID 03/04/19 03/04/19 Lactulose 10 gm PO BID 03/04/19 03/04/19 Magnesium Hydroxide [Milk of 2,400 mg PO Q72H 03/04/19 03/04/19 Magnesia] Ondansetron [Zofran] 4 mg PO Q8HR PRN 03/04/19 03/04/19 Pantoprazole Sodium [Protonix] 40 mg PO DAILY 03/04/19 03/04/19 Potassium Chloride [Klor-Con 10] 10 meq PO DAILY 03/04/19 03/04/19 metFORMIN HCL [Glucophage] 850 mg PO BID@0900,1700 03/04/19 03/04/19 Previous Rx's Medication Instructions Recorded Atorvastatin [Lipitor] 40 mg PO HS #30 tab 03/10/18 Metoprolol Tartrate [Lopressor] 50 mg PO BID #60 tab 03/10/18 Lisinopril [Zestril] 10 mg PO DAILY #30 tab 03/18/18 Allergies Allergy/AdvReac Type Severity Reaction Status Date / Time Tetracyclines Allergy Unknown Verified 03/04/19 09:51 Review of Systems ROS Statement: Those systems with pertinent positive or pertinent negative responses have been documented in the HPI. ROS Other: All systems not noted in ROS Statement are negative. Limitations: ROS unobtainable due to patients medical condition Past Medical History Past Medical History: CVA/TIA, Diabetes Mellitus, Hyperlipidemia, Hypertension Additional Past Medical History / Comment(s): Pt recently admitted to [facility] on 03/05/18 with brainstem CVA-L sided hemiparesis/speech involvement, UTI with sepesis. Other hx: prior CVA 2005 which "slowed her down mentally" per her sister and LGJuan JYamileth History of Any Multi-Drug Resistant Organisms: None Reported Past Surgical History: Section, Orthopedic Surgery (Left knee) Additional Past Surgical History / Comment(s): Open left knee sx as a teen. Past Anesthesia/Blood Transfusion Reactions: No Reported Reaction Smoking Status: Current every day smoker Past Alcohol Use History: None Reported Past Drug Use History: None Reported - Past Family History Father Family Medical History: CVA/TIA, Myocardial Infarction (LA) Additional Family Medical History / Comment(s): Father had a LA at the age of 56yrs. He had a CVA at 71 yrs of age and after that event. Mother Family Medical History: Hyperlipidemia, Hypertension General Exam - General Exam Comments Initial Comments: This is a well-developed asthenic appearing female who does appear to be awake alert but lethargic General appearance: alert, lethargic Head exam: Present: atraumatic, normocephalic, normal inspection Eye exam: Present: normal appearance, PERRL, EOMI. Absent: scleral icterus, conjunctival injection, periorbital swelling ENT exam: Present: mucous membranes dry Neck exam: Present: normal inspection, other (No stridor JVD or bruits patient does look toward the right). Absent: tenderness, meningismus, lymphadenopathy Respiratory exam: Present: decreased breath sounds. Absent: respiratory distress, wheezes, rales, rhonchi, stridor Cardiovascular Exam: Present: normal rhythm, tachycardia, normal heart sounds. Absent: systolic murmur, diastolic murmur, rubs, gallop, clicks GI/Abdominal exam: Present: soft, normal bowel sounds. Absent: distended, tenderness, guarding, rebound, rigid Extremities exam: Present: full ROM, normal capillary refill, other (Contractures noted on the left). Absent: tenderness, pedal edema, joint swelling, calf tenderness Back exam: Present: normal inspection Neurological exam: Present: alert, altered, CN II-XII intact, motor sensory deficit Psychiatric exam: Present: normal affect, normal mood Skin exam: Present: warm, intact, normal color, diaphoretic. Absent: rash Course Vital Signs 03/04/19 03/04/19 03/04/19 09:37 09:44 10:00 Temperature 99.8 F H Pulse Rate 98 94 Respiratory 30 H 34 H Rate Blood Pressure 117/64 117/64 113/72 O2 Sat by Pulse 97 98 96 Oximetry 03/04/19 03/04/19 03/04/19 10:30 11:00 11:30 Temperature Pulse Rate 86 87 Respiratory 21 28 H Rate Blood Pressure 114/67 105/65 104/58 O2 Sat by Pulse 95 95 Oximetry 03/04/19 03/04/19 03/04/19 12:00 12:30 13:00 Temperature Pulse Rate 86 87 87 Respiratory 20 33 H 21 Rate Blood Pressure 99/48 98/57 95/59 O2 Sat by Pulse 95 96 96 Oximetry 03/04/19 13:30 Temperature Pulse Rate 81 Respiratory 20 Rate Blood Pressure 106/58 O2 Sat by Pulse 95 Oximetry - Reevaluation(s) Reevaluation #1: 03/04/19 14:05 I did discuss the findings with the patient's family as well as the patient patient will be admitted case is also discussed with Dr. Garcia. Medical Decision Making - Medical Decision Making I did discuss findings with the patient family and Dr. Garcia patient will be admitted for inpatient treatment of urinary tract infection dehydration and renal insufficiency and failed outpatient treatment. Pneumonia is also considered. Patient's lactic acid is within normal limits at this time does not demonstrate sepsis - Lab Data Result diagrams: 03/04/19 09:52 03/04/19 09:52 Lab Results 03/04/19 03/04/19 03/04/19 Range/Units 09:52 09:52 09:52 WBC 16.1 H (3.8-10.6) k/uL RBC 4.42 (3.80-5.40) m/uL Hgb 12.2 (11.4-16.0) gm/dL Hct 40.5 (34.0-46.0) % MCV 91.6 (80.0-100.0) fL MCH 27.5 (25.0-35.0) pg MCHC 30.0 L (31.0-37.0) g/dL RDW 14.7 (11.5-15.5) % Plt Count 334 (150-450) k/uL Neutrophils % 88 % Lymphocytes % 7 % Monocytes % 4 % Eosinophils % 0 % Basophils % 0 % Neutrophils # 14.1 H (1.3-7.7) k/uL Lymphocytes # 1.1 (1.0-4.8) k/uL Monocytes # 0.7 (0-1.0) k/uL Eosinophils # 0.0 (0-0.7) k/uL Basophils # 0.0 (0-0.2) k/uL Hypochromasia Slight PT (9.0-12.0) sec INR (<1.2) APTT (22.0-30.0) sec Sodium 155 H (137-145) mmol/L Potassium 4.1 (3.5-5.1) mmol/L Chloride 124 H (98-107) mmol/L Carbon Dioxide 19 L (22-30) mmol/L Anion Gap 12 mmol/L BUN 110 H* (7-17) mg/dL Creatinine 1.87 H (0.52-1.04) mg/dL Est GFR (CKD-EPI)AfAm 33 (>60 ml/min/1.73 sqM) Est GFR (CKD-EPI)NonAf 29 (>60 ml/min/1.73 sqM) Glucose 314 H (74-99) mg/dL Plasma Lactic Acid Irineo 1.3 (0.7-2.0) mmol/L Calcium 9.1 (8.4-10.2) mg/dL Total Bilirubin 0.4 (0.2-1.3) mg/dL AST 15 (14-36) U/L ALT 12 (9-52) U/L Alkaline Phosphatase 49 (38-126) U/L Creatine Kinase 63 (30-135) U/L Total Protein 6.8 (6.3-8.2) g/dL Albumin 3.5 (3.5-5.0) g/dL Cortisol 61 ug/dL Urine Color Urine Appearance (Clear) Urine pH (5.0-8.0) Ur Specific [place] (1.001-1.035) Urine Protein (Negative) Urine Glucose (UA) (Negative) Urine Ketones (Negative) Urine Blood (Negative) Urine Nitrite (Negative) Urine Bilirubin (Negative) Urine Urobilinogen (<2.0) mg/dL Ur Leukocyte Esterase (Negative) Urine RBC (0-5) /hpf Urine WBC (0-5) /hpf Urine WBC Clumps (None) /hpf Ur Squamous Epith Cells (0-4) /hpf Urine Bacteria (None) /hpf Urine Mucus (None) /hpf 03/04/19 03/04/19 Range/Units 09:52 11:22 WBC (3.8-10.6) k/uL RBC (3.80-5.40) m/uL Hgb (11.4-16.0) gm/dL Hct (34.0-46.0) % MCV (80.0-100.0) fL MCH (25.0-35.0) pg MCHC (31.0-37.0) g/dL RDW (11.5-15.5) % Plt Count (150-450) k/uL Neutrophils % % Lymphocytes % % Monocytes % % Eosinophils % % Basophils % % Neutrophils # (1.3-7.7) k/uL Lymphocytes # (1.0-4.8) k/uL Monocytes # (0-1.0) k/uL Eosinophils # (0-0.7) k/uL Basophils # (0-0.2) k/uL Hypochromasia PT 11.1 (9.0-12.0) sec INR 1.1 (<1.2) APTT 23.1 (22.0-30.0) sec Sodium (137-145) mmol/L Potassium (3.5-5.1) mmol/L Chloride (98-107) mmol/L Carbon Dioxide (22-30) mmol/L Anion Gap mmol/L BUN (7-17) mg/dL Creatinine (0.52-1.04) mg/dL Est GFR (CKD-EPI)AfAm (>60 ml/min/1.73 sqM) Est GFR (CKD-EPI)NonAf (>60 ml/min/1.73 sqM) Glucose (74-99) mg/dL Plasma Lactic Acid Irineo (0.7-2.0) mmol/L Calcium (8.4-10.2) mg/dL Total Bilirubin (0.2-1.3) mg/dL AST (14-36) U/L ALT (9-52) U/L Alkaline Phosphatase (38-126) U/L Creatine Kinase (30-135) U/L Total Protein (6.3-8.2) g/dL Albumin (3.5-5.0) g/dL Cortisol ug/dL Urine Color Yellow Urine Appearance Cloudy H (Clear) Urine pH 5.0 (5.0-8.0) Ur Specific [place] 1.017 (1.001-1.035) Urine Protein Trace H (Negative) Urine Glucose (UA) 1+ H (Negative) Urine Ketones Negative (Negative) Urine Blood Small H (Negative) Urine Nitrite Negative (Negative) Urine Bilirubin Negative (Negative) Urine Urobilinogen <2.0 (<2.0) mg/dL Ur Leukocyte Esterase Large H (Negative) Urine RBC 5 (0-5) /hpf Urine WBC 62 H (0-5) /hpf Urine WBC Clumps Moderate H (None) /hpf Ur Squamous Epith Cells <1 (0-4) /hpf Urine Bacteria Occasional H (None) /hpf Urine Mucus Rare H (None) /hpf - EKG Data -: EKG Interpreted by [place] EKG shows normal: sinus rhythm (Sinus rhythm of 94. Interval 126 QRS duration 84 QT since QTC 362/452 left exodeviation LVH nonspecific inferior and anterior configuration is.) - Radiology Data Radiology results: report reviewed (I did review the imaging and report evidence of basilar atelectasis infiltrate as not ruled out), image reviewed Disposition Clinical Impression: Urinary tract infection, Pneumonitis, Dehydration, Febrile illness, acute, Failure of outpatient treatment Disposition: ADMITTED IP TO THIS [facility] Condition: Fair Referrals: Mehul Batista MD [Primary Care Provider] - 1-2 days
[2019-03-04] MEDS: SODIUM CHLORIDE 0.9% 1,000 ML IV SCH (09:55)
[2019-03-04] MEDS: SODIUM CHLORIDE 0.9% 500 ML 500 ML IV SCH ×2 (09:55→11:25)
[2019-03-04 10:06] LABS: Basophils % (A) 0 %; Eosinophils % (A) 0 %; HCT 40.5 % (34.0-46.0); HGB 12.2 gm/dL (11.4-16.0); Hypochromasia Slight; Lymphocytes # (A) 1.1 k/uL (1.0-4.8); Lymphocytes % (A) 7 %; MCH 27.5 pg (25.0-35.0); MCV 91.6 fL (80.0-100.0); Mean Platelet Volume 7.6; Monocytes # (A) 0.7 k/uL (0-1.0); Monocytes % (A) 4 %; Neutrophils # (A) 14.1 k/uL (1.3-7.7); Neutrophils % (A) 88 %; Platelet Count 334 k/uL (150-450); RBC 4.42 m/uL (3.80-5.40); RDW 14.7 % (11.5-15.5); WBC 16.1 k/uL (3.8-10.6)
[2019-03-04 10:14] LABS: Albumin 3.5 g/dL (3.5-5.0); Calcium 9.1 mg/dL (8.4-10.2); Potassium 4.1 mmol/L (3.5-5.1); Total Bilirubin 0.4 mg/dL (0.2-1.3); Total Protein 6.8 g/dL (6.3-8.2)
[2019-03-04 10:32] LABS: INR 1.1 (<1.2); Partial Thromboplastin Time 23.1 sec (22.0-30.0); Prothrombin Time 11.1 sec (9.0-12.0)
--- NOTE | 2019-03-04 10:48 | XR ---
EXAMINATION TYPE: XR chest 2V DATE OF EXAM: 03/04/2019 COMPARISON: Prior chest x-ray 03/05/2018 HISTORY: Altered mental status, fever TECHNIQUE: Frontal and lateral views of the chest are obtained. FINDINGS: Lung volumes are low. The patient is rotated. There are overlying cardiac leads. Patchy bas ilar density is noted. There is no focal pleural effusion or pneumothorax seen. The cardiac silhouet te size is stable. The aorta is dense. The osseous structures are intact. IMPRESSION: Possible basilar atelectasis, consider follow-up PA and lateral chest x-ray for better e valuation. Cardiomegaly.
[2019-03-04 11:37] LABS: Appearance,Urine Cloudy (Clear); Bacteria,Urine Occasional /hpf; Bilirubin,Urine Negative (Negative); Blood,Urine Small (Negative); Color,Urine Yellow; Glucose,Urine (UA) 1+ (Negative); Ketones,Urine Negative (Negative); Leukocyte Esterase,Urine Large (Negative); Mucus,Urine Rare /hpf; Nitrite,Urine Negative (Negative); Protein,Urine Trace (Negative); RBC,Urine 5 /hpf (0-5); Specific Gravity,Urine 1.017 (1.001-1.035); Squamous Epithelial Cell,Urine <1 /hpf (0-4); Urobilinogen,Urine <2.0 mg/dL (<2.0); WBC,Urine 62 /hpf (0-5)
[2019-03-04] MEDS ORDERED: SODIUM CHLORIDE 0.9% 1,000 ML IV STA (12:34)
[2019-03-04] MEDS ORDERED: cefTRIAXone IN SWFI 1,000 MG/10 ML SYRINGE IVP STA (12:35)
[2019-03-04] MEDS ORDERED: IPRATROPIUM-ALBUTEROL 3 ML NEB INHALATION PRN (14:10)
[2019-03-04] MEDS ORDERED: PNEUMONIA PROTOCOL UTILIZED 1 EACH MISC PO PRN (14:10)
[2019-03-04] MEDS ORDERED: AZITHROMYCIN 500 MG in SODIUM CHLORIDE 0.9% 250 ML IVPB STA (14:10)
[2019-03-04] MEDS ORDERED: ACETAMINOPHEN TAB 325 MG TAB PO PRN (14:12)
[2019-03-04] MEDS ORDERED: BISACODYL 5 MG TABLET.DR PO PRN (14:12)
[2019-03-04] MEDS ORDERED: CLOTRIMAZOLE/BETAMETH 1-0.05% CREAM 45 GM TUBE TOPICAL PRN (14:12)
[2019-03-04] MEDS ORDERED: ONDANSETRON 4 MG TAB PO PRN (14:12)
[2019-03-04] MEDS ORDERED: NON-FORMULARY DRUG (Lactose-Reduced Food [Ensure Plus] 120 ML) PO SCH (16:00)
[2019-03-04 16:47] LABS: Glucose,Whole Blood 102 mg/dL (75-99)
[2019-03-04] MEDS ORDERED: metFORMIN 850 MG TAB PO SCH (17:00)
[2019-03-04] MEDS ORDERED: INSULIN REGULAR 100 UNIT/ML VIAL SQ SCH (17:00)
[2019-03-04] MEDS: MAGNESIUM HYDROXIDE 2,400 MG/10 ML CUP PO SCH (17:28)
[2019-03-04] MEDS ORDERED: INSULIN ASPART (NovoLOG) 100 UNIT/ML VIAL SQ SCH (17:30)
[2019-03-04 18:04] LABS: Glucose,Whole Blood 110 mg/dL (75-99)
[2019-03-04] MEDS ORDERED: LACTATED RINGERS 1,000 ML IV SCH (20:30)
[2019-03-04] MEDS: HYDROPHILIC CREAM 180 GM TUBE TOPICAL SCH (20:41)
[2019-03-04] MEDS ORDERED: INSULIN DETEMIR (LEVEMIR) 100 UNIT/ML SYR SQ SCH (21:00)
--- NOTE | 2019-03-04 21:13 | HP ---
HISTORY AND PHYSICAL DATE OF ADMISSION AND SERVICE: 03/04/2019 PRESENTING COMPLAINT: Lethargic. HISTORY OF PRESENTING COMPLAINT: This is a 63-year-old patient who is a resident of [facility] being followed by Dr. Batista. Chronic stable medical conditions include nephrolithiasis, diabetes, hypertension, hyperlipidemia, debility, left hemiparesis from a brainstem stroke in 2018. The patient needs assistance with feeding; normally is on a chopped and thin liquid diet. The patient can say occasional words. Also has dysphagia and dysarthria. She has weakness on the left side and is pretty much bedbound. The patient also has a stage I sacral decubitus ulcer. The patient is not able to communicate much. She was sent in, as she was less responsive for the last 2 days, barely eating. Also had some fever and was being treated for a UTI and sepsis with Ceftin. The patient was having fevers there. Then she was brought in here. Like stated, the patient herself cannot really give much of a history. History is also reported from the nurse and from the ER physician. REVIEW OF SYSTEMS: Really cannot be done. See above, as patient is not really able to talk much. PAST MEDICAL HISTORY: 1. Diabetes mellitus, type 2. 2. Hyperlipidemia. 3. Hypertension. 4. 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 5. Also had a stroke in 2006 which slowed her down mentally. 6. Moderate protein-calorie malnutrition. 7. Constipation. PAST SURGICAL HISTORY: 1. Left knee surgery as a teen. 2. . PSYCH HISTORY: Depression. SOCIAL HISTORY: Lives at [facility] on the [facility]. Bedbound. On a regular diet with chopped meats, thin liquids. Smoked for close to 40 years, stopped in 2018. Alcohol none. FAMILY HISTORY: Myocardial infarction. Father had a heart attack at the age of 56 and at age 71 of a stroke. HOME MEDICATIONS: 1. Lotrisone 1 application topically b.i.d. p.r.n. 2. Triad cream topically b.i.d. 3. Zofran 4 mg q.8 p.r.n. 4. Orajel topically q.8 p.r.n. 5. Milk of Magnesia 2400 mg q.72 hours. 6. Dulcolax 5 mg p.o. daily p.r.n. 7. Tylenol 8-Hour 650 mg q.4 p.r.n. 8. Glucophage 850 mg p.o. b.i.d. 9. Ensure Plus 120 mL p.o. t.i.d. 10.Lopressor 50 mg b.i.d. 11.Lactulose 10 grams p.o. b.i.d. 12.Humulin-R 4 units subcutaneously b.i.d. 13.Ceftin 500 mg b.i.d. 14.Zoloft 50 mg p.o. daily. 15.Klor-Con 10 mEq p.o. daily. 16.Protonix 40 mg p.o. daily. 17.Zestril 10 mg p.o. daily. 18.Lantus 50 units subcutaneously at bedtime. 19.Plavix 75 mg p.o. at bedtime. 20.Lipitor 40 mg at bedtime. 21.Aspirin 81 mg p.o. daily. ALLERGIES: TETRACYCLINE. PHYSICAL EXAMINATION: VITAL SIGNS ON PRESENTATION: Temperature 99.8, pulse 98, respiration 30, blood pressure 110/64, pulse ox 97% on 3 L. GENERAL APPEARANCE: Average build. Lying in bed, awake though tired-appearing. EYES: Pupils equal. Conjunctivae normal. HEENT: External appearance of nose and ears normal. Oral cavity with poor hygiene, a lot of residue. NECK: JVD unable to assess. Mass not palpable. RESPIRATORY: Effort increased. LUNGS: Diminished breath sounds. Questionable right basal crackles. CARDIOVASCULAR: First and second sounds normal. No edema. ABDOMEN: Soft, non-tender. Liver and spleen not palpable. LYMPHATIC: No lymph node palpable in neck or axillae. PSYCHIATRY: Unable to assess, as patient NEUROLOGICAL: Pupils equal. No facial asymmetry. Patient may speak an occasional word. Power on the left side is 0 to 1 over 5. GENITOURINARY: Patient has a Jc catheter that was placed in the ER. INVESTIGATIONS: White count 16.1, hemoglobin 12.2, sodium 155, chloride 124, bicarb 19, BUN 109, creatinine 1.87, glucose 314. UA positive for leukocyte esterase, WBC. Chest x-ray film, personally reviewed by me, shows possible right basilar infiltrate. EKG tracing, personally reviewed by me, shows normal sinus rhythm and poor R-wave progression. ASSESSMENT: 1. Possible right lower lobe pneumonia, possible aspiration. 2. Acute urinary tract infection, probably from cystitis, having failed outpatient treatment. 3. Chronic nephrolithiasis. 4. Diabetes mellitus, type 2, chronically on insulin. 5. Essential hypertension. 6. Hyperlipidemia. 7. Chronic medical debility. Patient is bedbound. 8. Chronic left hemiparesis from a prior brainstem stroke. 9. Severe hypernatremia from free water deficit, POA. 10.Acute renal failure from poor oral intake, likely a combination of acute tubular necrosis and prerenal. 11.Patient's sister Yamileth is DPOA. PLAN: Patient is put on IV ceftriaxone. Will change normal saline to lactated Ringer's and follow electrolytes closely. Aspiration precautions will be maintained. Feeding will be all assisted. At the present time, patient's Glucophage, Humulin-R, Ceftin, potassium, Zestril will all be discontinued. Accu-Cheks will be closely followed. IESHA / BROOK: [id number] /
[2019-03-04 21:24] LABS: Glucose,Whole Blood 90 mg/dL (75-99)
[2019-03-04] MEDS: INSULIN ASPART (NovoLOG) 100 UNIT/ML VIAL SQ SCH (21:45)
[2019-03-04] MEDS: METOPROLOL TARTRATE 50 MG TAB PO SCH (22:00)
[2019-03-04] MEDS: CLOPIDOGREL 75 MG TAB PO SCH (22:00)
[2019-03-04] MEDS: ATORVASTATIN 40 MG TAB PO SCH (22:00)
[2019-03-04] MEDS: LACTULOSE 20 GM/30 ML CUP PO SCH (22:00)
[2019-03-04 22:25] LABS: Glucose,Whole Blood 76 mg/dL (75-99)
[2019-03-04] MEDS: INSULIN DETEMIR (LEVEMIR) 100 UNIT/ML SYR SQ SCH (22:41)
[2019-03-04] MEDS: DEXTROSE 5%-0.45% NACL 1,000 ML IV SCH (22:53)
[2019-03-04 23:20] LABS: Glucose,Whole Blood 124 mg/dL (75-99)
[2019-03-05 02:16] LABS: Glucose,Whole Blood 152 mg/dL (75-99)
[2019-03-05] MEDS: DEXTROSE 5%-0.45% NACL 1,000 ML IV SCH ×2 (05:52→22:43)
[2019-03-05 07:13] LABS: Glucose,Whole Blood 182 mg/dL (75-99)
[2019-03-05] MEDS: INSULIN ASPART (NovoLOG) 100 UNIT/ML VIAL SQ SCH ×4 (07:48→20:56)
[2019-03-05] MEDS: METOPROLOL TARTRATE 50 MG TAB PO SCH ×2 (07:49→21:41)
[2019-03-05] MEDS: ASPIRIN 81 MG PO SCH (07:49)
[2019-03-05] MEDS: SERTRALINE 50 MG TAB PO SCH (07:49)
[2019-03-05] MEDS: PANTOPRAZOLE 40 MG TABLET PO SCH (08:00)
[2019-03-05] MEDS ORDERED: LISINOPRIL 10 MG TAB PO SCH (09:00)
[2019-03-05] MEDS ORDERED: POTASSIUM CHLORIDE ER 10 MEQ TAB.ER.PRT PO SCH (09:00)
[2019-03-05 09:06] LABS: Calcium 8.6 mg/dL (8.4-10.2); Potassium 3.5 mmol/L (3.5-5.1)
--- NOTE | 2019-03-05 11:55 | XR ---
EXAMINATION TYPE: XR chest 2V DATE OF EXAM: 03/05/2019 HISTORY: pneumonia. REFERENCE: Previous study dated 11/04/2018. FINDINGS: Lungs are clear. Pleural space are clear. Heart is minimally enlarged. IMPRESSION: MILD CARDIOMEGALY.
[2019-03-05 11:58] LABS: Glucose,Whole Blood 240 mg/dL (75-99)
[2019-03-05 12:10] VITALS: BMI 22.6
[2019-03-05] MEDS ORDERED: INSULIN REGULAR 100 UNIT/ML VIAL SQ ONE (14:11)
--- NOTE | 2019-03-05 15:44 | PN ---
PROGRESS NOTE ADDENDUM: ASSESSMENT: Stage 1-2 sacral decubitus ulcer, present on admission. MMODL / IJN: [id number] /
--- NOTE | 2019-03-05 15:44 | PN ---
PROGRESS NOTE DATE OF SERVICE: 03/05/2019 PRESENTING COMPLAINT: Tired. INTERVAL HISTORY: This patient with prior stroke, left hemiparesis, dysphagia, dysarthria, admitted with acute renal failure, severe hyponatremia, pneumonia. Doing better today. Patient's sister at the bedside. The patient is more awake, actually speaking a few more words. Getting IV fluids. REVIEW OF SYSTEMS: Review of systems was attempted for constitutional, cardiovascular, GI, pulmonary; relevant findings as above. CURRENT MEDICATIONS: Reviewed that include IV ceftriaxone, IV fluids. PHYSICAL EXAMINATION: VITAL SIGNS: Temperature 97.4, pulse 79, respirations 16, blood pressure 137/85, pulse ox 96% on 2 L. GENERAL APPEARANCE: Lying in bed, more awake. EYES: Pupils equal., conjunctivae normal. NECK: JVD unable to assess. Mass not palpable. RESPIRATORY: Effort increased. LUNGS: Decreased breath sounds. CARDIOVASCULAR: 1st and 2nd sounds normal. No edema. ABDOMEN: Soft, nontender. Liver and spleen not palpable. PSYCHIATRY: The patient is able answer simple questions. NEUROLOGICAL: The patient's speech is slow and chronic weakness on the left side. INVESTIGATIONS: Sodium 158, potassium 3.5, BUN 52, creatinine 0.93. ASSESSMENT: 1. Right lower lobe pneumonia, possible aspiration, acute urinary tract infection, possibly from cystitis, having failed outpatient treatment. 2. Chronic nephrolithiasis. 3. Diabetes mellitus type 2, chronically on insulin. 4. Essential hypertension. 5. Hyperlipidemia. 6. Chronic medical debility patient is bed-bound. 7. Chronic left hemiparesis from prior brainstem stroke. 8. Severe hyponatremia from free water deficit, POA, worsening. 9. Acute renal failure from poor oral intake, combination of acute tubular necrosis and prerenal. 10.Patient's sister Yamileth is DPOA. PLAN: We will put the patient on half saline. Continue current medication and treatment plan. Follow. MMODL / IJN: [id number] /
[2019-03-05] MEDS ORDERED: AZITHROMYCIN 500 MG TAB PO SCH (16:00)
[2019-03-05] MEDS: SODIUM CHLORIDE 0.45% 1,000 ML IV SCH (16:40)
[2019-03-05 17:03] LABS: Glucose,Whole Blood 224 mg/dL (75-99)
[2019-03-05] MEDS: HYDROPHILIC CREAM 180 GM TUBE TOPICAL SCH ×2 (18:22→21:44)
[2019-03-05] MEDS: LACTULOSE 20 GM/30 ML CUP PO SCH ×3 (18:22→21:41)
[2019-03-05 20:32] LABS: Glucose,Whole Blood 131 mg/dL (75-99)
[2019-03-05] MEDS: CLOPIDOGREL 75 MG TAB PO SCH (20:55)
[2019-03-05] MEDS: ATORVASTATIN 40 MG TAB PO SCH (20:56)
[2019-03-05] MEDS: INSULIN DETEMIR (LEVEMIR) 100 UNIT/ML SYR SQ SCH (21:41)
[2019-03-05] MEDS ORDERED: INSULIN DETEMIR (LEVEMIR) 100 UNIT/ML SYR SQ SCH (22:45)
[2019-03-05 23:21] LABS: Hemoglobin A1C 7.5 % (4.0-6.0)
[2019-03-06] MEDS: SODIUM CHLORIDE 0.45% 1,000 ML IV SCH ×4 (05:04→22:00)
[2019-03-06 07:31] LABS: Glucose,Whole Blood 103 mg/dL (75-99)
[2019-03-06] MEDS: METOPROLOL TARTRATE 50 MG TAB PO SCH ×2 (08:24→21:09)
[2019-03-06] MEDS: INSULIN ASPART (NovoLOG) 100 UNIT/ML VIAL SQ SCH ×4 (08:24→20:27)
[2019-03-06] MEDS: PANTOPRAZOLE 40 MG TABLET PO SCH (08:24)
[2019-03-06] MEDS: ASPIRIN 81 MG PO SCH (08:24)
[2019-03-06] MEDS: LACTULOSE 20 GM/30 ML CUP PO SCH ×2 (08:24→21:09)
[2019-03-06] MEDS: SERTRALINE 50 MG TAB PO SCH (08:24)
[2019-03-06] MEDS: HYDROPHILIC CREAM 180 GM TUBE TOPICAL SCH ×2 (08:25→20:57)
[2019-03-06 09:25] LABS: African American GFR (CKD) >90 (>60 ml/min/1.73 sqM); Anion Gap 4 mmol/L; Blood Urea Nitrogen 24 mg/dL (7-17); Calcium 8.5 mg/dL (8.4-10.2); Carbon Dioxide 26 mmol/L (22-30); Chloride 123 mmol/L (98-107); Glucose 90 mg/dL (74-99); Potassium 3.4 mmol/L (3.5-5.1); Sodium 153 mmol/L (137-145)
[2019-03-06 11:53] LABS: Glucose,Whole Blood 94 mg/dL (75-99)
[2019-03-06 17:04] LABS: Glucose,Whole Blood 148 mg/dL (75-99)
[2019-03-06 20:11] LABS: Glucose,Whole Blood 102 mg/dL (75-99)
[2019-03-06] MEDS: DEXTROSE 5%-0.45% NACL 1,000 ML IV SCH ×2 (20:47)
[2019-03-06] MEDS: CLOPIDOGREL 75 MG TAB PO SCH (21:08)
[2019-03-06] MEDS: metFORMIN 500 MG TAB PO SCH (21:08)
[2019-03-06] MEDS: ATORVASTATIN 40 MG TAB PO SCH (21:09)
--- NOTE | 2019-03-06 22:41 | PN ---
PROGRESS NOTE DATE OF SERVICE: March 06, 2019. PRESENTING COMPLAINT: Tired. INTERVAL HISTORY: Patient with prior stroke, left hemiparesis, dysphagia, dysarthria with acute renal failure, severe hypernatremia, pneumonia, tolerating about 25% of her diet. Sugars had been running low hence insulin was being scaled back. Getting IV fluids at half saline. REVIEW OF SYSTEMS: Done for constitutional, cardiovascular, GI, pulmonary; relevant findings as above. CURRENT MEDICATIONS: Reviewed that include half saline at 75 mL an hour. PHYSICAL EXAMINATION: VITAL SIGNS: Temperature 99, pulse 77, respirations 16, blood pressure 108/75, pulse ox 98% on 2 L. GENERAL APPEARANCE: Lying in bed, awake. EYES: Pupils are equal. Conjunctivae normal. NECK: JVD unable to assess. Mass not palpable. RESPIRATORY: Effort normal. LUNGS: Decreased breath sounds. CARDIOVASCULAR: 1st and 2nd sounds normal. No edema. ABDOMEN: Soft, nontender. Liver and spleen not palpable. NEUROLOGICAL: Speech is slow. Chronic weakness on the left side. INVESTIGATIONS: Sodium 153, chloride 123, BUN 24, creatinine 0.69. ASSESSMENT: 1. Right lobe pneumonia, possible aspiration. 2. Acute urinary tract infection from cystitis, having failed outpatient treatment. 3. Chronic nephrolithiasis. 4. Diabetes mellitus type 2, chronically on insulin with hypoglycemia, sugars still running on the lower side. 5. Essential hypertension. 6. Hyperlipidemia. 7. Chronic medical debility patient is bed-bound. 8. Chronic left hemiparesis from prior brainstem stroke. 9. Chronic hypernatremia from free water deficit, POA, slow to respond. 10.Acute renal failure from poor oral intake, combination of acute tubular necrosis and prerenal. 11.Patient's sister Yamileth is DPOA. 12.CODE STATUS: DO NOT RESUSCITATE. PLAN: At this point, we will continue with half saline. Increase to 100 mL an hour. Renal function is greatly improved. Check a BMP in the morning. Overall prognosis is guarded. MMODL / IJN: [id number] /
[2019-03-07] MEDS: metFORMIN 500 MG TAB PO SCH ×2 (07:47→17:06)
[2019-03-07] MEDS: INSULIN ASPART (NovoLOG) 100 UNIT/ML VIAL SQ SCH ×4 (07:47→22:00)
[2019-03-07] MEDS: PANTOPRAZOLE 40 MG TABLET PO SCH (07:47)
[2019-03-07] MEDS: SODIUM CHLORIDE 0.45% 1,000 ML IV SCH ×2 (07:48→22:21)
[2019-03-07] MEDS: LACTULOSE 20 GM/30 ML CUP PO SCH ×2 (07:52→22:01)
[2019-03-07] MEDS: HYDROPHILIC CREAM 180 GM TUBE TOPICAL SCH ×2 (07:53→22:01)
[2019-03-07] MEDS: SERTRALINE 50 MG TAB PO SCH (07:53)
[2019-03-07] MEDS: ASPIRIN 81 MG PO SCH (07:53)
[2019-03-07] MEDS: METOPROLOL TARTRATE 50 MG TAB PO SCH ×2 (07:53→21:59)
[2019-03-07 08:31] LABS: African American GFR (CKD) >90 (>60 ml/min/1.73 sqM); Anion Gap 10 mmol/L; Blood Urea Nitrogen 19 mg/dL (7-17); Calcium 8.4 mg/dL (8.4-10.2); Carbon Dioxide 23 mmol/L (22-30); Chloride 117 mmol/L (98-107); Glucose 151 mg/dL (74-99); Potassium 3.5 mmol/L (3.5-5.1); Sodium 150 mmol/L (137-145)
[2019-03-07 09:58] LABS: Glucose,Whole Blood 165 mg/dL (75-99)
[2019-03-07 11:59] LABS: Glucose,Whole Blood 123 mg/dL (75-99)
[2019-03-07] MEDS: MAGNESIUM HYDROXIDE 2,400 MG/10 ML CUP PO SCH (13:59)
[2019-03-07 16:38] LABS: Glucose,Whole Blood 143 mg/dL (75-99)
[2019-03-07 20:35] LABS: Glucose,Whole Blood 196 mg/dL (75-99)
[2019-03-07 21:47] LABS: Glucose,Whole Blood 202 mg/dL (75-99)
[2019-03-07] MEDS: CLOPIDOGREL 75 MG TAB PO SCH (21:59)
[2019-03-07] MEDS: ATORVASTATIN 40 MG TAB PO SCH (21:59)
--- NOTE | 2019-03-08 00:17 | PN ---
PROGRESS NOTE DATE OF SERVICE: 03/07/2019. PRESENTING ILLNESS: Tired. INTERVAL HISTORY: Patient with prior stroke, left hemiparesis, dysphagia, dysarthria with acute renal failure, severe hyponatremia, pneumonia. Tolerating her diet, not enough fluid intake. Sodium is slowly coming down, though still elevated. REVIEW OF SYSTEMS: Done for constitutional, cardiovascular, GI, pulmonary; relevant findings as above. CURRENT MEDICATIONS: Reviewed, that include half saline at 100 mL an hour. PHYSICAL EXAMINATION: Temperature 98.6, pulse 72, respiratory rate 18, blood pressure 143/84, pulse ox 98% on 2 L. GENERAL: Lying in bed, awake. EYES: Pupils equal. Conjunctivae normal. NECK: JVD unable to assess. Mass not palpable. Respiratory effort normal. LUNGS: Decreased breath sounds. CARDIOVASCULAR: 1st and 2nd sounds normal. No edema. ABDOMEN: Soft, nontender. Liver and spleen not palpable. NEUROLOGIC: Speech is slow. Chronic weakness on the left side. INVESTIGATIONS: Sodium 150, chloride 117, BUN 17, creatinine 0.61. Accu-Cheks are noted. ASSESSMENT: 1. Right lobe pneumonia, possible aspiration. 2. Acute urinary tract infection from cystitis, having failed outpatient treatment. 3. Chronic nephrolithiasis. 4. Diabetes mellitus type 2, chronically on insulin with hypoglycemia. Sugars being followed. 5. Essential hypertension. 6. Hyperlipidemia. 7. Chronic medical debility, patient is bed-bound. 8. Chronic left hemiparesis and prior stroke. 9. Chronic hypernatremia from free water deficit, slow to respond, POA. 10.Acute renal failure from poor oral intake, combination of ATN and prerenal improved. 11.Patient's sister Yamileth is DPOA. 12.Code status DNR. PLAN: I had a lengthy talk with the patient. I told her to increase oral intake. Meantime, continue patient's half saline. Repeat labs in the morning. MMODL / IJN: [id number] /
[2019-03-08 07:12] LABS: Glucose,Whole Blood 173 mg/dL (75-99)
[2019-03-08 07:36] LABS: African American GFR (CKD) >90 (>60 ml/min/1.73 sqM); Anion Gap 7 mmol/L; Blood Urea Nitrogen 19 mg/dL (7-17); Calcium 8.3 mg/dL (8.4-10.2); Carbon Dioxide 25 mmol/L (22-30); Chloride 115 mmol/L (98-107); Glucose 171 mg/dL (74-99); Potassium 3.5 mmol/L (3.5-5.1); Sodium 147 mmol/L (137-145)
[2019-03-08 08:35] VITALS: BP 160/83; PULSE 74; RESP 12; TEMP 98
[2019-03-08] MEDS: METOPROLOL TARTRATE 50 MG TAB PO SCH (09:26)
[2019-03-08] MEDS: CEFDINIR 300 MG CAP PO SCH ×2 (09:26→09:40)
[2019-03-08] MEDS: ASPIRIN 81 MG PO SCH (09:26)
[2019-03-08] MEDS: PANTOPRAZOLE 40 MG TABLET PO SCH (09:26)
[2019-03-08] MEDS: SERTRALINE 50 MG TAB PO SCH (09:26)
[2019-03-08] MEDS: metFORMIN 500 MG TAB PO SCH (09:26)
[2019-03-08] MEDS: LACTULOSE 20 GM/30 ML CUP PO SCH (09:27)
[2019-03-08] MEDS: INSULIN ASPART (NovoLOG) 100 UNIT/ML VIAL SQ SCH ×2 (09:28→12:54)
[2019-03-08 11:54] LABS: Glucose,Whole Blood 148 mg/dL (75-99)
[2019-03-08] MEDS ORDERED: LISINOPRIL 10 MG TAB PO STA (12:07)
--- NOTE | 2019-03-08 13:02 | DS ---
DISCHARGE SUMMARY DATE OF ADMISSION: 03/04/2019 DATE OF DISCHARGE: 03/08/2019 FINAL DIAGNOSES: 1. Right lower lobe pneumonia suspect gram-negative organism, possibly from aspiration, POA. 2. Acute urinary tract infection from cystitis from Escherichia coli, POA. 3. Chronic nephrolithiasis. 4. Diabetes mellitus type 2, chronically on insulin with hypoglycemia insulin dose was cut back. 5. Essential hypertension. 6. Hyperlipidemia. 7. Chronic medical debility, patient is bed-bound. 8. Chronic left hemiparesis and prior stroke. 9. Acute hypernatremia from free water deficit, POA. 10.Acute renal failure from poor oral intake, combination of acute tubular necrosis and prerenal, POA. 11.Patient's sister Yamileth is DPOA. 12.Code Status: DNR. 13.Sacral decubitus, stage II, POA. HOSPITAL COURSE: This is a patient with chronic left-sided hemiparesis, who is on a chopped and a thin liquid diet, at present, not eating or drinking well and in renal failure. Creatinine was 1.87, did come down to 0.59. Patient's sodium on presentation was up to 158, did come down to 147. Had a long talk with the patient. Dietitian also saw the patient. Encouraged more oral fluids. The patient is treated with antibiotics for the aspiration pneumonia. Doing much better. On examination, temperature 98, pulse 74, respiration 12, blood pressure 160/83, pulse ox 99% on 2 L. LUNGS: Fair air entry. The patient is awake, able to answer questions slowly. Chronic left-sided weakness. INVESTIGATIONS: Potassium 3.5. BUN 19, creatinine 0.59. Sodium 147. Urine culture growing E coli. DISCHARGE MEDICATIONS: 1. Zoloft 50 mg a day. 2. Aspirin 81 mg a day. 3. Lipitor 40 mg q.h.s. 4. Lopressor 50 mg b.i.d. 5. Tylenol 650 q.4 p.r.n. 6. Orajel 1 topical q.8 p.r.n. 7. Dulcolax 5 mg p.o. daily p.r.n. 8. Plavix 75 mg q.h.s. 9. Lotrisone topical b.i.d. p.r.n. 10.Triad cream 1 topical b.i.d. 11.Ensure Plus 120 mL p.o. t.i.d. 12.Lactulose 10 grams p.o. b.i.d. 13.Milk of magnesia 2400 mg p.o.72 hours. 14.Zofran 4 mg q.8 p.r.n. 15.Protonix 40 mg p.o. daily. 16.Glucophage 850 mg p.o. b.i.d. 17.Omnicef 300 mg p.o. b.i.d. 6 tablets. 18.Insulin Lantus 15 units subcu q.h.s., new dose. 19.Zestril 10 mg p.o. b.i.d. 20.Macrodantin 50 mg q.6, 28 capsules. 21.Accu-Cheks b.i.d. with sliding scale. DISPOSITION: [facility]. Follow up with Dr. Batista at [facility]. Care was discussed with the patient and with the dietitian. Discussion and discharge planning more than 35 minutes. MMODL / IJN: [id number] /
--- NOTE | 2019-03-10 02:43 | CDI ---
Documentation Clarification Form Date: 03/10/19 From: Matt Hogan Phone: call to [phone] Admit Date: 03/05/2019 3:23:00 PM Patient Name: Kay Meeks Visit Number: [id number] Discharge Date: 03/08/2019 3:00:00 PM ATTENTION: The Clinical Documentation Specialists (CDI) and [employer] Coding Staff appreciate your assistance in clarifying documentation. Please respond to the clarification below the line at the bottom and electronically sign. The CDI & [employer] Coding staff will review the response and follow-up if needed. Please note: Queries are made part of the Legal Health Record. If you have any questions, please contact the author of this message via ITS. Dr. Will Garcia The patient presented with the following UTI and Aspiration Pneumonia. In H&P stated "as she was less responsive for the last 2 days, barely eating.Also had some fever and was being treated for a UTI and sepsis." History/Risk Factors: UTI and pneumonia. Clinical Indicators: WBC : 16.1 Lactic acid: 1.3 Vitals signs on admission: Temperature 99.8, pulse 98, respiration 30 Treatment: Iv antibiotics Antibiotics: Ceftriaxone IV Bolus: yes In your professional opinion, please clarify if these findings signify one of the following conditions: Condition Sepsis ruled out Sepsis Other, please specify Unable to determine possible sepsis MTDD
== END 2019-03-08 15:00 | DRG 871 ==
LOC: EC 09:36 → 4SSUR 14:20 → OBSVTOIN 03-05 15:23
PROVIDERS: ADMIT Hospitalist; ATTEND Hospitalist
DX: A41.9 Sepsis, unspecified organism (principal); J69.0 Pneumonitis due to inhalation of food and vomit; N17.0 Acute kidney failure with tubular necrosis; J15.6 Pneumonia due to other Gram-negative bacteria; E87.0 Hyperosmolality and hypernatremia; E87.1 Hypo-osmolality and hyponatremia; I69.354 Hemiplegia and hemiparesis following cerebral infarction affecting left non-dominant side; E11.9 Type 2 diabetes mellitus without complications; E78.5 Hyperlipidemia, unspecified; Z66 Do not resuscitate; E86.0 Dehydration; F17.200 Nicotine dependence, unspecified, uncomplicated; L89.152 Pressure ulcer of sacral region, stage 2; I10 Essential (primary) hypertension; N20.0 Calculus of kidney; F32.9 Major depressive disorder, single episode, unspecified; R53.81 Other malaise; N30.90 Cystitis, unspecified without hematuria; I69.391 Dysphagia following cerebral infarction; Z74.01 Bed confinement status; Z79.02 Long term (current) use of antithrombotics/antiplatelets; Z79.4 Long term (current) use of insulin; Z79.82 Long term (current) use of aspirin; Z79.899 Other long term (current) drug therapy; Z82.3 Family history of stroke; Z82.49 Family history of ischemic heart disease and other diseases of the circulatory system; Z98.891 History of uterine scar from previous surgery; Z88.1 Allergy status to other antibiotic agents
CPT/HCPCS: 36415; 51702; 71046; 80048; 80053; 81001; 82533; 82550; 83036; 83605; 85025; 85610; 85730; 87040; 87077; 87086; 87186; 93005; 94760; 96361; 96374; 99285